=== PATIENT | female | born 1930 | race Caucasian/White ===

== ENCOUNTER 2018-04-16 09:46 | Outpatient (RCR) | payer MEDICARE ==
[~2018-04-16 09:46] MED LIST: ALEN70TA47 PO; COLE3.75 PO; HYDR50TA3 PO; LATA2.5D5 OU; OMEP40CA36 PO; PRAM0.257 PO; WELCHOL PO
== END 2018-05-20 | disposition home or self-care (01) ==
PROVIDERS: ATTEND Physician Assistant
DX: M47.812 Spondylosis without myelopathy or radiculopathy, cervical region (principal); M54.16 Radiculopathy, lumbar region

== ENCOUNTER → 2019-03-11 | Outpatient (CLI) | payer MEDICARE | LOC: CARD 09:57 | PROVIDERS: ATTEND Internal Medicine Cardiovascular Disease | DX: I08.1 Rheumatic disorders of both mitral and tricuspid valves (principal); M79.89 Other specified soft tissue disorders | CPT/HCPCS: 36415; 83880; 84443; 93225; 93226; 93306 ==

== ENCOUNTER → 2019-04-06 | Outpatient (CLI) | payer MEDICARE ==
[~2019-04-06] VITALS: Ht 154.9 cm; Wt 63.5 kg
[~2019-04-06] MED LIST changes: +CATHETER FLUSH 10 ML SYR IV PRN; +REGADENOSON 0.4 MG/5 ML SYR (LEXISCAN) IV ONE
[2019-04-06 09:32] VITALS: BP 204/83
[2019-04-06 09:37] VITALS: BP 158/80
--- NOTE | 2019-04-07 13:19 | STRESS TEST ---
DATE OF SERVICE: 04/06/2019 RESTING AND POST REGADENOSON TECHNETIUM-99M TETROFOSMIN SPECT CT IMAGING ORDERING PHYSICIAN: Dr. Leon. PRIMARY PHYSICIAN: Dr. Mathew. CLINICAL DIAGNOSIS: Shortness of breath. Baseline images were carried out after injection of 10.4 mCi of technetium-99m Tetrofosmin. This was followed by 0.4 mg regadenoson and 30.4 mCi of technetium-99m Tetrofosmin for stress imaging. The electrocardiogram showed sinus rhythm at baseline. There was right bundle branch block. The electrocardiogram did not change significantly with regadenoson infusion. Premature atrial contractions were seen during the study. The patient reported some shortness of breath and cramping of the legs following regadenoson infusion, which resolved in a few minutes. Review of images at rest and following stress does not indicate any significant perfusion defects consistent with any significant myocardial ischemia or infarction. Gated images show normal global left ventricular systolic function with normal regional wall motion and left ventricular ejection fraction is calculated to be 73%. Left ventricular end diastolic volume is 72 mL. TID is absent (0.97). CONCLUSIONS: 1. No evidence of any significant myocardial ischemia or infarction on this study. 2. Normal regional wall motion. 3. Normal global left ventricular systolic function with a calculated ejection fraction of 73%. Job ID: [id number] DocumentID: [id number] Dictated Date: 04/07/2019 09:56:11 Engine Setter Date: 04/07/2019 13:18:52 Dictated By: STEVE LEON MD, MA, FACP, FACC, MTDD
== END ==
LOC: CARD 08:11
PROVIDERS: ATTEND Internal Medicine Cardiovascular Disease
DX: I49.5 Sick sinus syndrome (principal); I48.0 Paroxysmal atrial fibrillation; M79.89 Other specified soft tissue disorders
CPT/HCPCS: 78452; 93017

== ENCOUNTER → 2020-06-01 | Outpatient (CLI) | payer MEDICARE ==
[~2020-06-01] MED LIST changes: -CATHETER FLUSH 10 ML SYR IV PRN; -REGADENOSON 0.4 MG/5 ML SYR (LEXISCAN) IV ONE
== END ==
LOC: CARD 09:47
PROVIDERS: ATTEND Internal Medicine Cardiovascular Disease
DX: I08.3 Combined rheumatic disorders of mitral, aortic and tricuspid valves (principal); I48.0 Paroxysmal atrial fibrillation; I27.29 Other secondary pulmonary hypertension; I49.5 Sick sinus syndrome
CPT/HCPCS: 93306

== ENCOUNTER 2020-10-20 18:58 | Emergency (ER) | payer MEDICARE ==
[~2020-10-20] VITALS: Ht 157.4 cm; Wt 63.5 kg
[2020-10-20] MEDS ORDERED: TRANEXAMIC ACID 100 MG/ML 10 ML INJECTION ONE ×2 (19:03→19:30)
[2020-10-20] MEDS ORDERED: OXYMETAZOLINE (AFRIN) 0.05% NA 30 ML BTL ONE (19:03)
[2020-10-20 19:27] LABS: BASOPHILS # (AUTO) 0.1 10^3/uL (0.0-0.1); BASOPHILS % (AUTO) 1 % (0-10); EOSINOPHILS # (AUTO) 0.2 10^3/uL (0.0-0.3); EOSINOPHILS % (AUTO) 2 % (0-10); HEMATOCRIT 36 % (35-52); HEMOGLOBIN 10.9 g/dL (11.5-16.0); LYMPHOCYTES # (AUTO) 1.7 10^3/uL (1.0-4.0); LYMPHOCYTES % (AUTO) 26 % (12-44); MEAN CORPUSCULAR HEMOGLOBIN 26 pg (25-34); MEAN CORPUSCULAR HGB CONC 30 g/dL (32-36); MEAN CORPUSCULAR VOLUME 86 fL (80-99); MEAN PLATELET VOLUME 9.1 fL (9.0-12.2); MONOCYTES # (AUTO) 0.5 10^3/uL (0.0-1.0); MONOCYTES % (AUTO) 7 % (0-12); NEUTROPHILS # (AUTO) 4.3 10^3/uL (1.8-7.8); NEUTROPHILS % (AUTO) 64 % (42-75); PLATELET COUNT 368 10^3/uL (130-400); WHITE BLOOD COUNT 6.7 10^3/uL (4.3-11.0)
--- NOTE | 2020-10-20 19:29 | ED EENT ---
History of Present Illness General Chief Complaint: Nasal Problems Stated Complaint: NOSEBLEED Source: patient Exam Limitations: no limitations History of Present Illness Date Seen by Provider: Oct 20, 2020 Time Seen by Provider: 17:03 Initial Comments ER with right-sided nosebleed for about 1 hour. She is on warfarin for atrial fibrillation. Timing/Duration: abrupt Severity: moderate Location: nose Associated Symptoms: denies symptoms Allergies and Home Medications Allergies Coded Allergies: diphenhydramine (Verified Allergy, Unknown, 06/17/14) Home Medications Alendronate Sodium 70 Mg Tablet, 70 MG PO TUES @ 0700, (Reported) Hydrochlorothiazide 50 Mg Tablet, 50 MG PO DAILY, (Reported) Latanoprost 2.5 Ml Drops, 1 DROP OU HS, (Reported) Omeprazole 40 Mg Capsule.dr, 40 MG PO DAILY, (Reported) Pramipexole Di-Hcl 0.25 Mg Tablet, 0.25 MG PO HS PRN for RESTLESS LEGS, (Reported) [Welchol] , 625 MG PO BID, (Reported) Patient Home Medication List Home Medication List Reviewed: Yes Review of Systems Review of Systems Constitutional: see HPI Eyes: No Symptoms Reported Ears: No Symptoms Reported Nose: see HPI, epistaxis Mouth: no symptoms reported Throat: no symptoms reported Respiratory: no symptoms reported Cardiovascular: no symptoms reported Gastrointestinal: no symptoms reported Musculoskeletal: no symptoms reported Skin: no symptoms reported Neurological: No Symptoms Reported Past Iswkzjt-Azppxk-Xckvad Hx Immunizations Up To Date Date of Pneumonia Vaccine: Apr 20, 2012 Seasonal Allergies Seasonal Allergies: Yes Past Medical History Hysterectomy, Orthopedic Hypertension Diverticulosis, Irritable Bowel Arthritis Cataract Sleep Difficulties Physical Exam Vital Signs Vital Signs - First Documented 10/20/20 19:00 Temp 36.1 Pulse 123 Resp 20 B/P (MAP) 152/106 (121) Pulse Ox 94 Height, Weight, BMI Height: 5'2.00" Weight: 154lbs. 0.0oz. 69.893192cn; 26.46 BMI Method:Estimated General Appearance: WD/WN, no apparent distress Eyes: bilateral eye normal inspection, bilateral eye PERRL, bilateral eye EOMI Ears: bilateral ear auricle normal, bilateral ear canal normal, bilateral ear TM normal Nose: active bleeding Neck: non-tender, full range of motion Cardiovascular: tachycardia, irregularly irregular Respiratory: no respiratory distress, no accessory muscle use Gastrointestinal: normal bowel sounds, non tender Neurologic/Psychiatric: alert, normal mood/affect, oriented x 3 Skin: warm/dry Progress/Results/Core Measures Results/Orders Lab Results Laboratory Tests Test 10/20/20 19:13 Range/Units White Blood Count 6.7 4.3-11.0 10^3/uL Red Blood Count 4.21 3.80-5.11 10^6/uL Hemoglobin 10.9 L 11.5-16.0 g/dL Hematocrit 36 35-52 % Mean Corpuscular Volume 86 80-99 fL Mean Corpuscular Hemoglobin 26 25-34 pg Mean Corpuscular Hemoglobin Concent 30 L 32-36 g/dL Red Cell Distribution Width 15.2 H 10.0-14.5 % Platelet Count 368 130-400 10^3/uL Mean Platelet Volume 9.1 9.0-12.2 fL Immature Granulocyte % (Auto) 0 % Neutrophils (%) (Auto) 64 42-75 % Lymphocytes (%) (Auto) 26 12-44 % Monocytes (%) (Auto) 7 0-12 % Eosinophils (%) (Auto) 2 0-10 % Basophils (%) (Auto) 1 0-10 % Neutrophils # (Auto) 4.3 1.8-7.8 10^3/uL Lymphocytes # (Auto) 1.7 1.0-4.0 10^3/uL Monocytes # (Auto) 0.5 0.0-1.0 10^3/uL Eosinophils # (Auto) 0.2 0.0-0.3 10^3/uL Basophils # (Auto) 0.1 0.0-0.1 10^3/uL Immature Granulocyte # (Auto) 0.0 0.0-0.1 10^3/uL Prothrombin Time 34.0 H 12.2-14.7 SEC INR Comment 3.3 H 0.8-1.4 Activated Partial Thromboplast Time 46 H 24-35 SEC Sodium Level 138 135-145 MMOL/L Potassium Level 4.5 3.6-5.0 MMOL/L Chloride Level 105 98-107 MMOL/L Carbon Dioxide Level 21 21-32 MMOL/L Anion Gap 12 5-14 MMOL/L Blood Urea Nitrogen 23 H 7-18 MG/DL Creatinine 0.97 0.60-1.30 MG/DL Estimat Glomerular Filtration Rate 54 BUN/Creatinine Ratio 24 Glucose Level 153 H 70-105 MG/DL Calcium Level 8.5 8.5-10.1 MG/DL Corrected Calcium 9.1 8.5-10.1 MG/DL Magnesium Level 2.7 H 1.6-2.4 MG/DL Total Bilirubin 0.3 0.1-1.0 MG/DL Aspartate Amino Transf (AST/SGOT) 13 5-34 U/L Alanine Aminotransferase (ALT/SGPT) 14 0-55 U/L Alkaline Phosphatase 124 40-136 U/L Myoglobin 42.3 10.0-92.0 NG/ML Troponin I < 0.028 <0.028 NG/ML B-Type Natriuretic Peptide 597.2 H <100.0 PG/ML Total Protein 7.9 6.4-8.2 GM/DL Albumin 3.3 3.2-4.5 GM/DL My Orders Orders - MAGNOLIA CLEMENT APRN Oxymetazoline 0.05% Nasal [place] (Afrin 0. (10/20/20 19:03) Tranexamic Acid Injection (Cyklokapron I (10/20/20 19:03) Cbc With Automated Diff (10/20/20 19:19) Magnesium (10/20/20 19:19) Chest 1 View, Ap/Pa Only (10/20/20 19:19) Ekg Tracing (10/20/20 19:19) Comprehensive Metabolic Panel (10/20/20 19:19) Myoglobin Serum (10/20/20 19:19) Protime With Inr (10/20/20 19:19) Partial Thromboplastin Time (10/20/20 19:19) O2 (10/20/20 19:19) Monitor-Rhythm Ecg Trace Only (10/20/20 19:19) Lipid Panel (10/21/20 06:00) Ed Iv/Invasive Line Start (10/20/20 19:19) BNP (10/20/20 19:19) Troponin I (10/20/20 19:19) Tranexamic Acid Injection (Cyklokapron I (10/20/20 19:30) Tranexamic Acid Injection (Cyklokapron I (10/20/20 19:30) Diltiazem Drip Pre-Mix (Cardizem Drip Pr (10/20/20 19:30) Diltiazem Injection (Cardizem Injection) (10/20/20 19:30) Metoprolol Tartrate Injection (Lopressor (10/20/20 20:15) Metoprolol Tartrate Injection (Lopressor (10/20/20 20:15) Medications Given in ED Current Medications Medications Dose Ordered Sig/Renetta Route Start Time Stop Time Status Last Admin Dose Admin Metoprolol Tartrate 5 mg ONCE ONCE IV 10/20/20 20:15 10/20/20 20:16 DC 10/20/20 20:08 5 MG Metoprolol Tartrate 5 mg ONCE ONCE IV 10/20/20 20:15 10/20/20 20:16 DC 10/20/20 20:40 5 MG Oxymetazoline HCl 30 ml STK-MED ONCE .ROUTE 10/20/20 19:03 10/20/20 19:10 DC 10/20/20 20:22 30 ML Tranexamic Acid apply topically ... ONCE ONCE NA 10/20/20 19:30 10/20/20 19:31 DC 10/20/20 19:10 2 MG Vital Signs/I&O 10/20/20 19:00 Temp 36.1 Pulse 123 Resp 20 B/P (MAP) 152/106 (121) Pulse Ox 94 Departure Communication (Admissions) 1918 patient is alert and oriented very pleasant there is blood coming from the right nostril. Certainly not hemorrhaging. She did cough up a few clots from the back of her throat. However after doing so there is no active bleeding running down the back of her throat. Minimal blood coming out the front. It does appear that the anterior portion of the septum on the right is the source of bleeding. We placed a Merocel sponge again saturated that with Afrin and TXA. Then applied a nose clamp. She is also noted to be in atrial fibrillation with a rapid ventricular response rate of 1 15-1 40. As such we established IV access check labs for an INR as well as electrolytes. We will also give a 5mg lopressor dose IV. 2019-packing was subsequently removed, there was a small area of oozing blood on the right side of the septum. This was cauterized with a few silver nitrate sticks resulting in hemostasis. 2048-still no blood coming from the nose. Additionally there is no blood in oropharynx. Heart rate after 2 doses of IV Lopressor is down into the 80s and 90s still atrial fibrillation blood pressure 106 systolic. I will plan to give her a 25 mg Toprol-XL and instruct her to return for heart rate over 120 and otherwise follow-up with primary care and cardiology.. I discussed with the kem carias and the daughter that area medication list. They confirm that she is not on any beta-moe or calcium channel moe, as of now nothing has been required for rate control. Impression Primary Impression: Atrial fibrillation with RVR Additional Impression: Epistaxis Disposition: HOME, SELF-CARE Condition: Improved Departure-Patient Inst. Decision time for Depature: 20:19 Referrals: KULDEEP HOGAN MD (PCP/Family) Primary Care Physician Patient Instructions: Nosebleeds (DC), Atrial Fibrillation Add. Discharge Instructions: You should return to the emergency room for a heart rate over 120. Follow-up with your java web engineer next week, call Friday for an appointment. Also, if you have a recurrent nosebleed, spray 2 sprays of Afrin after each side of the nose and then apply the nose clamp and lean forward. If this fails to resolve the nosebleed after about 20 minutes then return to the emergency room All discharge instructions reviewed with patient and/or family. Voiced understanding. MAGNOLIA CLEMENT JOCKEY ROOM CUSTODIAN Oct 20, 2020 19:29
[2020-10-20] MEDS ORDERED: dilTIAZem DRIP PRE-MIX 125 ML IV SCH (19:30)
[2020-10-20] MEDS ORDERED: TRANEXAMIC ACID INJECTION 1,000 MG in NS (IVPB) 50 ML IV ONE (19:30)
[2020-10-20 19:41] LABS: INR 3.3 (0.8-1.4)
[2020-10-20 19:45] LABS: ALBUMIN 3.3 GM/DL (3.2-4.5); BILIRUBIN,TOTAL 0.3 MG/DL (0.1-1.0); CALCIUM 8.5 MG/DL (8.5-10.1); CREATININE SERUM 0.97 MG/DL (0.60-1.30); MAGNESIUM 2.7 MG/DL (1.6-2.4); POTASSIUM 4.5 MMOL/L (3.6-5.0); TOTAL PROTEIN 7.9 GM/DL (6.4-8.2)
--- NOTE | 2020-10-20 19:59 | Diagnostic Imaging Report ---
INDICATION: Chest pain. No comparisons are available. FINDINGS: There is enlargement of the cardiac silhouette. The pulmonary vascularity appears appropriate without evidence to suggest failure or edema. There is prominence demonstrated of the pulmonary interstitial markings within both lungs. There are no priors available but these are believed to likely be chronic senescent changes. Correlate for any smoking history. There is no dense alveolar consolidation or evidence of an effusion. There is no pneumothorax. IMPRESSION: 1. Enlarged cardiac silhouette without evidence of failure. 2. Bilateral pulmonary interstitial prominence is likely chronic and may relate to interstitial lung disease or senescent changes. There is no dense alveolar consolidation to suggest pneumonia by plain radiography. There are no findings of an effusion or pneumothorax. Dictated by: Dictated on workstation # [id number]
[2020-10-20] MEDS ORDERED: meTOprolol 5 MG/5 ML (LOPRESSOR) VIAL IV ONE ×2 (20:15)
[2020-10-20 21:31] VITALS: BP 128/86
== END 2020-10-20 21:31 | disposition home or self-care (01) ==
LOC: EDUNIT# 18:58 → ER 18:59
DX: R04.0 Epistaxis (principal); I48.91 Unspecified atrial fibrillation; R00.0 Tachycardia, unspecified; I10 Essential (primary) hypertension; Z88.8 Allergy status to other drugs, medicaments and biological substances; Z79.01 Long term (current) use of anticoagulants
CPT/HCPCS: 36415; 71045; 80053; 83735; 83874; 83880; 84484; 85025; 85610; 85730; 93005; 93041

== ENCOUNTER → 2021-02-05 | Outpatient (CLI) | payer MEDICARE | LOC: WOUNDCARE 09:45 | PROVIDERS: ATTEND Surgery | DX: I87.332 Chronic venous hypertension (idiopathic) with ulcer and inflammation of left lower extremity (principal); I89.0 Lymphedema, not elsewhere classified; L97.221 Non-pressure chronic ulcer of left calf limited to breakdown of skin | CPT/HCPCS: 99213 ==

== ENCOUNTER → 2021-02-12 | Outpatient (CLI) | payer MEDICARE | LOC: WOUNDCARE 15:15 | PROVIDERS: ATTEND Surgery | DX: I87.332 Chronic venous hypertension (idiopathic) with ulcer and inflammation of left lower extremity (principal); I96 Gangrene, not elsewhere classified; I89.0 Lymphedema, not elsewhere classified; L97.221 Non-pressure chronic ulcer of left calf limited to breakdown of skin | CPT/HCPCS: 99212 ==

== ENCOUNTER 2021-03-28 19:00 | Inpatient (IN) | payer MEDICARE ==
[~2021-03-28] VITALS: Ht 154.9 cm; Wt 62.8 kg
--- NOTE | 2021-03-28 19:43 | ED Cough/URI ---
General Stated Complaint: COUGH AND FEVER Source: patient Exam Limitations: no limitations History of Present Illness Date Seen by Provider: Mar 28, 2021 Time Seen by Provider: 19:15 Initial Comments Patient to the ER by private conveyance with her daughter Terrance and chief complaint that she has not felt well with a sore throat since Friday, 2 days ago. She developed cough nonproductive yesterday and a T-max of 99 today. Her daughter had similar symptoms about 5 to 6 days ago and is at her house daily. She states she was wearing a mask after she started having a sore throat and a cough. Patient states she is not having any dysuria or nausea but she is having constipation and poor appetite. Patient uses warfarin for blood thinning. Allergies and Home Medications Allergies Coded Allergies: diphenhydramine (Verified Allergy, Unknown, 10/20/20) Patient Home Medication List Home Medication List Reviewed: Yes Alendronate Sodium (Alendronate Sodium) 70 Mg Tablet, 70 MG PO TUES @ 0700, (Reported) Entered as Reported by: LUDMILA CALDWELL on 06/17/14 1032 Hydrochlorothiazide (Hydrochlorothiazide) 50 Mg Tablet, 50 MG PO DAILY, (Reported) Entered as Reported by: LUDMILA CALDWELL on 06/17/14 1032 Latanoprost (Latanoprost) 2.5 Ml Drops, 1 DROP OU HS, (Reported) Entered as Reported by: CHE LEE on 06/17/14 1459 Omeprazole (Omeprazole) 40 Mg Capsule.dr, 40 MG PO DAILY, (Reported) Entered as Reported by: LUDMILA CALDWELL on 06/17/14 1032 Pramipexole Di-Hcl (Pramipexole Dihydrochloride) 0.25 Mg Tablet, 0.25 MG PO HS PRN for RESTLESS LEGS, (Reported) Entered as Reported by: CHE LEE on 06/17/14 1456 [Welchol] , 625 MG PO BID, (Reported) Entered as Reported by: CHE LEE on 06/17/14 1456 Review of Systems Review of Systems Constitutional: chills; No diaphoresis, No fever; malaise, weakness EENTM: No ear discharge, No ear pain Respiratory: cough; No phlegm; short of breath Cardiovascular: No edema, No palpitations, No syncope Gastrointestinal: No abdominal pain; constipation; No diarrhea, No nausea, No vomiting Genitourinary: No dysuria, No hematuria Musculoskeletal: No back pain, No gout, No joint pain Skin: No pruritus, No rash Psychiatric/Neurological: Denies Anxiety, Denies Depressed All Other Systems Reviewed Negative Unless Noted: Yes Past Fkegslc-Pvibki-Fpciwm Hx Patient Social History Tobacco Use?: No Use of E-Cig and/or Vaping dev: No Substance use?: No Alcohol Use?: No Immunizations Up To Date Tetanus Booster (TDap): Unknown Seasonal Allergies Seasonal Allergies: Yes Past Medical History Surgeries: Yes (COLON RESECTION) Hysterectomy, Orthopedic Respiratory: No Cardiac: Yes Atrial Fibrillation, Hypertension Neurological: No Genitourinary: No Gastrointestinal: Yes Diverticulosis, Irritable Bowel Musculoskeletal: Yes Arthritis Endocrine: No HEENT: Yes Cataract Cancer: No Psychosocial: Yes Sleep Difficulties Integumentary: No Physical Exam Vital Signs - First Documented 03/28/21 19:36 O2 Flow Rate 2.00 Capillary Refill : Height: 5'2.00" Weight: 154lbs. 0.0oz. 69.425222ax; 25.00 BMI Method:Estimated General Appearance: WD/WN, moderate distress Eyes: Bilateral Eye Normal Inspection, Bilateral Eye PERRL, Bilateral Eye EOMI HEENT: PERRL/EOMI, pharynx normal Neck: full range of motion, normal inspection Respiratory: lungs clear, normal breath sounds, respiratory distress (30 to 35 breaths/min oxygen saturation 92% on room air) Cardiovascular: normal peripheral pulses, regular rate, rhythm Gastrointestinal: normal bowel sounds, non tender Extremities: normal range of motion, non-tender, no calf tenderness, normal capillary refill Neurologic/Psychiatric: alert, oriented x 3, other (Somnolent, GCS 14) Skin: normal color, warm/dry Focused Exam Sepsis Stage: Sepsis Possible Source: Pulmonary Lactate Level 03/28/21 19:34: Lactic Acid Level 1.27 Time of Focused Exam: 20:30 Respiratory: Lungs Clear, Normal Breath Sounds, No Respiratory Distress (Mild to moderate with oxygen saturations 92 to 96% on 2 L by nasal cannula, respiratory rate 20 to 24 breaths/min) Cardiovascular: Regular Rate, Rhythm, No JVD, Normal Peripheral Pulses Capillary Refill: Less Than 3 Seconds Peripheral Pulses: 1+ Dorsalis Pedis (R), 1+ Left Dors-Pedis (L); 2+ Radial Pulses (R), 2+ Radial Pulses (L) Skin: normal color, warm/dry Lactic Acid Level Laboratory Tests Test 03/28/21 19:34 Lactic Acid Level 1.27 MMOL/L (0.50-2.00) Within 3hrs of presentation: Admin fluids (20 mL/kg), Admin ABX, Blood cultures prior to ABX's, Focus exam, Lactate level Progress/Results/Core Measures Suspected Sepsis SIRS Temperature: Pulse: Respiratory Rate: Laboratory Tests 03/28/21 19:34: White Blood Count 9.0 Blood Pressure / Mean: 03/28/21 19:34: Lactic Acid Level 1.27 Laboratory Tests 03/28/21 19:34: Creatinine 0.84, INR Comment 1.7H, Platelet Count 292, Total Bilirubin 0.5 Results/Orders Lab Results Laboratory Tests Test 03/28/21 19:34 03/28/21 19:37 03/28/21 19:40 03/28/21 19:41 Range/Units White Blood Count 9.0 4.3-11.0 10^3/uL Red Blood Count 4.61 3.80-5.11 10^6/uL Hemoglobin 12.4 11.5-16.0 g/dL Hematocrit 41 35-52 % Mean Corpuscular Volume 88 80-99 fL Mean Corpuscular Hemoglobin 27 25-34 pg Mean Corpuscular Hemoglobin Concent 31 L 32-36 g/dL Red Cell Distribution Width 17.0 H 10.0-14.5 % Platelet Count 292 130-400 10^3/uL Mean Platelet Volume 9.2 9.0-12.2 fL Immature Granulocyte % (Auto) 0 % Neutrophils (%) (Auto) 78 H 42-75 % Lymphocytes (%) (Auto) 13 12-44 % Monocytes (%) (Auto) 8 0-12 % Eosinophils (%) (Auto) 2 0-10 % Basophils (%) (Auto) 0 0-10 % Neutrophils # (Auto) 7.0 1.8-7.8 10^3/uL Lymphocytes # (Auto) 1.1 1.0-4.0 10^3/uL Monocytes # (Auto) 0.7 0.0-1.0 10^3/uL Eosinophils # (Auto) 0.1 0.0-0.3 10^3/uL Basophils # (Auto) 0.0 0.0-0.1 10^3/uL Immature Granulocyte # (Auto) 0.0 0.0-0.1 10^3/uL Prothrombin Time 20.7 H 12.2-14.7 SEC INR Comment 1.7 H 0.8-1.4 Activated Partial Thromboplast Time 32 24-35 SEC Sodium Level 138 135-145 MMOL/L Potassium Level 4.2 3.6-5.0 MMOL/L Chloride Level 103 98-107 MMOL/L Carbon Dioxide Level 24 21-32 MMOL/L Anion Gap 11 5-14 MMOL/L Blood Urea Nitrogen 20 H 7-18 MG/DL Creatinine 0.84 0.60-1.30 MG/DL Estimat Glomerular Filtration Rate 64 BUN/Creatinine Ratio 24 Glucose Level 114 H 70-105 MG/DL Lactic Acid Level 1.27 0.50-2.00 MMOL/L Calcium Level 9.6 8.5-10.1 MG/DL Corrected Calcium 9.8 8.5-10.1 MG/DL Total Bilirubin 0.5 0.1-1.0 MG/DL Aspartate Amino Transf (AST/SGOT) 34 5-34 U/L Alanine Aminotransferase (ALT/SGPT) 30 0-55 U/L Alkaline Phosphatase 109 40-136 U/L B-Type Natriuretic Peptide 621.9 H <100.0 PG/ML Total Protein 8.3 H 6.4-8.2 GM/DL Albumin 3.7 3.2-4.5 GM/DL Influenza Type A (RT-PCR) Not Detected Not Detecte Influenza Type B (RT-PCR) Not Detected Not Detecte SARS-CoV-2 RNA (RT-PCR) Not Detected Not Detecte Blood Gas Puncture Site L RADIAL Blood Gas Patient Temperature 37.2 Arterial Blood pH 7.45 H 7.37-7.43 Arterial Blood Partial Pressure CO2 37 35-45 MMHG Arterial Blood Partial Pressure O2 78 L 79-93 MMHG Arterial Blood HCO3 25 23-27 MMOL/L Arterial Blood Total CO2 26.3 21.0-31.0 MMOL/L Arterial Blood Oxygen Saturation 96 94-100 % Arterial Blood Base Excess 1.5 -2.5-2.5 MMOL/L [place] Test YES-POS Blood Gas Ventilator Setting NO Blood Gas Inspired Oxygen 2L NC Urine Color YELLOW Urine Clarity CLEAR Urine pH 7.5 5-9 Urine Specific [place] 1.020 1.016-1.022 Urine Protein 1+ H NEGATIVE Urine Glucose (UA) NEGATIVE NEGATIVE Urine Ketones NEGATIVE NEGATIVE Urine Nitrite NEGATIVE NEGATIVE Urine Bilirubin NEGATIVE NEGATIVE Urine Urobilinogen 0.2 < = 1.0 MG/DL Urine Leukocyte Esterase NEGATIVE NEGATIVE Urine RBC (Auto) TRACE-I NEGATIVE Urine RBC 5-10 H /HPF Urine WBC NONE /HPF Urine Crystals PRESENT H /LPF Urine Amorphous Sediment RARE DEEP PHOSPHATE H /LPF Urine Bacteria NEGATIVE /HPF Urine Casts NONE /LPF Urine Mucus NEGATIVE /LPF Urine Culture Indicated CULTURE PENDING My Orders Orders - SHALA RUIZ Arterial Blood Gas (03/28/21 19:40) Cbc With Automated Diff (03/28/21 19:43) Comprehensive Metabolic Panel (03/28/21 19:43) Blood Culture (03/28/21 19:43) Urinalysis (03/28/21 19:43) Urine Culture (03/28/21 19:43) Protime With Inr (03/28/21 19:43) Partial Thromboplastin Time (03/28/21 19:43) Chest 1 View, Ap/Pa Only (03/28/21 19:43) Acetaminophen Tablet (Tylenol Tablet) (03/28/21 19:45) Ed Iv/Invasive Line Start (03/28/21 19:43) Ed Iv/Invasive Line Start (03/28/21 19:43) Vital Signs Adult Sepsis Patie Q15M (03/28/21 19:43) O2 (03/28/21 19:43) Remove Rings In Anticipation O (03/28/21 19:43) Lactic Acid Analyzer (03/28/21 19:43) Ns Iv 1000 Ml (Sodium Chloride 0.9%) (03/28/21 19:45) Ceftriaxone (Rocephin) (03/28/21 19:45) Azithromycin Injection (Zithromax Inject (03/28/21 19:45) Ed Iv/Invasive Line Start (03/28/21 19:45) Ns Iv 500 Ml (Sodium Chloride 0.9%) (03/28/21 19:45) Diltiazem Injection (Cardizem Injection) (03/28/21 20:00) BNP (03/28/21 20:03) Covid 19 Inhouse Test (03/28/21 20:04) Influenza A And B By Pcr (03/28/21 20:04) Isolation Central Supply Req (03/28/21 20:04) Straight Cath For Spec.-Adult (03/28/21 20:35) Medications Given in ED Current Medications Medications Dose Ordered Sig/Renetta Route Start Time Stop Time Status Last Admin Dose Admin Acetaminophen 1,000 mg ONCE PRN PO 03/28/21 19:45 03/28/21 19:57 DC 03/28/21 19:57 1,000 MG Azithromycin 500 mg/Sodium Chloride 255 ml @ 250 mls/hr ONCE ONCE IV 03/28/21 19:45 03/28/21 20:46 DC 03/28/21 19:57 250 MLS/HR Ceftriaxone Sodium 1000 mg/ Sterile Water 10 ml @ 200 mls/hr ONCE ONCE IV 03/28/21 19:45 03/28/21 19:47 DC 03/28/21 19:56 200 MLS/HR Diltiazem HCl 10 mg ONCE ONCE IVP 03/28/21 20:00 03/28/21 20:01 DC 03/28/21 19:55 10 MG Sodium Chloride 500 ml @ 0 mls/hr Q0M ONCE IV 03/28/21 19:45 03/28/21 19:46 DC 03/28/21 19:55 999 MLS/HR Vital Signs/I&O 03/28/21 03/28/21 03/28/21 19:26 19:26 19:36 Temp 37.1 Pulse 141 Resp 22 B/P (MAP) 166/137 (147) Pulse Ox 93 O2 Delivery Room Air Room Air Nasal Cannula O2 Flow Rate 2.00 03/29/21 00:00 Intake Total 1765 ml Balance 1765 ml Capillary Refill : Progress Note #1: Time: 19:47 Progress Note Based on her respiratory rate, septic presentation and oxygen saturation in the low 90s I suspect a pneumonia. Covid is certainly a possibility. We'll get a flu swab as well. Chest x-ray and will start with 1500 cc of fluid which would be greater than 20 mL/kg. The patient does appear to be quite dry and states she has been very constipated and had poor oral intake for the past several days. ABG will be obtained. If she does indeed have Covid and will give her some steroids. She has a significant elevated blood pressure of 189/100 and heart rate in the one 20-1 40 range A. fib. We'll give her some fluids and a dose of Cardizem IV. Progress Note #2: Time: 20:35 Progress Note The chest x-ray waffles between either a multifocal infection atypical such as Covid versus pulmonary edema. Given the patient's BNP of 600 and her past running between 200-500 this is not impressive. Covid test is still pending Diagnostic Imaging Diagonstic Imaging: Xray Plain Films/CT/US/NM/MRI: chest Comments [facility]. [place], [place] NAME: [facility] REC#: [id number] PT STATUS: REG ER : 1932 PHYSICIAN: SHALA RUIZ MD ADMIT DATE: 03/28/21/ER Draft Date of Exam:03/28/21 CHEST 1 VIEW, AP/PA ONLY Chest 1 view, AP/PA only. Indication: Sepsis. Comparison: 10/20/2020. Findings: Enlargement of the cardiac silhouette is unchanged. Ill-defined peripheral opacities are present in the bilateral lungs. No pneumothorax or pleural effusion. Impression: Cardiomegaly with bilateral pulmonary opacities that could be due to edema or multifocal infection. Dictated on workstation # [id number] Dict: 03/28/212025 Trans: 03/28/212029 [facility] [id number] Interpreted by: RICH MCKEON MD Electronically signed by: Reviewed: Reviewed by Me Departure Communication (Admissions) Time/Spoke to Admitting Phy: 20:50 Discussed the case with Dr. Jhaveri and he agrees to admit the patient on Rocephin, azithromycin, gentle IV rehydration and continue warfarin. Impression Primary Impression: Pneumonia Qualified Codes: J18.9 - Pneumonia, unspecified organism Additional Impressions: Acute respiratory failure with hypoxemia Atrial fibrillation and flutter Sepsis Qualified Codes: A41.9 - Sepsis, unspecified organism; R65.20 - Severe sepsis without septic shock; J96.01 - Acute respiratory failure with hypoxia Disposition: ADMITTED INPATIENT Condition: Stable Admissions Decision to Admit Reason: Admit from ER (General) Decision to Admit/Date: Mar 28, 2021 Time/Decision to Admit Time: 20:45 Departure-Patient Inst. Referrals: KULDEEP HOGAN MD (PCP/Family) Primary Care Physician SHALA RUIZ Mar 28, 2021 19:42
[2021-03-28] MEDS ORDERED: NS IV 1000 ML 1,000 ML IV SCH (19:45)
[2021-03-28] MEDS ORDERED: cefTRIAXone 1,000 MG in WATER (STERILE) FOR INJECTION 10 ML IV ONE (19:45)
[2021-03-28] MEDS ORDERED: AZITHROMYCIN INJECTION 500 MG in NS (IVPB) 250 ML IV ONE (19:45)
[2021-03-28] MEDS ORDERED: ACETAMINOPHEN 500 MG TAB (TYLENOL) PO PRN ×2 (19:45→22:00)
[2021-03-28] MEDS ORDERED: NS IV 500 ML 500 ML IV ONE (19:45)
[2021-03-28 19:47] LABS: ABG BASE EXCESS 1.5 MMOL/L (-2.5-2.5); ABG OXYGEN SATURATION 96 % (94-100); ABG PCO2 37 MMHG (35-45); ABG PH 7.45 (7.37-7.43); ABG PO2 78 MMHG (79-93); ABG TCO2 26.3 MMOL/L (21.0-31.0); ALLENS TEST YES-POS
[2021-03-28 19:48] LABS: INSPIRED O2 2L NC; PATIENT TEMP 37.2; VENTILATOR NO
[2021-03-28 19:51] LABS: BASOPHILS % (AUTO) 0 % (0-10); EOSINOPHILS # (AUTO) 0.1 10^3/uL (0.0-0.3); EOSINOPHILS % (AUTO) 2 % (0-10); HEMATOCRIT 41 % (35-52); HEMOGLOBIN 12.4 g/dL (11.5-16.0); LYMPHOCYTES # (AUTO) 1.1 10^3/uL (1.0-4.0); LYMPHOCYTES % (AUTO) 13 % (12-44); MEAN CORPUSCULAR HEMOGLOBIN 27 pg (25-34); MEAN CORPUSCULAR HGB CONC 31 g/dL (32-36); MEAN CORPUSCULAR VOLUME 88 fL (80-99); MEAN PLATELET VOLUME 9.2 fL (9.0-12.2); MONOCYTES # (AUTO) 0.7 10^3/uL (0.0-1.0); MONOCYTES % (AUTO) 8 % (0-12); NEUTROPHILS % (AUTO) 78 % (42-75); PLATELET COUNT 292 10^3/uL (130-400)
[2021-03-28 19:55] LABS: BILIRUBIN,URINE NEGATIVE (NEGATIVE); CLARITY,URINE CLEAR; COLOR,URINE YELLOW; GLUCOSE, URINE (UA) NEGATIVE (NEGATIVE); KETONES,URINE NEGATIVE (NEGATIVE); LEUKOCYTE ESTERASE ,URINE NEGATIVE (NEGATIVE); NITRITE,URINE NEGATIVE (NEGATIVE); PH,URINE 7.5 (5-9); PROTEIN,URINE 1+ (NEGATIVE)
[2021-03-28 19:59] LABS: INR 1.7 (0.8-1.4); PROTHROMBIN TIME PATIENT 20.7 SEC (12.2-14.7)
[2021-03-28 20:07] LABS: AMORPHOUS SEDIMENT,UR RARE AMOR PHOSPHATE /LPF; BACTERIA,URINE NEGATIVE /HPF
[2021-03-28 20:08] LABS: ALBUMIN 3.7 GM/DL (3.2-4.5); BILIRUBIN,TOTAL 0.5 MG/DL (0.1-1.0); CALCIUM 9.6 MG/DL (8.5-10.1); CREATININE SERUM 0.84 MG/DL (0.60-1.30); POTASSIUM 4.2 MMOL/L (3.6-5.0); TOTAL PROTEIN 8.3 GM/DL (6.4-8.2)
--- NOTE | 2021-03-28 20:30 | Diagnostic Imaging Report ---
Chest 1 view, AP/PA only. Indication: Sepsis. Comparison: 10/20/2020. Findings: Enlargement of the cardiac silhouette is unchanged. Ill-defined peripheral opacities are present in the bilateral lungs. No pneumothorax or pleural effusion. Impression: Cardiomegaly with bilateral pulmonary opacities that could be due to edema or multifocal infection. Dictated by: Dictated on workstation # [id number]
[2021-03-28 21:38] VITALS: BP 151/86
[2021-03-28] MEDS ORDERED: PRAMIPEXOLE 0.125 MG (MIRAPEX) TABLET PO PRN (22:00)
[2021-03-28] MEDS ORDERED: HYDROcodone/APAP 5 MG/325 MG (LORTAB) TAB PO PRN (22:00)
[2021-03-28] MEDS ORDERED: traZODone 50 MG (DESYREL) TAB PO PRN (22:00)
[2021-03-28 22:18] VITALS: BP 166/137
[2021-03-28] MEDS: LACTATED RINGERS 1,000 ML IV SCH (22:21)
[2021-03-28] MEDS: GABAPENTIN 100 MG (NEURONTIN) CAP PO SCH (22:21)
[2021-03-28] MEDS ORDERED: RT-ALBUTEROL/IPRATROPIUM 3 ML (DUONEB) VIAL INH PRN (22:30)
[2021-03-28 23:53] VITALS: BP 133/78
[2021-03-29 04:00] VITALS: BP 159/87
[2021-03-29 06:16] LABS: BASOPHILS % (AUTO) 1 % (0-10); EOSINOPHILS # (AUTO) 0.2 10^3/uL (0.0-0.3); EOSINOPHILS % (AUTO) 3 % (0-10); HEMATOCRIT 36 % (35-52); HEMOGLOBIN 10.7 g/dL (11.5-16.0); LYMPHOCYTES # (AUTO) 1.1 10^3/uL (1.0-4.0); LYMPHOCYTES % (AUTO) 19 % (12-44); MEAN CORPUSCULAR HEMOGLOBIN 27 pg (25-34); MEAN CORPUSCULAR HGB CONC 30 g/dL (32-36); MEAN CORPUSCULAR VOLUME 90 fL (80-99); MEAN PLATELET VOLUME 9.2 fL (9.0-12.2); MONOCYTES # (AUTO) 0.5 10^3/uL (0.0-1.0); MONOCYTES % (AUTO) 9 % (0-12); NEUTROPHILS # (AUTO) 4.2 10^3/uL (1.8-7.8); NEUTROPHILS % (AUTO) 69 % (42-75); PLATELET COUNT 195 10^3/uL (130-400)
[2021-03-29 06:19] LABS: CALCIUM 8.6 MG/DL (8.5-10.1)
[2021-03-29 06:23] LABS: CREATININE SERUM 0.74 MG/DL (0.60-1.30)
[2021-03-29] MEDS: RT-ALBUTEROL/IPRATROPIUM 3 ML (DUONEB) VIAL INH SCH ×5 (07:25→22:10)
[2021-03-29] MEDS: dilTIAZem120 MG (CARDIZEM CD) CAP PO SCH ×2 (08:05→21:27)
[2021-03-29] MEDS: LACTATED RINGERS 1,000 ML IV SCH (08:06)
[2021-03-29 08:08] VITALS: BP 151/82
[2021-03-29] MEDS ORDERED: DOCU100T7 PO (08:43)
[2021-03-29] MEDS ORDERED: POTA10TA6 PO (08:43)
[2021-03-29] MEDS ORDERED: TIMO5DRO5 OU (08:43)
[2021-03-29] MEDS ORDERED: FAMO20TA5 PO (08:43)
[2021-03-29] MEDS ORDERED: FURO40TA4 PO (08:43)
[2021-03-29] MEDS ORDERED: TRAM50TA3 PO (08:43)
[2021-03-29] MEDS ORDERED: DILT-27 PO (08:43)
[2021-03-29] MEDS ORDERED: WARF-48 PO ×2 (08:43)
[2021-03-29] MEDS ORDERED: HYOS-6 PO (08:43)
[2021-03-29] MEDS ORDERED: LORA10TA7 PO (08:43)
[2021-03-29] MEDS ORDERED: GABA-486 PO (08:43)
[2021-03-29] MEDS ORDERED: PRAM0.257 PO (08:43)
[2021-03-29] MEDS ORDERED: OMEP20CA18 PO (08:43)
[2021-03-29] MEDS ORDERED: LATA2.5D19 OU (08:43)
--- NOTE | 2021-03-29 09:34 | History & Physical-Hospitalist ---
JOSEKANIKA A MED STUDENT 03/29/21 0934: History of Present Illness HPI/Chief Complaint Pt was admitted from ED to floor for pneumonia, sepsis and acute respiratory failure with hypoxemia. Pt is up in bed eating breakfast with daughter at bedside this morning. Pt reports she started to have cough and sore throat on Friday, but this worsened last noc, which prompted her to come to the ED. Pt states she feels about the same today as yesterday. She did not sleep well d/t issues with her pure wick. Pt reports she does not use oxygen at home. She is wheelchair bound and lives at home with her who is also in the hospital currently. She has home health two days per week, a nurse two days per week and a cleaning lady weekly. Source: patient, family (Daughter at bedside) Exam Limitations: no limitations Date Seen 03/29/21 Time Seen by a Provider: 08:38 Attending Physician Butch Jhaveri MD PCP Leticia Mathew MD Referring Physician Date of Admission Mar 28, 2021 at 21:00 Home Medications & Allergies Home Medications Reviewed patient Home Medication Reconciliation performed by pharmacy medication reconciliations measurement and sensing technician and/or nursing. Patients Allergies have been reviewed. Allergies Allergies Coded Allergies diphenhydramine (Verified Allergy, Unknown, 10/20/20) Past Mdnxpcl-Kkeukt-Vxexwb Hx Patient Social History Tobacco Use?: Yes Smoking Status: Never a Smoker Smokeless Tobacco Frequency: Never a User Use of E-Cig and/or Vaping dev: No Substance use?: No Alcohol Use?: No Pt feels they are or have been: No Immunizations Up To Date First/Initial COVID19 Vaccinat: AUGUST 2020 Second COVID19 Vaccination Pasquale: SEPTEMBER 2020 Tetanus Booster (TDap): Unknown Date of Pneumonia Vaccine: Apr 20, 2012 Seasonal Allergies Seasonal Allergies: Yes Current Status status: No status: No Advance Directives: No Communicates: Verbally Primary Language: Polish Preferred Spoken Language: Polish Is interpretation needed?: No Sensory deficits: Vision impairment, Hearing impairment Implanted or Applied Medical D: None Past Medical History Surgeries: Hysterectomy, Orthopedic Atrial Fibrillation, Hypertension Diverticulosis, Irritable Bowel Arthritis Cataract Sleep Difficulties Review of Systems Constitutional: no symptoms reported EENTM: throat pain Respiratory: cough, short of breath Cardiovascular: No chest pain, No palpitations Gastrointestinal: No abdominal pain; constipation (hx of IBS), diarrhea (hx of IBS); No loss of appetite, No nausea, No vomiting Genitourinary: no symptoms reported Skin: no symptoms reported Psychiatric/Neurological: No Symptoms Reported Physical Exam Physical Exam Vital Signs Vital Signs - First Documented 03/28/21 03/28/21 19:36 22:18 O2 Flow Rate 2.00 FiO2 21 Capillary Refill : Less Than 3 Seconds Height, Weight, BMI Height: 5'2.00" Weight: 154lbs. 0.0oz. 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 Assessment/Plan Admission Diagnosis Community Acquired Pneumonia Sepsis Acute respiratory failure with hypoxemia Reason for Inpatient Admission: Community Acquired Pneumonia Sepsis Acute respiratory failure with hypoxemia Assessment and Plan Community Acquired Pneumonia Sepsis Acute respiratory failure with hypoxemia Afib HTN Diverticulosis with hx of bowel resection Community Acquired Pneumonia CXR Impression: Cardiomegaly with bilateral pulmonary opacities that could be due to edema or multifocal infection. -Currently on Azithromycin and Ceftriaxone Sepsis -Blood cultures pending. -Azithromycin and Ceftriaxone -Lactated ringers for fluid resuscitation. Will decrease after lunch if pt able to eat well. Acute respiratory failure with hypoxemia -3L O2 on NC -Duoneb treatments -ABG shows mild respiratory alkalosis with pO2 of 78. Afib -Currently on Diltiazem and Warfarin HTN -Will continue to monitor Diverticulosis with hx of bowel resection DVT ppx with SCDs RAHEEM YE MD 03/29/21 2685: Review of Systems All Other Systems Reviewed Negative Unless Noted: Yes (Negative excepted noted.) Assessment/Plan Admission Diagnosis Admission Status: Inpatient Order (span 2 midnights) Reason for Inpatient Admission: see below Assessment and Plan Patient admitted due to sepsis from CAP. Breathing better today and doing well. Daughter at bedside. Plan to keep in hospital again tonight for IV abx and oxygen weaning. also happens to be admitted and she inquires about him. Diagnosis/Problems Diagnosis/Problems (1) Acute respiratory failure with hypoxemia Status: Acute (2) Pneumonia Status: Acute Qualifiers: Pneumonia type: due to unspecified organism Laterality: bilateral Lung location: unspecified part of lung Qualified Codes: J18.9 - Pneumonia, un specified organism (3) Sepsis Status: Acute Qualifiers: Sepsis type: sepsis due to unspecified organism Sepsis acute organ dysfunc tion status: with acute organ dysfunction Severe sepsis acute organ dysfuncti on type: acute respiratory failure Acute respiratory failure type: with hypoxia Severe sepsis shock status: without septic shock Qualified Codes: A41.9 - Sepsis, unspecified organism; R65.20 - Severe sepsis without septic shock; J96.01 - Acute respiratory failure with hypoxia Supervisory-Addendum Brief Verification & Attestation Participated in pt care: history, MDM, physical Personally performed: exam, history, MDM, supervision of care Care discussed with: Medical Student Procedures: n/a Results interpretation: Verified all documentation Verification and Attestation of Medical Student E/M Service A medical student performed and documented this service in my presence. I reviewed and verified all information documented by the medical student and made modifications to such information, when appropriate. I personally performed the physical exam and medical decision making. Raheem Ye, Mar 29, 2021,16:21 KANIKA GARCIA MED STUDENT Mar 29, 2021 09:34 RAHEEM YE MD Mar 29, 2021 15:45
[2021-03-29 12:04] VITALS: BP 137/76
--- NOTE | 2021-03-29 14:29 | Physical Therapy Evaluation ---
PT Evaluation-General Medical Diagnosis Admission Date Mar 28, 2021 at 21:00 Medical Diagnosis: pneumonia, sepsis and acute respiratory failure with hypoxemia. Onset Date: Mar 28, 2021 Therapy Diagnosis Therapy Diagnosis: Gait Deficit, strength deficit, decline in function Height/Weight Height (Feet): 5 Height (Inches): 2.00 Weight (Pounds): 154 Weight (Ounces): 0.0 Precautions Precautions/Isolations: Fall Prevention, Standard Precautions Referral Physician: Butch Jhaveri MD Reason for Referral: Evaluation/Treatment Medical History Additional Medical History Hysterectomy, Orthopedic, Atrial Fibrillation, Hypertension, Diverticulosis, Irritable Bowel Arthritis, Cataract, Sleep Difficulties Social History Home: Single Level Current Living Status: Significant Other Entry Into Home: Ramp Prior Prior Level of Function SCALE: Activities may be completed with or without assistive devices. 0-Wkgvuhmqzv-amndsrw completes the activity by him/herself with no assistance from a helper. 5-Set-up or Clean-up Assistance-helper sets up or cleans up; patient completes a ctivity. [place] assists only prior to or following the activity. 4-Supervision or Touching Assistance-helper provides verbal cues and/or touching/steadying and/or contact guard assistance as patient completes activity. Assistance may be provided throughout the activity or intermittently. 3-Partial/Moderate Assistance-helper does LESS THAN HALF the effort. [place] lifts, holds or supports trunk or limbs, but provides less than half the effort. 2-Substantial/Maximal Assistance-helper does MORE THAN HALF the effort. [place] lifts or holds trunk or limbs and provides more than half the effort. 8-Qeqckfgsm-qyifqq does ALL the effort. Patient does none of the effort to complete the activity. Or, the assistance of 2 or more helpers is required for the patient to complete the activity. If activity was not attempted, code reason: 7-Patient Refused. 9-Not Applicable-not attempted and the patient did not perform the activity before the current illness, exacerbation or injury. 10-Not Attempted due to Environmental Limitations-(lack of equipment, weather restraints, etc.). 88-Not Attempted due to Medical Conditions or Safety Concerns. Bed Mobility: 4 Transfers (B,C,W/C): 4 Gait: 88 Indoor Mobility (Ambulation): Dependent Stairs: Dependent Prior Devices Use: Manual wheelchair PT Evaluation-Current Subjective Patient lying supine in bed upon PT arrival, agreeable to treatment. Patient sleeping but wakes upon easily. Reports she uses a w/c at home for all mobility. She currently does not ambulate. Typically at home will adjust the w/c to either her bed or toilet, and uses the arms to elevate herself enough to stand pivot transfer from one place to the other. Daughter comes into the room after eval had started and affirms patients verbal information. Objective Patient Orientation: Person, Place, Time, Situation Attachments: Oxygen, Arshad Catheter ROM/Strength ROM Lower Extremities Bilateral knees contractured and limited to ~ 20 degrees from full extension. Strength Lower Extremities Bilaterally grossly 3/5 in all LE planes. Sensory Vision: Wears Glasses Hearing: Hearing Aid/Aides Sensation Right Lower Extremit: Impaired Sensation Left Lower Extremity: Impaired Sensation Lower Extremities Patient unable to identify light touch in bilateral feet. Transfers Roll Left to Right (QC): 3 Sit to Lying (QC): 3 Lying to Sitting/Side of Bed(Q: 3 Sit to Stand (QC): 3 Chair/Gwo-uw-Ykwjz Xfer(QC): 3 Gait Does the Patient Walk?: No and Walking Goal NOT indicated Mode of Locomotion: Wheelchair Anticipated Mode of Locomotion: Wheelchair Wheelchair Training Does the Pt Use a Wheelchair?: Yes Type of Wheelchair: Manual Not Assessed this visit, however w/c at home is patients primary mode of mobility Balance Sitting Static: Good Sitting Dynamic: Fair Standing Static: Poor Standing Dynamic: Poor Assessment/Needs Patient demonstrates all bed mobility and transfer with mod A. Patient demonstrates moderate contractures in bilateral knees with right worse than left. Patient requires mod A for sit to stand and stand pivot to the chair. Patient is able to scoot herself up in the chair however. Patient in chair post treatment with all needs met, nursing notified, call light in reach and daughter in the room. Rehab Potential: Fair PT Short Term Goals Short Term Goals Time Frame: Apr 12, 2021 Roll Left & Right: 4 Sit to lyin Lying to sitting on side of be: 4 Sit to stand: 4 Chair/trj-do-lojob transfer: 4 Toilet transfer: 4 Does pt use a wc or scooter: Yes Wheel 50ft w/2 turns: 5 Wheel 150 feet: 5 Type: Manual PT Snf Goals Snf Goals PT Snf Goals Time Frame: May 03, 2021 Roll Left & Right (QC): 5 Sit to Lying (QC): 5 Lying-Sitting on Side/Bed(QC): 5 Sit to Stand (QC): 5 Chair/Lpe-ax-Tuhts Xfer(QC): 5 Does the Patient Walk: No and Walking Goal NOT indicated Does the Pt use WC or Scooter?: Yes Wheel 50 feet with 2 turns (QC: 6 Type: Manual Wheel 150 feet: 6 Type: Manual PT Plan Problem List Problem List: Activity Tolerance, Functional Strength, Safety, Balance, Gait, Transfer, Bed Mobility, ROM Treatment/Plan Treatment Plan: Continue Plan of Care Treatment Plan: Bed Mobility, Education, Functional Activity Andrea, Functional Strength, Group Therapy, Safety, Therapeutic Exercise, Transfers Treatment Duration: Jun 14, 2021 Frequency: 6 times per week Estimated Hrs Per Day: .25 hour per day Safety Risks/Education Patient Education: Transfer Techniques Teaching Recipient: Patient, Family Teaching Methods: Demonstration, Discussion Response to Teaching: Verbalize Understanding, Reinforcement Needed Time/GCodes Time In: 1405 Time Out: 1425 Total Billed Treatment Time: 20 Total Billed Treatment Visit, JADIEL Delvalle PT Mar 29, 2021 14:29
[2021-03-29 15:39] VITALS: BP 125/80
[2021-03-29] MEDS ORDERED: NON-FORMULARY MEDICATION 1 EA EA (Docusate Sodium (Stool Softener) 100 MG) PO PRN (15:45)
[2021-03-29] MEDS ORDERED: FUROSEMIDE 40 MG (LASIX) TAB PO PRN (15:45)
[2021-03-29] MEDS ORDERED: NON-FORMULARY MEDICATION 1 EA EA (Hyoscyamine Sulfate 0.125 MG) PO PRN (15:45)
[2021-03-29] MEDS ORDERED: FAMOTIDINE 20 MG (PEPCID) TABLET PO PRN (15:45)
[2021-03-29] MEDS ORDERED: LORATADINE (CLARITIN) 10 MG TAB PO PRN (15:45)
[2021-03-29] MEDS ORDERED: HYOSCYAMINE 0.125 MG (LEVSIN) TAB PO PRN (16:00)
[2021-03-29] MEDS ORDERED: DOCUSATE SODIUM 100 MG (COLACE) CAP PO PRN (16:00)
[2021-03-29] MEDS ORDERED: warFARin 5 MG (COUMADIN) TAB PO SCH (18:00)
[2021-03-29] MEDS: LACTOBACILLUS ACIDOPHILUS (PROBIOTIC) CAPSULE PO SCH (18:28)
[2021-03-29 19:47] VITALS: BP 164/82
[2021-03-29] MEDS ORDERED: cefTRIAXone 1,000 MG/SWFI 10 ML IV PUSH IV SCH ×2 (21:00)
[2021-03-29] MEDS ORDERED: LATANOPROST 0.005% (XALATAN) OPHTH SOLN 2.5 ML OU SCH (21:00)
[2021-03-29] MEDS ORDERED: AZITHROMYCIN 500 MG/NS 250 ML IVPB IV SCH ×2 (21:00)
[2021-03-29] MEDS: GABAPENTIN 100 MG (NEURONTIN) CAP PO SCH (21:27)
[2021-03-29] MEDS: TIMOLOL MALEATE 0.5% 5 ML (TIMOPTIC) BTL OU SCH (21:28)
[2021-03-30 00:45] VITALS: BP 162/96
[2021-03-30] MEDS: RT-ALBUTEROL/IPRATROPIUM 3 ML (DUONEB) VIAL INH SCH ×3 (02:50→10:49)
[2021-03-30 04:00] VITALS: BP 158/81
[2021-03-30 07:13] VITALS: BP 152/88
[2021-03-30] MEDS: LACTOBACILLUS ACIDOPHILUS (PROBIOTIC) CAPSULE PO SCH ×2 (08:02→13:46)
[2021-03-30] MEDS: TIMOLOL MALEATE 0.5% 5 ML (TIMOPTIC) BTL OU SCH (08:02)
[2021-03-30] MEDS: dilTIAZem120 MG (CARDIZEM CD) CAP PO SCH (08:02)
[2021-03-30] MEDS ORDERED: OMEPRAZOLE 20 MG (PriLOSEC) CAP NON-FORMULARY PO SCH (09:00)
[2021-03-30] MEDS ORDERED: PANTOPRAZOLE 20 MG TABLET (PROTONIX) PO SCH (09:00)
--- NOTE | 2021-03-30 09:00 | Progress Note - Hospitalist ---
Subjective HPI/CC On Admission Date Seen by Provider: Mar 30, 2021 Time Seen by Provider: 08:30 Pt was admitted from ED to floor for pneumonia, sepsis and acute respiratory failure with hypoxemia. Pt is up in bed eating breakfast with daughter at bedside this morning. Pt reports she started to have cough and sore throat on Friday, but this worsened last noc, which prompted her to come to the ED. Pt states she feels about the same today as yesterday. She did not sleep well d/t issues with her pure wick. Pt reports she does not use oxygen at home. She is wheelchair bound and lives at home with her who is also in the hospital currently. She has home health two days per week, a nurse two days per week and a cleaning lady weekly. Subjective/Events-last exam Pt up in chair this morning feeling better than yesterday. Pt reports SOA when talking for long periods of time, but none at rest. Pt states her cough is persistent and productive, which she would like something for. Pt still feels fatigued, but is overall improving since admission. Pt reports good appetite. Last BM was the night of admission and was solid. Pt admits to cyclic constipation and diarrhea at home, but has not experienced that since admission. Review of Systems General: No Chills; Fatigue HEENT: No Head Aches, No Sore Throat Pulmonary: Dyspnea (when talking), Cough (productive) Cardiovascular: No: Chest Pain, Palpitations Gastrointestinal: No: Nausea, Vomiting, Abdominal Pain, Diarrhea, Constipation Genitourinary: No Dysuria; Frequency Focused Exam Lactate Level 03/28/21 19:34: Lactic Acid Level 1.27 Time of Focused Exam: 20:30 Objective Exam Vital Signs Vital Signs Date Time Temp Pulse Resp B/P (MAP) Pulse Ox O2 Delivery O2 Flow Rate FiO2 03/30/21 12:36 83 03/30/21 11:01 37.0 18 128/79 (95) 96 Room Air 03/29/21 20:00 2.00 03/28/21 22:18 21 Capillary Refill : Less Than 3 Seconds General Appearance: No Apparent Distress, WD/WN HEENT: PERRL/EOMI Neck: Full Range of Motion, Normal Inspection Respiratory: Chest Non Tender, Normal Breath Sounds, No Accessory Muscle Use, No Respiratory Distress, Crackles (bilateral bases) Cardiovascular: Regular Rate, Rhythm, No Murmur, Normal Peripheral Pulses Gastrointestinal: Normal Bowel Sounds, No Organomegaly, No Pulsatile Mass, Non Tender, Soft Extremity: Normal Capillary Refill, Normal Inspection, Pedal Edema (RLE 1+ pitting edema, LLE 2+pitting edema) Neurologic/Psychiatric: Alert, Oriented x3, No Motor/Sensory Deficits, Normal 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 Assessment/Plan Assessment and Plan Assess & Plan/Chief Complaint Community Acquired Pneumonia Sepsis Acute respiratory failure with hypoxemia Afib HTN Diverticulosis with hx of bowel resection Community Acquired Pneumonia CXR Impression: Cardiomegaly with bilateral pulmonary opacities that could be due to edema or multifocal infection. -Currently on Azithromycin and Ceftriaxone Sepsis -Blood cultures revealed no growth -Azithromycin and Ceftriaxone -Lactated ringers for fluid resuscitation. Acute respiratory failure with hypoxemia -Improving, on Room Air at 92% -Duoneb treatments Afib -Currently on Diltiazem and Warfarin HTN -Will continue to monitor Diverticulosis with hx of bowel resection DVT ppx with SCDs KANIKA GARCIA MED STUDENT Mar 30, 2021 09:00
--- NOTE | 2021-03-30 09:28 | Physical Therapy Daily Note ---
PT Daily Note-Current Subjective Patient sitting in chair upon PT arrival, agreeable to treatment. Patient rates pain at 0/10. Reports she has been sitting in the chair for 2 hours and would like to return to bed. Mental Status Patient Orientation: Person, Place, Time, Situation Transfers SCALE: Activities may be completed with or without assistive devices. 0-Huthrtokif-mplqjcb completes the activity by him/herself with no assistance from a helper. 5-Set-up or Clean-up Assistance-helper sets up or cleans up; patient completes activity. [place] assists only prior to or following the activity. 4-Supervision or Touching Assistance-helper provides verbal cues and/or touching/steadying and/or contact guard assistance as patient completes activity. Assistance may be provided throughout the activity or intermittently. 3-Partial/Moderate Assistance-helper does LESS THAN HALF the effort. [place] lifts, holds or supports trunk or limbs, but provides less than half the effort. 2-Substantial/Maximal Assistance-helper does MORE THAN HALF the effort. [place] lifts or holds trunk or limbs and provides more than half the effort. 7-Qgsmrlzqh-vwcjrw does ALL the effort. Patient does none of the effort to complete the activity. Or, the assistance of 2 or more helpers is required for the patient to complete the activity. If activity was not attempted, code reason: 7-Patient Refused. 9-Not Applicable-not attempted and the patient did not perform the activity before the current illness, exacerbation or injury. 10-Not Attempted due to Environmental Limitations-(lack of equipment, weather restraints, etc.). 88-Not Attempted due to Medical Conditions or Safety Concerns. Sit to Stand (QC): 3 Chair/Voo-lo-Nbxqd Xfer(QC): 3 Toilet Transfer (QC): 3 Gait Training Does the Patient Walk?: No and Walking Goal NOT indicated Wheelchair Training Does the Pt Use a Wheelchair?: Yes Wheel 50 ft with 2 turns (QC): 5 Type of Wheelchair: Manual Exercises Seated Therapy Exercises: Ankle pumps, Long arc quads, Hip flexion, Hamstring Curls, Hip abd/add Seated Reps: 20 Assessment Current Status: Fair Progress Patient sitting in chair upon PT arrival, performs LE therapeutic exercises as listed. Patient requires min/mod A for transfer to wheelchair and is able to propel the w/c 100 feet with SBA and verbal cues for progression and obstacles. Patient requires min/mod A for transfer to the BSC. Patient on BSC post treatment with call light in reach and nurse notified. PT Short Term Goals Short Term Goals Time Frame: Apr 12, 2021 Roll Left & Right: 4 Sit to lyin Lying to sitting on side of be: 4 Sit to stand: 4 Chair/xwv-nw-flecn transfer: 4 Toilet transfer: 4 Does pt use a wc or scooter: Yes Wheel 50ft w/2 turns: 5 Wheel 150 feet: 5 Type: Manual PT Mcc Goals Mcc Goals PT Mcc Goals Time Frame: May 03, 2021 Roll Left & Right (QC): 5 Sit to Lying (QC): 5 Lying-Sitting on Side/Bed(QC): 5 Sit to Stand (QC): 5 Chair/Kow-gl-Pwmja Xfer(QC): 5 Does the Patient Walk: No and Walking Goal NOT indicated Does the Pt use WC or Scooter?: Yes Wheel 50 feet with 2 turns (QC: 6 Type: Manual Wheel 150 feet: 6 Type: Manual PT Plan Treatment/Plan Treatment Plan: Continue Plan of Care Treatment Plan: Bed Mobility, Education, Functional Activity Andrea, Functional Strength, Group Therapy, Safety, Therapeutic Exercise, Transfers Treatment Duration: Jun 14, 2021 Frequency: 6 times per week Estimated Hrs Per Day: .25 hour per day Safety Risks/Education Patient Education: Transfer Techniques, W/C Management Teaching Recipient: Patient Teaching Methods: Demonstration, Discussion Response to Teaching: Verbalize Understanding, Return Demonstration Time/GCodes Time In: 906 Time Out: 920 Total Billed Treatment Time: 14 Total Billed Treatment Visit, ex JADIEL JAUREGUI PT Mar 30, 2021 09:28
[2021-03-30] MEDS ORDERED: guaiFENesin (MUCINEX) 600 MG TAB PO PRN (10:00)
--- NOTE | 2021-03-30 10:57 | Discharge Summary ---
Diagnosis/Chief Complaint Date of Admission Mar 28, 2021 at 21:00 Date of Discharge Discharge Date: Mar 30, 2021 Admission Diagnosis Community acquired pneumonia with acute respiratory failure Primary Care Leticia Mathew MD Discharge Diagnosis (1) Acute respiratory failure with hypoxemia Status: Acute Assessment & Plan: Pt on RA with O2 at 92% (2) Pneumonia Status: Acute Assessment & Plan: D/c on PO antibiotics (3) Sepsis Status: Resolved Discharge Summary Discharge Physical Exam Allergies: Coded Allergies: diphenhydramine (Verified Allergy, Unknown, 10/20/20) Vitals & I&Os Vital Signs Date Time Temp Pulse Resp B/P (MAP) Pulse Ox O2 Delivery O2 Flow Rate FiO2 03/30/21 12:36 83 03/30/21 11:01 37.0 18 128/79 (95) 96 Room Air 03/29/21 20:00 2.00 03/28/21 22:18 21 General Appearance: No Apparent Distress, WD/WN HEENT: PERRL/EOMI Respiratory: Chest Non Tender, Normal Breath Sounds, No Accessory Muscle Use, No Respiratory Distress, Crackles Cardiovascular: Regular Rate, Rhythm, No Murmur, Normal Peripheral Pulses Gastrointestinal: Normal Bowel Sounds, No Organomegaly, No Pulsatile Mass, Non Tender, Soft Extremity: Normal Capillary Refill, Normal Inspection, Non Tender, Pedal Edema (RLE 1) Skin: Normal Color, Warm/Dry Neurologic/Psychiatric: Alert, Oriented x3, No Motor/Sensory Deficits, Normal 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 She was titrated off oxygen as SOA improved. Plan to discharge pt on oral antibiotics. Labs (last 24 hrs) Microbiology 03/28/21 Urine Culture - Final, Complete Lactobacillus species 03/28/21 Blood Culture - Preliminary, Resulted No growth Patient resulted labs reviewed. Discharge Home Medications: Active Scripts Active Proventil Hfa (Albuterol Sulfate) 6.7 Gm Hfa.aer.ad 2 Puff INH Q4H Acidophilus-Pectin Capsule (Lactobacillus Acidophilus/Pect) 1 Each Capsule 2 Each PO TIDWM Azithromycin 250 Mg Tablet 250 Mg PO DAILY Cephalexin 500 Mg Tablet 500 Mg PO BID Reported Stool Softener (Docusate Sodium) 100 Mg Tablet 100 Mg PO BID PRN Loratadine 10 Mg Tablet 10 Mg PO HS PRN Klor-Con 10 (Potassium Chloride) 10 Meq Tablet.er 10 Meq PO DAILY PRN TAKES WITH FUROSEMIDE Furosemide 40 Mg Tablet 40 Mg PO DAILY PRN Pramipexole Dihydrochloride (Pramipexole Di-HCl) 0.25 Mg Tablet 0.5 Mg PO 1800 TAKES 2 (0.25MG) TABS Timolol Maleate 0.5% (Timolol Maleate) 5 Ml Drops 1 Drop OU BID Gabapentin 100 Mg Capsule 200 Mg PO HS TAKES 2 (100MG) CAPS Xalatan (Latanoprost) 2.5 Ml Drops 1 Drop OU HS Omeprazole 20 Mg Capsule.dr 20 Mg PO DAILY Warfarin Sodium 5 Mg Tablet 2.5 Mg PO TUE TAKES AT 1200 TAKES OF A 5MG TAB Warfarin Sodium 5 Mg Tablet 5 Mg PO DURAN,MO,WE,TH,FR,SAT TAKES AT 1200 Tramadol HCl 50 Mg Tablet 50 Mg PO HS Famotidine 20 Mg Tablet 20 Mg PO BID PRN Hyoscyamine Sulfate 0.125 Mg Tab.rapdis 0.125 Mg PO Q8- 12H PRN Diltiazem 24Hr ER (Diltiazem HCl) 120 Mg Cap.er.24h 120 Mg PO DAILY Instructions to patient/family Please see electronic discharge instructions given to patient. Problem Qualifiers (1) Pneumonia: Pneumonia type: due to unspecified organism Laterality: bilateral Lung location: unspecified part of lung Qualified Codes: J18.9 - Pneumonia, unspecified organism (2) Sepsis: Sepsis type: sepsis due to unspecified organism Sepsis acute organ dysfunction status: with acute organ dysfunction Severe sepsis acute organ dysfunction type: acute respiratory failure Acute respiratory failure type: with hypoxia Severe sepsis shock status: without septic shock Qualified Codes: A41.9 - Sepsis, unspecified organism; R65.20 - Severe sepsis without septic shock; J96.01 - Acute respiratory failure with hypoxia KANIKA GARCIA MED STUDENT Mar 30, 2021 10:57
[2021-03-30] MEDS ORDERED: CEPH500T PO (10:59)
[2021-03-30] MEDS ORDERED: AZIT250T12 PO (10:59)
[2021-03-30] MEDS ORDERED: LACT1CAP7 PO (10:59)
[2021-03-30] MEDS ORDERED: RT-ALBUINH INH (10:59)
--- NOTE | 2021-03-30 11:00 | Discharge Inst-Simple/Standard ---
Discharge Inst-Standard Discharge Medications New, Converted or Re-Newed RX: Transmitted to Pharmacy Patient Instructions/Follow Up Plan of Care/Instructions/FU: Please continue to take your medications as written. Please follow up with your primary care doctor to follow up this hospital stay. Activity as Tolerated: Yes Discharge Diet: Coumadin Patient Diet Return to The Hospital For: Chest pain, shortness of breath, cough, weakness, fever, confusion, if you feel you are getting worse. RAHEEM KATZ MD Mar 30, 2021 11:00
[2021-03-30 11:01] VITALS: BP 128/79
[2021-03-30 14:58] VITALS: BP 128/79
== END 2021-03-30 14:59 | disposition home or self-care (01) | DRG 871 ==
LOC: EDUNIT# 19:00 → ER 19:03 → 4TH 21:00
PROVIDERS: ADMIT Internal Medicine; ATTEND Internal Medicine
DX: A41.9 Sepsis, unspecified organism (principal); J18.9 Pneumonia, unspecified organism; J96.01 Acute respiratory failure with hypoxia; I48.91 Unspecified atrial fibrillation; Z20.822 Contact with and (suspected) exposure to COVID-19; R65.20 Severe sepsis without septic shock; I10 Essential (primary) hypertension; K58.9 Irritable bowel syndrome, unspecified; M19.90 Unspecified osteoarthritis, unspecified site
CPT/HCPCS: 36415; 51701; 71045; 80048; 80053; 81000; 82805; 83605; 83880; 85025; 85610; 85730; 87040; 87088; 87636; 93005; 94640; 94760

== ENCOUNTER 2021-09-11 19:13 | Inpatient (IN) | payer MEDICARE ==
[~2021-09-11] VITALS: Ht 157.5 cm; Wt 69.9 kg
[~2021-09-11 19:13] MED LIST changes: +AZIT250T12 PO; +CEPH500T PO; +DILT-27 PO; +DOCU100T7 PO; +FAMO20TA5 PO; +FURO40TA4 PO; +GABA-486 PO; +HYOS-6 PO; +LACT1CAP7 PO; +LATA2.5D19 OU; +LORA10TA7 PO; +OMEP20CA18 PO; +POTA-160 PO; +RT-ALBUINH INH; +TIMO5DRO5 OU; +TRAM50TA3 PO; +WARF-48 PO
[2021-09-11] MEDS ORDERED: fentaNYL INJ 100 MCG/2 ML AMP IVP STA ×2 (19:37→20:58)
[2021-09-11] MEDS ORDERED: ONDANSETRON 4 MG/2 ML (SDV) Z0FRAN IVP ONE (19:45)
[2021-09-11] MEDS ORDERED: PANTOPRAZOLE 40 MG (PROTONIX) VIAL IV ONE (19:45)
[2021-09-11 19:46] LABS: BASOPHILS % (AUTO) 0 % (0-10); EOSINOPHILS % (AUTO) 0 % (0-10); HEMATOCRIT 44 % (35-52); HEMOGLOBIN 13.8 g/dL (11.5-16.0); LYMPHOCYTES # (AUTO) 1.1 10^3/uL (1.0-4.0); LYMPHOCYTES % (AUTO) 9 % (12-44); MEAN CORPUSCULAR HEMOGLOBIN 26 pg (25-34); MEAN CORPUSCULAR HGB CONC 31 g/dL (32-36); MEAN CORPUSCULAR VOLUME 83 fL (80-99); MEAN PLATELET VOLUME 9.1 fL (9.0-12.2); MONOCYTES # (AUTO) 0.5 10^3/uL (0.0-1.0); MONOCYTES % (AUTO) 3 % (0-12); NEUTROPHILS # (AUTO) 11.5 10^3/uL (1.8-7.8); NEUTROPHILS % (AUTO) 87 % (42-75); PLATELET COUNT 383 10^3/uL (130-400); WHITE BLOOD COUNT 13.2 10^3/uL (4.3-11.0)
[2021-09-11 19:58] LABS: INR 3.1 (0.8-1.4); PROTHROMBIN TIME PATIENT 32.1 SEC (12.2-14.7)
[2021-09-11 20:05] LABS: ALANINE AMINOTRANSFERASE 24 U/L (0-55); ALKALINE PHOSPHATASE 130 U/L (40-136); AMYLASE 82 U/L (25-125); BILIRUBIN,TOTAL 0.6 MG/DL (0.1-1.0); BUN/CREATININE RATIO 23; CALCIUM 9.9 MG/DL (8.5-10.1); CARBON DIOXIDE 22 MMOL/L (21-32); CHLORIDE 100 MMOL/L (98-107); CREATINE KINASE 38 U/L (29-168); CREATININE SERUM 1.03 MG/DL (0.60-1.30); GFR ESTIMATED 52; GLUCOSE 188 MG/DL (70-105); LIPASE 32 U/L (8-78); MAGNESIUM 2.2 MG/DL (1.6-2.4); POTASSIUM 4.1 MMOL/L (3.6-5.0); SODIUM 138 MMOL/L (135-145); TOTAL PROTEIN 9.4 GM/DL (6.4-8.2)
[2021-09-11 20:13] LABS: BILIRUBIN,URINE NEGATIVE (NEGATIVE); CLARITY,URINE CLEAR; COLOR,URINE YELLOW; GLUCOSE, URINE (UA) NEGATIVE (NEGATIVE); KETONES,URINE TRACE (NEGATIVE); LEUKOCYTE ESTERASE ,URINE NEGATIVE (NEGATIVE); NITRITE,URINE NEGATIVE (NEGATIVE); PH,URINE 5.5 (5-9); PROTEIN,URINE 2+ (NEGATIVE)
[2021-09-11 20:25] LABS: CREATINE KINASE MB 2.8 NG/ML (<6.6); TSH (THYROID ANALYZER) 2.42 UIU/ML (0.35-4.94)
[2021-09-11 20:27] LABS: BASOPHILS % (MANUAL) 1 %; LYMPHOCYTES % (MANUAL) 6 %; MONOCYTES % (MANUAL) 5 %; NEUTROPHILS % (MANUAL) 88 %; RBC MORPH NORMAL
--- NOTE | 2021-09-11 20:50 | Diagnostic Imaging Report ---
PROCEDURE: CT abdomen and pelvis without contrast. TECHNIQUE: Multiple contiguous axial images were obtained through the abdomen and pelvis without the use of intravenous contrast. Auto Exposure Controls were utilized during the CT exam to meet ALARA standards for radiation dose reduction. INDICATION: Abdominal pain and constipation. Vomiting. FINDINGS: The lung bases demonstrate peripheral interstitial changes and fibrosis. There is no evidence of pneumonia or effusion. Cardiomegaly is present. There are mitral and aortic calcifications as well as calcifications within the coronary arteries. There is no pericardial collection. The noncontrast appearance of the liver demonstrate no focal abnormality. The patient is status post cholecystectomy. There is no abnormal biliary dilatation. The pancreas is atrophic. The spleen is normal in size. There is no adrenal mass. The kidneys are nonobstructed. There are left renal cysts. There is no radiodense stone. There is fluid demonstrated within the stomach. There also are fluid-filled loops of small bowel. The colon is decompressed. There is a large degree of stool within the right colon. The most distal small bowel loops including the terminal ileum are normal in caliber. The features therefore suggest at least a partial small bowel obstruction. There is trace free fluid within the pelvis. There is no free air. There is no pneumatosis. There is no abscess. There is no adenopathy. The bladder is decompressed by a Arshad catheter. There are atherosclerotic calcifications within the aorta. There is no acute osseous abnormality evident. There are multilevel degenerative endplate changes and facet arthropathy. IMPRESSION: 1. Diffuse dilation of fluid-filled loops of small bowel with normal caliber of the distal small bowel and terminal ileum. This suggests at least a partial small bowel obstruction with the transition occurring within the low right pelvis. 2. Large degree of stool within the colon suggesting constipation. 3. Trace free fluid within the pelvis without evidence of abscess. 4. No findings of pneumatosis or free air. Dictated by: Dictated on workstation # [id number]
[2021-09-11] MEDS ORDERED: dilTIAZem DRIP PRE-MIX 125 ML IV SCH (21:15)
[2021-09-11 21:17] LABS: BACTERIA,URINE TRACE /HPF; RBC,URINE 0-2 /HPF; WBC,URINE 0-2 /HPF
[2021-09-11 21:18] LABS: AMORPHOUS SEDIMENT,UR RARE AMOR URATES /LPF
--- NOTE | 2021-09-11 21:38 | ED Abdominal Pain ---
General Chief Complaint: Abdominal/GI Problems Stated Complaint: ABD PAIN Nursing Triage Note: TO ED VIA POV AND TO ROOM 5 IN PERSONAL W/C. PT STATES ABD PAIN SINCE THIS AM. STATES LAST BM YESTERDAY. VOMITING TODAY. PT REPEATEDLY ASKS FOR PAIN MEDICINE WHILE TRYING TO ASK TRIAGE QUESTIONS AND ASSESS PT. 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 PT HAS HISTORY OF PARTIAL COLECTOMY FOR DIVERTICULAR DISEASE PT HAS HAD SEVERAL SMALL BOWEL OBSTRUCTIONS/PARTIAL OBSTRUCTIONS--ALL HAVE RESOLVED WITHOUT SURGERY--PT FEELS THIS IS THE SAME PT HAS BEEN DIAGNOSED WITH "IBS"--PT CONSTANTLY SELF MEDICATES WITH LAXATIVES WHEN SHE GETS CONSTIPATED, THEN WILL START TAKING ANTI-DIARRHEAL MEDICATIONS AFTER THE LAXATIVES START WORKING, THEN BACK TO [employer]XAT[employer]ES, FOLLOWED BY ANTI- DIARRHEAL MEDICATIONS.. PT HAS NOT TAKEN ANY OF HER MEDICATIONS TODAY DUE TO PAIN AND NAUSEA PT WITH HISTORY OF ATRIAL FIBRILLATION AND IS MAINTAINED ON COUMADIN. PT DENIES ANY CARDIAC SYMPTOMS AT THIS TIME PCP: DR. HOGAN SPECIAL EDUCATION COORDINATOR: DR. ADAM Allergies and Home Medications Allergies Coded Allergies: diphenhydramine (Verified Allergy, Unknown, 10/20/20) Patient Home Medication List Albuterol Sulfate (Proventil Hfa) 6.7 Gm Hfa.aer.ad, 2 PUFF INH Q4H Prescribed by: RAHEEM KATZ on 03/30/21 1059 Azithromycin (Azithromycin) 250 Mg Tablet, 250 MG PO DAILY Prescribed by: RAHEEM KATZ on 03/30/21 1059 Cephalexin (Cephalexin) 500 Mg Tablet, 500 MG PO BID Prescribed by: RAHEEM KATZ on 03/30/21 1059 Diltiazem HCl (Diltiazem 24Hr ER) 120 Mg Cap.er.24h, 120 MG PO DAILY, (Reported) Entered as Reported by: DOV QUIGLEY on 03/29/21 0843 Docusate Sodium (Stool Softener) 100 Mg Tablet, 100 MG PO BID PRN for CONSTIPATION-1ST LINE, (Reported) Entered as Reported by: DOV QUIGLEY on 03/29/21 08 Famotidine (Famotidine) 20 Mg Tablet, 20 MG PO BID PRN for HEARTBURN, (Reported) Entered as Reported by: DOV QUIGLEY on 03/29/21842 Furosemide (Furosemide) 40 Mg Tablet, 40 MG PO DAILY PRN for FLUID RETENTION, (Reported) Entered as Reported by: DOV QUIGLEY on 03/29/21842 Gabapentin (Gabapentin) 100 Mg Capsule, 200 MG PO HS, (Reported) Entered as Reported by: DOV QUIGLEY on 03/29/21842 Hyoscyamine Sulfate (Hyoscyamine Sulfate) 0.125 Mg Tab.rapdis, 0.125 MG PO Q8- 12H PRN for ABDOMINAL SPASMS, (Reported) Entered as Reported by: DOV QUIGLEY on 03/29/21842 Lactobacillus Acidophilus/Pect (Acidophilus-Pectin Capsule) 1 Each Capsule, 2 EACH PO TIDWM Prescribed by: RAHEEM KATZ on 03/30/21 1059 Latanoprost (Xalatan) 2.5 Ml Drops, 1 DROP OU HS, (Reported) Entered as Reported by: DOV QUIGLEY on 03/29/21842 Loratadine (Loratadine) 10 Mg Tablet, 10 MG PO HS PRN for ALLERGY SYMPTOMS, (Reported) Entered as Reported by: DOV QUIGLEY on 03/29/21842 Omeprazole (Omeprazole) 20 Mg Capsule.dr, 20 MG PO DAILY, (Reported) Entered as Reported by: DOV QUIGLEY on 03/29/21842 Potassium Chloride (Klor-Con 10) 10 Meq Tablet.er, 10 MEQ PO DAILY PRN for FLUID RETENTION, (Reported) Entered as Reported by: DOV QUIGLEY on 03/29/21 08 Pramipexole Di-HCl (Pramipexole Dihydrochloride) 0.25 Mg Tablet, 0.5 MG PO 1800, (Reported) Entered as Reported by: DOV QUIGLEY on 03/29/21 08 Timolol Maleate (Timolol Maleate 0.5%) 5 Ml Drops, 1 DROP OU BID, (Reported) Entered as Reported by: DOV QUIGLEY on 03/29/21 08 Tramadol HCl (Tramadol HCl) 50 Mg Tablet, 50 MG PO HS, (Reported) Entered as Reported by: DOV QUIGLEY on 03/29/21842 Warfarin Sodium (Warfarin Sodium) 5 Mg Tablet, 5 MG PO DURAN,MO,WE,TH,FR,SAT, (Reported) Entered as Reported by: DOV QUIGLEY on 03/29/21 08 Warfarin Sodium (Warfarin Sodium) 5 Mg Tablet, 2.5 MG PO TUE, (Reported) Entered as Reported by: DOV QUIGLEY on 03/29/21842 Review of Systems Review of Systems Constitutional: no symptoms reported Respiratory: No Symptoms Reported; Denies Shortness of Air Cardiovascular: No Symptoms Reported Gastrointestinal: See HPI, Abdominal Pain, Nausea, Vomiting Genitourinary: See HPI Musculoskeletal: no symptoms reported Skin: no symptoms reported Psychiatric/Neurological: Anxiety Endocrine: No Symptoms Reported Hematologic/Lymphatic: No Symptoms Reported Past Hrwjimp-Ljxkqe-Ficrtt Hx Patient Social History Tobacco Use?: No Substance use?: No Alcohol Use?: No Immunizations Up To Date Tetanus Booster (TDap): Unknown First/Initial COVID19 Vaccinat: AUGUST 2020 Second COVID19 Vaccination Pasquale: SEPTEMBER 2020 COVID19 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: [employer]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 PFIZER BOOSTER Seasonal Allergies Seasonal Allergies: Yes Past Medical History Surgery/Hospitalization HX: AFIB PARTIAL COLON REMOVED Surgeries: Yes (COLON RESECTION) Abdominal, Bowel Surgery, Gallbladder, Hysterectomy, Orthopedic Respiratory: No Cardiac: Yes Atrial Fibrillation, High Cholesterol, Hypertension, Valvular Heart Disease Neurological: No Genitourinary: No Gastrointestinal: Yes Obstructive Bowel, Chronic Constipation, Diverticulosis, Chronic Diarrhea, Irrit able Bowel Musculoskeletal: Yes Arthritis Endocrine: No HEENT: Yes Cataract Cancer: No Psychosocial: Yes Sleep Difficulties, Anxiety Integumentary: No Blood Disorders: No Family Medical History PAST SURGICAL HISTORY: -PARTIAL COLECTOMY FOR DIVERTICULAR DISEASE -CHOLECYSTECTOMY -HYSTERECTOMY Physical Exam Vital Signs Vital Signs - First Documented 09/11/21 09/11/21 19:30 19:53 Temp 36.3 Pulse 138 Resp 20 B/P (MAP) 155/124 (134) Pulse Ox 95 O2 Delivery Room Air O2 Flow Rate 2.00 Capillary Refill : Less Than 3 Seconds Height/Weight/BMI Height: 5'2.00" Weight: 154lbs. 0.0oz. 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, no motor/sensory deficits, alert, oriented x 3 Skin: normal color, warm/dry Progress/Results/Core Measures Results/Orders Lab Results Laboratory Tests Test 09/11/21 19:37 09/11/21 19:55 Range/Units White Blood Count 13.2 H 4.3-11.0 10^3/uL Red Blood Count 5.34 H 3.80-5.11 10^6/uL Hemoglobin 13.8 11.5-16.0 g/dL Hematocrit 44 35-52 % Mean Corpuscular Volume 83 80-99 fL Mean Corpuscular Hemoglobin 26 25-34 pg Mean Corpuscular Hemoglobin Concent 31 L 32-36 g/dL Red Cell Distribution Width 16.8 H 10.0-14.5 % Platelet Count 383 130-400 10^3/uL Mean Platelet Volume 9.1 9.0-12.2 fL Immature Granulocyte % (Auto) 1 % Neutrophils (%) (Auto) 87 H 42-75 % Lymphocytes (%) (Auto) 9 L 12-44 % Monocytes (%) (Auto) 3 0-12 % Eosinophils (%) (Auto) 0 0-10 % Basophils (%) (Auto) 0 0-10 % Neutrophils # (Auto) 11.5 H 1.8-7.8 10^3/uL Lymphocytes # (Auto) 1.1 1.0-4.0 10^3/uL Monocytes # (Auto) 0.5 0.0-1.0 10^3/uL Eosinophils # (Auto) 0.0 0.0-0.3 10^3/uL Basophils # (Auto) 0.0 0.0-0.1 10^3/uL Immature Granulocyte # (Auto) 0.1 0.0-0.1 10^3/uL Neutrophils % (Manual) 88 % Lymphocytes % (Manual) 6 % Monocytes % (Manual) 5 % Basophils % (Manual) 1 % Blood Morphology Comment NORMAL Prothrombin Time 32.1 H 12.2-14.7 SEC INR Comment 3.1 H 0.8-1.4 Activated Partial Thromboplast Time 42 H 24-35 SEC Sodium Level 138 135-145 MMOL/L Potassium Level 4.1 3.6-5.0 MMOL/L Chloride Level 100 98-107 MMOL/L Carbon Dioxide Level 22 21-32 MMOL/L Anion Gap 16 H 5-14 MMOL/L Blood Urea Nitrogen 24 H 7-18 MG/DL Creatinine 1.03 0.60-1.30 MG/DL Estimat Glomerular Filtration Rate 52 BUN/Creatinine Ratio 23 Glucose Level 188 H 70-105 MG/DL Calcium Level 9.9 8.5-10.1 MG/DL Corrected Calcium 9.9 8.5-10.1 MG/DL Magnesium Level 2.2 1.6-2.4 MG/DL Total Bilirubin 0.6 0.1-1.0 MG/DL Aspartate Amino Transf (AST/SGOT) 40 H 5-34 U/L Alanine Aminotransferase (ALT/SGPT) 24 0-55 U/L Alkaline Phosphatase 130 40-136 U/L Total Creatine Kinase 38 29-168 U/L Creatine Kinase MB 2.8 <6.6 NG/ML Troponin I < 0.028 <0.028 NG/ML B-Type Natriuretic Peptide 434.8 H <100.0 PG/ML Total Protein 9.4 H 6.4-8.2 GM/DL Albumin 4.0 3.2-4.5 GM/DL Amylase Level 82 25-125 U/L Lipase 32 8-78 U/L TSH Bee Testing 2.42 0.35-4.94 UIU/ML Urine Color YELLOW Urine Clarity CLEAR Urine pH 5.5 5-9 Urine Specific Muse >=1.030 1.016-1.022 Urine Protein 2+ H NEGATIVE Urine Glucose (UA) NEGATIVE NEGATIVE Urine Ketones TRACE H NEGATIVE Urine Nitrite NEGATIVE NEGATIVE Urine Bilirubin NEGATIVE NEGATIVE Urine Urobilinogen 0.2 < = 1.0 MG/DL Urine Leukocyte Esterase NEGATIVE NEGATIVE Urine RBC (Auto) 2+ H NEGATIVE Urine RBC 0-2 /HPF Urine WBC 0-2 /HPF Urine Crystals PRESENT H /LPF Urine Amorphous Sediment RARE DEEP URATES H /LPF Urine Bacteria TRACE /HPF Urine Casts NONE /LPF Urine Mucus SMALL H /LPF Urine Culture Indicated NO My Orders Orders - KULDEEP TEJADA DO Ed Iv/Invasive Line Start (09/11/21 19:31) Monitor-Rhythm Ecg Trace Only (09/11/21 19:31) Amylase (09/11/21 19:31) Cbc With Automated Diff (09/11/21 19:31) Comprehensive Metabolic Panel (09/11/21 19:31) Lipase (09/11/21 19:31) Magnesium (09/11/21 19:31) Ua Culture If Indicated (09/11/21 19:31) Ct Abdomen/Pelvis Wo (09/11/21 19:37) Bnp Sanju (09/11/21 19:37) Creatine Kinase (09/11/21 19:37) Creatine Kinase Mb (09/11/21 19:37) Protime With Inr (09/11/21 19:37) Partial Thromboplastin Time (09/11/21 19:37) Thyroid Analyzer (09/11/21 19:37) Troponin I Sanju (09/11/21 19:37) Ed Iv/Invasive Line Start (09/11/21 19:37) Ondansetron Injection (Zofran Injectio (09/11/21 19:45) Fentanyl Inj (Sublimaze Injection) (09/11/21 19:37) Pantoprazole Injection (Protonix Injecti (09/11/21 19:45) Ekg Tracing (09/11/21 19:40) O2 (09/11/21 19:40) Diltiazem Injection (Cardizem Injection) (09/11/21 19:45) Catheter(Urinary) Insert & Ass 03,15 (09/11/21 19:46) Manual Differential (09/11/21 19:37) Ng Tube Insert & Assessment (09/11/21 20:58) Fentanyl Inj (Sublimaze Injection) (09/11/21 20:58) Medications Given in ED Current Medications Medications Dose Ordered Sig/Renetta Route Start Time Stop Time Status Last Admin Dose Admin Diltiazem HCl 20 mg ONCE ONCE IVP 09/11/21 19:45 09/11/21 19:46 DC 09/11/21 19:51 20 MG Ondansetron HCl 4 mg ONCE ONCE IVP 09/11/21 19:45 09/11/21 19:46 DC 09/11/21 19:51 4 MG Pantoprazole 40 mg ONCE ONCE IV 09/11/21 19:45 09/11/21 19:46 DC 09/11/21 19:51 40 MG Vital Signs/I&O 09/11/21 09/11/21 19:30 19:53 Temp 36.3 Pulse 138 Resp 20 B/P (MAP) 155/124 (134) Pulse Ox 95 O2 Delivery Room Air Nasal Cannula O2 Flow Rate 2.00 Blood Pressure Mean: 134 Progress Progress Note : Progress Note ON ARRIVAL, PT IS WANTING PAIN MEDICATIONS AND STATING SHE IS NOT HAVING AN NG TUBE GIVEN FENTANYL, PROTONIX AND ZOFRAN NAUSEA IMPROVED, NO VOMITING DURING ER STAY PAIN IMPROVED SOMEWHAT WITH FENTANYL, DID HAVE DROP IN O2 SAT WITH FIRST DOSE OF FENTANYL, SO HESITANT TO TRY OTHER PAIN MEDICATIONS SUCH MORPHINE OR DILAUDID FOR PAIN DUE TO THIS. CONTINUED WITH SMALLER DOSES OF FENTANYL, AND NO FURTHER DROPS IN O2 SATS. PT CONTINUES TO WANT PAIN MEDICATION AND CONTINUES TO ADAMANTLY REFUSE NG TUBE, AFTER MULTIPLE ATTEMPTS TO EXPLAIN AND ENCOURAGE PT BY MYSELF AND NURSING STAFF. GIVEN CARDIZEM BOLUS AND PLACED ON CARDIZEM DRIP INITIAL HEART RATE 160-170 --AFIB/RVR HEART RATE DOWN TO 100'S AT TIME OF ADMIT. PT HAD NO CARDIAC OR RESPIRATORY COMPLAINTS DURING ER STAY Diagnostic Imaging Comments CT ABDOMEN/PELVIS--PER RADIOLOGIST REPORT AT 2054 FINDINGS: The lung bases demonstrate peripheral interstitial changes and fibrosis. There is no evidence of pneumonia or effusion. Cardiomegaly is present. There are mitral and aortic calcifications as well as calcifications within the coronary arteries. There is no pericardial collection. The noncontrast appearance of the liver demonstrate no focal abnormality. The patient is status post cholecystectomy. There is no abnormal biliary dilatation. The pancreas is atrophic. The spleen is normal in size. There is no adrenal mass. The kidneys are nonobstructed. There are left renal cysts. There is no radiodense stone. There is fluid demonstrated within the stomach. There also are fluid-filled loops of small bowel. The colon is decompressed. There is a large degree of stool within the right colon. The most distal small bowel loops including the terminal ileum are normal in caliber. The features therefore suggest at least a partial small bowel obstruction. There is trace free fluid within the pelvis. There is no free air. There is no pneumatosis. There is no abscess. There is no adenopathy. The bladder is decompressed by a Arshad catheter. There are atherosclerotic calcifications within the aorta. There is no acute osseous abnormality evident. There are multilevel degenerative endplate changes and facet arthropathy. IMPRESSION: 1. Diffuse dilation of fluid-filled loops of small bowel with normal caliber of the distal small bowel and terminal ileum. This suggests at least a partial small bowel obstruction with the transition occurring within the low right pelvis. 2. Large degree of stool within the colon suggesting constipation. 3. Trace free fluid within the pelvis without evidence of abscess. 4. No findings of pneumatosis or free air. Reviewed: Reviewed by Me Departure Communication (Admissions) 2004--SPOKE WITH DR. DINH, GENERAL SURGEON, WILL CALL HIM BACK WITH CT RESULTS 2099--SPOKE WITH DR. DINH, WILL SEE PT IN CONSULT. ORDERS NOTED 2101--SPOKE WITH DR. CANCHOLA, HOSPITALIST, ACCEPTS PT FOR ADMIT 2103--SPOKE WITH DR. GUADARRAMA, SPECIAL EDUCATION COORDINATOR, ORDERS NOTED. WILL HAVE DR. ADAM CONSULT IN AM. Impression Primary Impression: Small bowel obstruction Additional Impressions: CHRONIC ATRIAL FIBRILLATION WITH RVR HTN (hypertension) Disposition: ADMITTED INPATIENT Condition: Stable Admissions Decision to Admit Reason: Admit from ER (General) Decision to Admit/Date: Sep 11, 2021 Time/Decision to Admit Time: 21:00 Departure-Patient Inst. Referrals: KULDEEP HOGAN MD (PCP/Family) Primary Care Physician KULDEEP TEJADA DO Sep 11, 2021 21:38
[2021-09-11] MEDS ORDERED: ONDANSETRON 4 MG/2 ML (SDV) Z0FRAN IV PRN (23:30)
[2021-09-11] MEDS: dilTIAZem DRIP PRE-MIX 125 ML IV SCH (23:50)
[2021-09-11] MEDS: D5 1/2 NS W/KCL 20 MEQ/L 1,000 ML IV SCH (23:50)
[2021-09-12 05:06] LABS: BASOPHILS % (AUTO) 0 % (0-10); EOSINOPHILS % (AUTO) 0 % (0-10); HEMATOCRIT 37 % (35-52); HEMOGLOBIN 11.2 g/dL (11.5-16.0); LYMPHOCYTES # (AUTO) 0.9 10^3/uL (1.0-4.0); LYMPHOCYTES % (AUTO) 9 % (12-44); MEAN CORPUSCULAR HEMOGLOBIN 26 pg (25-34); MEAN CORPUSCULAR HGB CONC 31 g/dL (32-36); MEAN CORPUSCULAR VOLUME 85 fL (80-99); MEAN PLATELET VOLUME 9.5 fL (9.0-12.2); MONOCYTES # (AUTO) 0.9 10^3/uL (0.0-1.0); MONOCYTES % (AUTO) 8 % (0-12); NEUTROPHILS # (AUTO) 8.6 10^3/uL (1.8-7.8); NEUTROPHILS % (AUTO) 82 % (42-75); PLATELET COUNT 262 10^3/uL (130-400); WHITE BLOOD COUNT 10.4 10^3/uL (4.3-11.0)
[2021-09-12 05:14] LABS: POTASSIUM 4.4 MMOL/L (3.6-5.0)
[2021-09-12 05:15] LABS: CALCIUM 8.4 MG/DL (8.5-10.1)
[2021-09-12 05:16] LABS: TOTAL PROTEIN 7.1 GM/DL (6.4-8.2)
[2021-09-12 05:18] LABS: BILIRUBIN,TOTAL 0.4 MG/DL (0.1-1.0)
[2021-09-12 05:20] LABS: CREATININE SERUM 0.76 MG/DL (0.60-1.30); PHOSPHORUS 3.3 MG/DL (2.3-4.7)
[2021-09-12 05:23] LABS: MAGNESIUM 2.1 MG/DL (1.6-2.4)
[2021-09-12] MEDS: D5 1/2 NS W/KCL 20 MEQ/L 1,000 ML IV SCH ×3 (06:30→16:31)
--- NOTE | 2021-09-12 08:02 | Consultation-Cardiology ---
HPI-Cardiology Cardiology Consultation: Date of Consultation 09/12/21 Time Seen by a Provider: 08:15 Date of Admission 09-11-21 Attending Physician Butch Jhaveri MD Admitting Physician Leticia Mathew MD Consulting Physician Lashell Leon MD HPI: Chief Complaint: A-fib with RVR Ms. Schmitt is an 89 yr old female admitted to ICU 10 abd pain from the ED. She was found to be in a-fib with RVR. She has chronic a-fib. She states she did not take her medications yesterday d/t abd pain, but prior to yesterday she has been compliant. She denies any CP, SOB, palpitations, syncope or near syncope. She has chronic bilat LE swelling which is unchanged in the recent past. She reports her abd pain has improved as of the time of this exam. She is currently on a Cardizem gtt with rate control. Review of Systems-Cardiology Review of Systems Constitutional: No chills, No fever; malaise Eyes: No vision change Ears/Nose/Throat: No epistaxis, No recent hearing loss Respiratory: As described under HPI Cardiovascular: As described under HPI Gastrointestinal: As described under HPI Genitourinary: No dysuria, No hematuria Musculoskeletal: joint pain Skin: No rash on exposed areas, No ulcerations on exposed areas Psychiatric/Neurological: No anxiety, No depression, No seizure, No focal weakness, No syncope Hematologic: No bleeding abnormalities KMW-Eyzqjh-Ftwmhy Hx Patient Social History Alcohol Use?: No Immunizations Up To Date Tetanus Booster (TDap): Unknown Date of Pneumonia Vaccine: Apr 20, 2012 Past Medical History PMH As described under Assessment. Family Medical History Family Medical History: No reported family h/o CAD Allergies and Home Medications Allergies Coded Allergies: diphenhydramine (Verified Allergy, Unknown, 10/20/20) Patient Home Medication List Cetirizine HCl (Cetirizine HCl) 10 Mg Tablet, 10 MG PO DAILY PRN for ALLERGY SYMPTOMS, (Reported) Entered as Reported by: DOV QUIGLEY on 09/12/21 100 Last Action: New Order Diltiazem HCl (Diltiazem ER) 180 Mg Capsule.er, 180 MG PO DAILY, (Reported) Entered as Reported by: DOV QUIGLEY on 09/12/21 100 Last Action: New Order Docusate Sodium (Stool Softener) 100 Mg Tablet, 100 MG PO BID PRN for CONSTIPATION-1ST LINE, (Reported) Entered as Reported by: DOV QUIGLEY on 03/29/21842 Last Action: Last Taken Edited Famotidine (Famotidine) 20 Mg Tablet, 20 MG PO BID PRN for HEARTBURN, (Reported) Entered as Reported by: DOV QUIGLEY on 03/29/21842 Last Action: Last Taken Edited Furosemide (Furosemide) 40 Mg Tablet, 40 MG PO DAILY PRN for FLUID RETENTION, (Reported) Entered as Reported by: DOV QUIGLEY on 03/29/21842 Last Action: Last Taken Edited Gabapentin (Gabapentin) 100 Mg Capsule, 200 MG PO HS, (Reported) Entered as Reported by: DOV QUIGLEY on 03/29/21842 Last Action: Last Taken Edited Hyoscyamine Sulfate (Hyoscyamine Sulfate) 0.125 Mg Tab.rapdis, 0.125 MG PO Q8- 12H PRN for ABDOMINAL SPASMS, (Reported) Entered as Reported by: DOV QUIGLEY on 03/29/21842 Last Action: Last Taken Edited Latanoprost (Xalatan) 2.5 Ml Drops, 1 DROP OU HS, (Reported) Entered as Reported by: DOV QUIGLEY on 03/29/21842 Last Action: Last Taken Edited Omeprazole (Omeprazole) 20 Mg Capsule.dr, 20 MG PO DAILY, (Reported) Entered as Reported by: DOV QUIGLEY on 03/29/21842 Last Action: Last Taken Edited Potassium Chloride (Klor-Con 10) 10 Meq Tablet.er, 10 MEQ PO DAILY PRN for FLUID RETENTION, (Reported) Entered as Reported by: DOV QUIGLEY on 03/29/21842 Last Action: Edited Pramipexole Di-HCl (Pramipexole Dihydrochloride) 0.25 Mg Tablet, 0.5 MG PO 1800, (Reported) Entered as Reported by: ODV QUIGLEY on 03/29/21842 Last Action: Last Taken Edited Timolol Maleate (Timolol Maleate 0.5%) 5 Ml Drops, 1 DROP OU BID, (Reported) Entered as Reported by: DOV QUIGLEY on 03/29/21842 Last Action: Last Taken Edited Tramadol HCl (Tramadol HCl) 50 Mg Tablet, 50 MG PO HS, (Reported) Entered as Reported by: DOV QUIGLEY on 03/29/21842 Last Action: Last Taken Edited Warfarin Sodium (Warfarin Sodium) 5 Mg Tablet, 2.5 MG PO DURAN,MO,TU,TH,FR, (Reported) Entered as Reported by: DOV QUIGLEY on 03/29/21842 Last Action: Last Taken Edited Warfarin Sodium (Warfarin Sodium) 5 Mg Tablet, 5 MG PO WE,SAT, (Reported) Entered as Reported by: DOV QUIGLEY on 03/29/21842 Last Action: Last Taken Edited Discontinued Medications Albuterol Sulfate (Proventil Hfa) 6.7 Gm Hfa.aer.ad, 2 PUFF INH Q4H Discontinued Reason: No Longer Taking Prescribed by: RAHEEM KATZ on 03/30/211058 Last Action: Discontinued Azithromycin (Azithromycin) 250 Mg Tablet, 250 MG PO DAILY Discontinued Reason: No Longer Taking Prescribed by: RAHEEM KATZ on 03/30/211058 Last Action: Discontinued Cephalexin (Cephalexin) 500 Mg Tablet, 500 MG PO BID Discontinued Reason: No Longer Taking Prescribed by: RAHEEM KATZ on 03/30/211058 Last Action: Discontinued Diltiazem HCl (Diltiazem 24Hr ER) 120 Mg Cap.er.24h, 120 MG PO DAILY, (Reported) Discontinued Reason: No Longer Taking Entered as Reported by: DOV QUIGLEY on 03/29/21842 Last Action: Discontinued Lactobacillus Acidophilus/Pect (Acidophilus-Pectin Capsule) 1 Each Capsule, 2 EACH PO TIDWM Discontinued Reason: No Longer Taking Prescribed by: RAHEEM KATZ on 03/30/211058 Last Action: Discontinued Loratadine (Loratadine) 10 Mg Tablet, 10 MG PO HS PRN for ALLERGY SYMPTOMS, (Reported) Discontinued Reason: Prescription changed Entered as Reported by: DOV QUIGLEY on 03/29/21842 Physical Exam-Cardiology Physical Exam Vital Signs/I&O 09/12/21 09/12/21 09/12/21 09/13/21 22:00 23:00 23:59 00:00 Pulse 94 98 97 Resp 16 19 19 B/P (MAP) 111/67 114/67 119/72 Pulse Ox 99 97 98 99 O2 Delivery Nasal Cannula Nasal Cannula Nasal Cannula Nasal Cannula O2 Flow Rate 2.00 2.00 2.00 2.00 09/13/21 09/13/21 09/13/21 09/13/21 00:00 01:00 01:00 02:00 Temp 36.6 Pulse 101 82 84 Resp 17 14 B/P (MAP) 126/80 116/78 Pulse Ox 98 97 O2 Delivery Nasal Cannula Nasal Cannula O2 Flow Rate 2.00 2.00 09/13/21 09/13/21 09/13/21 09/13/21 03:00 04:00 04:00 05:00 Pulse 78 87 86 Resp 23 16 14 B/P (MAP) 137/86 143/72 128/76 Pulse Ox 98 94 99 99 O2 Delivery Nasal Cannula Nasal Cannula Nasal Cannula Nasal Cannula O2 Flow Rate 2.00 2.00 2.00 2.00 09/13/21 09/13/21 09/13/21 09/13/21 06:00 07:00 07:00 07:00 Temp 36.5 Pulse 90 105 92 Resp 19 19 B/P (MAP) 126/94 132/98 Pulse Ox 99 99 O2 Delivery Nasal Cannula Nasal Cannula O2 Flow Rate 2.00 2.00 09/13/21 09/13/21 09/13/21 08:00 08:19 09:00 Pulse 99 93 Resp 15 11 B/P (MAP) 129/96 138/85 Pulse Ox 96 91 O2 Delivery Nasal Cannula Room Air Room Air O2 Flow Rate 2.00 09/13/21 00:00 Intake Total 160 ml Output Total 650 ml Balance -490 ml Capillary Refill : Less Than 3 Seconds Constitutional: AAO x 3, well-developed, well-nourished HEENT: PERRL, hearing is well preserved Neck: carotid pulses are 2 + bilaterally Respiratory: No accessory muscle use, No respiratory distress; chest expansion is symmetric, chest is bilaterally symmetric, lungs clear to auscultation Cardiovascular: irregularly irregular; No JVD; S1 and S2 Gastrointestinal: soft; No guarding Extremities: other (mod bilat LE swelling) Neurologic/Psychiatric: grossly intact (moves all extremities) Skin: No rash on exposed areas, No ulcerations on exposed areas Data Review Labs Laboratory Tests 09/13/21 04:33: White Blood Count 8.1, Red Blood Count 4.00, Hemoglobin 10.3L, Hematocrit 34L, Mean Corpuscular Volume 86, Mean Corpuscular Hemoglobin 26, Mean Corpuscular Hemoglobin Concent 30L, Red Cell Distribution Width 16.6H, Platelet Count 217, Mean Platelet Volume 9.1, Immature Granulocyte % (Auto) 0, Neutrophils (%) (Auto) 72, Lymphocytes (%) (Auto) 19, Monocytes (%) (Auto) 8, Eosinophils (%) (Auto) 2, Basophils (%) (Auto) 0, Neutrophils # (Auto) 5.8, Lymphocytes # (Auto) 1.5, Monocytes # (Auto) 0.6, Eosinophils # (Auto) 0.1, Basophils # (Auto) 0.0, Immature Granulocyte # (Auto) 0.0, Sodium Level 137, Potassium Level 4.3, Chloride Level 107, Carbon Dioxide Level 23, Anion Gap 7, Blood Urea Nitrogen 10, Creatinine 0.71, Estimat Glomerular Filtration Rate 82, BUN/Creatinine Ratio 14, Glucose Level 111H, Calcium Level 8.1L, Corrected Calcium 9.1, Phosphorus Level 2.3, Magnesium Level 1.8, Total Bilirubin 0.4, Aspartate Amino Transf (AST/SGOT) 19, Alanine Aminotransferase (ALT/SGPT) 20, Alkaline Phosphatase 84, Total Protein 6.3L, Albumin 2.7L Microbiology 09/12/21 MRSA Screen - Final, Complete MRSA not isolated Radiology NAME: DENG SCHMITT [facility] REC#: [id number] PT STATUS: REG ER : 1932 PHYSICIAN: LETICIA TEJADA DO ADMIT DATE: 09/11/21/ER Signed Date of Exam:09/11/21 CT ABDOMEN/PELVIS WO PROCEDURE: CT abdomen and pelvis without contrast. TECHNIQUE: Multiple contiguous axial images were obtained through the abdomen and pelvis without the use of intravenous contrast. Auto Exposure Controls were utilized during the CT exam to meet ALARA standards for radiation dose reduction. INDICATION: Abdominal pain and constipation. Vomiting. FINDINGS: The lung bases demonstrate peripheral interstitial changes and fibrosis. There is no evidence of pneumonia or effusion. Cardiomegaly is present. There are mitral and aortic calcifications as well as calcifications within the coronary arteries. There is no pericardial collection. The noncontrast appearance of the liver demonstrate no focal abnormality. The patient is status post cholecystectomy. There is no abnormal biliary dilatation. The pancreas is atrophic. The spleen is normal in size. There is no adrenal mass. The kidneys are nonobstructed. There are left renal cysts. There is no radiodense stone. There is fluid demonstrated within the stomach. There also are fluid-filled loops of small bowel. The colon is decompressed. There is a large degree of stool within the right colon. The most distal small bowel loops including the terminal ileum are normal in caliber. The features therefore suggest at least a partial small bowel obstruction. There is trace free fluid within the pelvis. There is no free air. There is no pneumatosis. There is no abscess. There is no adenopathy. The bladder is decompressed by a Arshad catheter. There are atherosclerotic calcifications within the aorta. There is no acute osseous abnormality evident. There are multilevel degenerative endplate changes and facet arthropathy. IMPRESSION: 1. Diffuse dilation of fluid-filled loops of small bowel with normal caliber of the distal small bowel and terminal ileum. This suggests at least a partial small bowel obstruction with the transition occurring within the low right pelvis. 2. Large degree of stool within the colon suggesting constipation. 3. Trace free fluid within the pelvis without evidence of abscess. 4. No findings of pneumatosis or free air. Dictated by: Dictated on workstation # [id number] Dict: 09/11/212035 Trans: 09/11/212126 [facility] [id number] Interpreted by: MANNY OWUSU MD Electronically signed by: MANNY OWUSU MD 09/11/212126 ECG Impression ECG Initial ECG Impression: Atrial Fibrillation w/RVR A/P-Cardiology Assessment/Admission Diagnosis SBO - management per surgical/medical services SSS and PAF. - currently a-fib with RVR - rate controlled on Cardizem gtt - Holter of 03/12/19: NSR with rates 45-107 and av 66 bpm, multiple brief runs of SVT/AFib - ECGs of 10/20/20 and 11/08/20: A Fib with RVR - OAC with warfarin - managed by our office - MPI of Mar 2019 showed no evidence of any significant myocardial ischemia or infarction. LVEF 73% Mitral Regurg - Echo of 06/01/20: LVEF 50-55%, mod dil of RA and LA, mod to sev MR, AoV sclerosis, mod to sev tricuspid regurg, RVSP 65-70 mmHg Pulm hypertension - (see echo results above) MANJEET - mild on a sleep study in early at [facility] (according to pt and family) Chronic leg swelling - considerably more on the L, likely due to venous insuff. - Chronically on diuretics - L leg venous Doppler on 10/10/20 ([facility]) showed no DVT some superficial thrombphlebitis could not be excluded Lumbago - lumbar spinal stenosis treated with L4-L5, L5-S1 laminectomy, medial facetectomy and foraminotomy by Dr Tapia on 06/09/19 in [place] PVD - TOVA on 10/10/20: mild peripheral vascular disease (TOVA 0.85 on the L and 0.93 on the R) Carotid dz - H/o carotid arterial disease. States last test was with [facility] many years ago Discussion and Recomendations SBO - management per surgical/medical services Chronic a-fib with controlled rate on IV Cardizem Continue IV Cardizem d/t NPO status and resume oral medications when allowed INR 3.1 on admission - warfarin on hold for now - monitor INR closely - resume OAC for stroke prophylaxis when all owed by surgical/medical services Further recs will be based on her hospital course We would like to thank medical services for this consult ABHIJEET DOYLE Sep 12, 2021 08:02
[2021-09-12] MEDS ORDERED: PANTOPRAZOLE 40 MG (PROTONIX) VIAL IV SCH (09:00)
--- NOTE | 2021-09-12 09:24 | Diagnostic Imaging Report ---
INDICATION: DVT. COMPARISON: None TECHNIQUE: Duplex, davies-scale and color-flow imaging of the bilateral lower extremity venous system was performed. FINDINGS: The common femoral vein, superficial femoral vein, profunda femoris, and popliteal veins are normal. These vessels show normal compressibility, color flow, and doppler augmentation. The deep calf veins, although not very well seen, demonstrate no distinct intraluminal thrombus. IMPRESSION: Negative venous Doppler of the bilateral lower extremities. Dictated by: Dictated on workstation # [id number]
--- NOTE | 2021-09-12 09:46 | Consultation - Surgery ---
JOSE MARTIN PONCE MED STUDENT 09/12/21 0946: History of Present Illness History of Present Illness Patient Consulted On(sander/time) 09/12/21 09:41 Date Seen by Provider: Sep 12, 2021 Time Seen by Provider: 08:10 History of Present Illness General surgery consulted for possible small bowel obstruction. Patient is an 89 year old female with pmh significant for afib on coumadin, HLP, HTN, valvular heart disease, diverticulosis, and a history of partial colon resection who presented to the ED yesterday from home via EMS due to a one day history of nausea, vomiting, and abdominal pain. Reports the symptoms began yesterday am. Reports having multiple episodes of nonbloody nonbilious emesis at home. States the pain was crampy and intermittent in nature coming in waves and lasting for several minutes then subsiding rapidly. States she took some mag citrate at home without improvment in symptoms. Nothing makes the abdominal pain better. Currently reports non abdominal pain. Was able to have 2 formed BM's overnight per nursing staff. Patient CT abd/pelvis w/o showed diffuse dilation of fluid filled loops of small bowel, partial bowel obstruction, transition point in the right lower pelvis, and a large stool burden in the colon. No free air and trace free fluid in the pelvis. Plan for small bowel follow through today to further evaluate. Allergies and Home Medications Allergies Coded Allergies: diphenhydramine (Verified Allergy, Unknown, 10/20/20) Patient Home Medication List Home Medication List Reviewed: Yes Cetirizine HCl (Cetirizine HCl) 10 Mg Tablet, 10 MG PO DAILY PRN for ALLERGY SYMPTOMS, (Reported) Entered as Reported by: DOV QUIGLEY on 09/12/21 1009 Last Action: New Order Diltiazem HCl (Diltiazem ER) 180 Mg Capsule.er, 180 MG PO DAILY, (Reported) Entered as Reported by: DOV QUIGLEY on 09/12/21 1009 Last Action: New Order Docusate Sodium (Stool Softener) 100 Mg Tablet, 100 MG PO BID PRN for CONSTIPATION-1ST LINE, (Reported) Entered as Reported by: DOV QUIGLEY on 03/29/21 0843 Last Action: Last Taken Edited Famotidine (Famotidine) 20 Mg Tablet, 20 MG PO BID PRN for HEARTBURN, (Reported) Entered as Reported by: DOV QUIGLEY on 03/29/21842 Last Action: Last Taken Edited Furosemide (Furosemide) 40 Mg Tablet, 40 MG PO DAILY PRN for FLUID RETENTION, (Reported) Entered as Reported by: DOV QUIGLEY on 03/29/21842 Last Action: Last Taken Edited Gabapentin (Gabapentin) 100 Mg Capsule, 200 MG PO HS, (Reported) Entered as Reported by: DOV QUIGLEY on 03/29/21842 Last Action: Last Taken Edited Hyoscyamine Sulfate (Hyoscyamine Sulfate) 0.125 Mg Tab.rapdis, 0.125 MG PO Q8- 12H PRN for ABDOMINAL SPASMS, (Reported) Entered as Reported by: DOV QUIGLEY on 03/29/21842 Last Action: Last Taken Edited Latanoprost (Xalatan) 2.5 Ml Drops, 1 DROP OU HS, (Reported) Entered as Reported by: DOV QUIGLEY on 03/29/21842 Last Action: Last Taken Edited Omeprazole (Omeprazole) 20 Mg Capsule.dr, 20 MG PO DAILY, (Reported) Entered as Reported by: DOV QUIGLEY on 03/29/21842 Last Action: Last Taken Edited Potassium Chloride (Klor-Con 10) 10 Meq Tablet.er, 10 MEQ PO DAILY PRN for FLUID RETENTION, (Reported) Entered as Reported by: DOV QUIGLEY on 03/29/21842 Last Action: Edited Pramipexole Di-HCl (Pramipexole Dihydrochloride) 0.25 Mg Tablet, 0.5 MG PO 1800, (Reported) Entered as Reported by: DOV QUIGLEY on 03/29/21842 Last Action: Last Taken Edited Timolol Maleate (Timolol Maleate 0.5%) 5 Ml Drops, 1 DROP OU BID, (Reported) Entered as Reported by: DOV QUIGLEY on 03/29/21842 Last Action: Last Taken Edited Tramadol HCl (Tramadol HCl) 50 Mg Tablet, 50 MG PO HS, (Reported) Entered as Reported by: DOV QUIGLEY on 03/29/21842 Last Action: Last Taken Edited Warfarin Sodium (Warfarin Sodium) 5 Mg Tablet, 2.5 MG PO DURAN,MO,TU,TH,FR, (Reported) Entered as Reported by: DOV QUIGLEY on 03/29/21842 Last Action: Last Taken Edited Warfarin Sodium (Warfarin Sodium) 5 Mg Tablet, 5 MG PO WE,SAT, (Reported) Entered as Reported by: DOV QUIGLEY on 03/29/21842 Last Action: Last Taken Edited Discontinued Medications Albuterol Sulfate (Proventil Hfa) 6.7 Gm Hfa.aer.ad, 2 PUFF INH Q4H Discontinued Reason: No Longer Taking Prescribed by: RAHEEM KATZ on 03/30/211058 Last Action: Discontinued Azithromycin (Azithromycin) 250 Mg Tablet, 250 MG PO DAILY Discontinued Reason: No Longer Taking Prescribed by: RAHEEM KATZ on 03/30/211058 Last Action: Discontinued Cephalexin (Cephalexin) 500 Mg Tablet, 500 MG PO BID Discontinued Reason: No Longer Taking Prescribed by: RAHEEM KATZ on 03/30/211058 Last Action: Discontinued Diltiazem HCl (Diltiazem 24Hr ER) 120 Mg Cap.er.24h, 120 MG PO DAILY, (Reported) Discontinued Reason: No Longer Taking Entered as Reported by: DOV QUIGLEY on 03/29/21842 Last Action: Discontinued Lactobacillus Acidophilus/Pect (Acidophilus-Pectin Capsule) 1 Each Capsule, 2 EACH PO TIDWM Discontinued Reason: No Longer Taking Prescribed by: RAHEEM KATZ on 03/30/211058 Last Action: Discontinued Loratadine (Loratadine) 10 Mg Tablet, 10 MG PO HS PRN for ALLERGY SYMPTOMS, (Reported) Discontinued Reason: Prescription changed Entered as Reported by: DOV QUIGLEY on 03/29/21842 Past Yyhnigv-Valode-Xvyuiz Hx Patient Social History Alcohol Use?: No Immunizations Up To Date Tetanus Booster (TDap): Unknown Date of Pneumonia Vaccine: Apr 20, 2012 Seasonal Allergies Seasonal Allergies: Yes Surgeries History of Surgeries: Yes (COLON RESECTION) Surgeries: Abdominal, Bowel Surgery, Gallbladder, Hysterectomy, Orthopedic Respiratory History of Respiratory Disorde: No Cardiovascular History of Cardiac Disorders: Yes Cardiac Disorders: Atrial Fibrillation, High Cholesterol, Hypertension, Valvular Heart Disease Neurological History of Neurological Disord: No Genitourinary History of Genitourinary Disor: No Gastrointestinal History of Gastrointestinal Di: Yes Gastrointestinal Disorders: Obstructive Bowel, Chronic Constipation, Diverticulosis, Chronic Diarrhea, Irritable Bowel Musculoskeletal History of Musculoskeletal Dis: Yes Musculoskeletal Disorders: Arthritis Endocrine History of Endocrine Disorders: No HEENT History of HEENT Disorders: Yes HEENT Disorders: Cataract Cancer History of Cancer: No Psychosocial History of Psychiatric Problem: Yes Behavioral Health Disorders: Sleep Difficulties, Anxiety Integumentary History of Skin or Integumenta: No Blood Transfusions History of Blood Disorders: No Review of Systems-General Constitutional: No chills, No diaphoresis, No dizziness, No fever; malaise, weakness EENTM: No blurred vision, No double vision Respiratory: No cough, No dyspnea on exertion, No short of breath Cardiovascular: No chest pain, No edema, No palpitations Gastrointestinal: abdominal pain (diffuse to palpation); No constipation, No diarrhea, No dysphagia; nausea, vomiting Genitourinary: No decreased output, No discharge, No dysuria, No frequency; other (poole ) Musculoskeletal: No back pain, No joint pain Skin: No change in color, No change in hair/nails Psychiatric/Neurological: Denies Anxiety, Denies Depressed All Other Systems Reviewed Negative Unless Noted: Yes Physical Exam-General Problems Physical Exam Vital Signs Vital Signs - First Documented 09/11/21 09/11/21 19:30 19:53 Temp 36.3 Pulse 138 Resp 20 B/P (MAP) 155/124 (134) Pulse Ox 95 O2 Delivery Room Air O2 Flow Rate 2.00 Capillary Refill : Less Than 3 Seconds General Appearance: WD/WN, no apparent distress Eyes: Bilateral Eye Normal Inspection, Bilateral Eye PERRL, Bilateral Eye EOMI HEENT: PERRL/EOMI, pharynx normal Neck: non-tender, full range of motion, normal inspection Respiratory: chest non-tender, lungs clear, no respiratory distress, no accessory muscle use, decreased breath sounds; No crackles, No rhonchi Cardiovascular: normal peripheral pulses, irregularly irregular (afib per bedside monitor) Peripheral Pulses: 2+ Dorsalis Pedis (R), 2+ Left Dors-Pedis (L), 2+ Radial Pulses (R), 2+ Radial Pulses (L) Gastrointestinal: soft, distended (minimal distention); No guarding, No rebound; tenderness Rectal: deferred Back: normal inspection, no vertebral tenderness Extremities: normal range of motion, no pedal edema, no calf tenderness, normal capillary refill, swelling (left lower extremity edematous, reddened in appearance and warm to the touch) Neurologic/Psychiatric: no motor/sensory deficits, alert, normal mood/affect Skin: warm/dry, other (left lower extremity warm and reddend in appearance) Lymphatic: no adenopathy Data Review Labs Laboratory Tests 09/11/21 19:37: White Blood Count 13.2H, Red Blood Count 5.34H, Hemoglobin 13.8, Hematocrit 44, Mean Corpuscular Volume 83, Mean Corpuscular Hemoglobin 26, Mean Corpuscular Hemoglobin Concent 31L, Red Cell Distribution Width 16.8H, Platelet Count 383, Mean Platelet Volume 9.1, Immature Granulocyte % (Auto) 1, Neutrophils (%) (Auto) 87H, Lymphocytes (%) (Auto) 9L, Monocytes (%) (Auto) 3, Eosinophils (%) (Auto) 0, Basophils (%) (Auto) 0, Neutrophils # (Auto) 11.5H, Lymphocytes # (Auto) 1.1, Monocytes # (Auto) 0.5, Eosinophils # (Auto) 0.0, Basophils # (Auto) 0.0, Immature Granulocyte # (Auto) 0.1, Neutrophils % (Manual) 88, Lymphocytes % (Manual) 6, Monocytes % (Manual) 5, Basophils % (Manual) 1, Blood Morphology Comment NORMAL, Prothrombin Time 32.1H, INR Comment 3.1H, Activated Partial Thromboplast Time 42H, Sodium Level 138, Potassium Level 4.1, Chloride Level 100, Carbon Dioxide Level 22, Anion Gap 16H, Blood Urea Nitrogen 24H, Creatinine 1.03, Estimat Glomerular Filtration Rate 52, BUN/Creatinine Ratio 23, Glucose Level 188H, Calcium Level 9.9, Corrected Calcium 9.9, Magnesium Level 2.2, Total Bilirubin 0.6, Aspartate Amino Transf (AST/SGOT) 40H, Alanine Aminotransferase (ALT/SGPT) 24, Alkaline Phosphatase 130, Total Creatine Kinase 38, Creatine Kinase MB 2.8, Troponin I < 0.028, B-Type Natriuretic Peptide 434.8H, Total Protein 9.4H, Albumin 4.0, Amylase Level 82, Lipase 32, TSH [place] Testing 2.42 09/11/21 19:55: Urine Color YELLOW, Urine Clarity CLEAR, Urine pH 5.5, Urine Specific [place] >=1.030, Urine Protein 2+H, Urine Glucose (UA) NEGATIVE, Urine Ketones TRACEH, Urine Nitrite NEGATIVE, Urine Bilirubin NEGATIVE, Urine Urobilinogen 0.2, Urine Leukocyte Esterase NEGATIVE, Urine RBC (Auto) 2+H, Urine RBC 0-2, Urine WBC 0-2, Urine Crystals PRESENTH, Urine Amorphous Sediment RARE DEEP URATESH, Urine Bacteria TRACE, Urine Casts NONE, Urine Mucus SMALLH, Urine Culture Indicated NO 09/12/21 04:32: White Blood Count 10.4, Red Blood Count 4.32, Hemoglobin 11.2L, Hematocrit 37, Mean Corpuscular Volume 85, Mean Corpuscular Hemoglobin 26, Mean Corpuscular Hemoglobin Concent 31L, Red Cell Distribution Width 16.5H, Platelet Count 262, Mean Platelet Volume 9.5, Immature Granulocyte % (Auto) 0, Neutrophils (%) (Auto) 82H, Lymphocytes (%) (Auto) 9L, Monocytes (%) (Auto) 8, Eosinophils (%) (Auto) 0, Basophils (%) (Auto) 0, Neutrophils # (Auto) 8.6H, Lymphocytes # (Auto) 0.9L, Monocytes # (Auto) 0.9, Eosinophils # (Auto) 0.0, Basophils # (Auto) 0.0, Immature Granulocyte # (Auto) 0.0, Sodium Level 139, Potassium Level 4.4, Chloride Level 104, Carbon Dioxide Level 24, Anion Gap 11, Blood Urea Nitrogen 21H, Creatinine 0.76, Estimat Glomerular Filtration Rate 75, BUN/Creatinine Ratio 28, Glucose Level 122H, Calcium Level 8.4L, Corrected Calcium 9.2, Magnesium Level 2.1, Total Bilirubin 0.4, Aspartate Amino Transf (AST/SGOT) 35H, Alanine Aminotransferase (ALT/SGPT) 29, Alkaline Phosphatase 95, Total Protein 7.1, Albumin 3.0L, Phosphorus Level 3.3 Assessment/Plan Assessment/Plan Admission Diagonsis SBO Afib c RVR HTN Assessment/Plan Likely small bowel obstruction Nausea, vomiting, and abdominal pain Afib RVR HTN History of partial colon resection Diverticulosis Anticoagulated CT abdomen/pelvis w/o -diffuse dilation of fluid filled loops small bowel -partial bowel obstruction -transition point right lower pelvis -large stool burden colon -trace free fluid in pelvis and no free air small bowel follow through study today keep npo IVF's continue conservative medical management cards seeing negative venous doppler bilat lower extrem DINH,MIKHAIL D DO 09/12/21 1242: History of Present Illness History of Present Illness History of Present Illness Patient is an 89 year old female began having nausea and vomiting that started yesterday. Patient with abdominal pain that is crampy in nature. No radiation of pain. Abdominal pain improved. Has had some bowel movements overnight. Tried mag citrate without improvement made worse at time making. Bowel movements h elped with pain. Nothing making worse at this time. Currently NPO. Ct scan shows fluid filled loops of small bowel, partial bowel obstruction, transition point in the right lower pelvis, and a large stool burden in the colon. No free air and trace free fluid in the pelvis. Allergies and Home Medications Allergies Coded Allergies: diphenhydramine (Verified Allergy, Unknown, 10/20/20) Patient Home Medication List Home Medication List Reviewed: Yes Cetirizine HCl (Cetirizine HCl) 10 Mg Tablet, 10 MG PO DAILY PRN for ALLERGY SYM PTOMS, (Reported) Entered as Reported by: DOV QUIGLEY on 09/12/21 100 Last Action: New Order Diltiazem HCl (Diltiazem ER) 180 Mg Capsule.er, 180 MG PO DAILY, (Reported) Entered as Reported by: DOV QUIGLEY on 09/12/21 100 Last Action: New Order Docusate Sodium (Stool Softener) 100 Mg Tablet, 100 MG PO BID PRN for CONSTIPATION-1ST LINE, (Reported) Entered as Reported by: DOV QUIGLEY on 03/29/21842 Last Action: Last Taken Edited Famotidine (Famotidine) 20 Mg Tablet, 20 MG PO BID PRN for HEARTBURN, (Reported) Entered as Reported by: DOV QUIGLEY on 03/29/21842 Last Action: Last Taken Edited Furosemide (Furosemide) 40 Mg Tablet, 40 MG PO DAILY PRN for FLUID RETENTION, (Reported) Entered as Reported by: DOV QUIGLEY on 03/29/21842 Last Action: Last Taken Edited Gabapentin (Gabapentin) 100 Mg Capsule, 200 MG PO HS, (Reported) Entered as Reported by: DOV QUIGLEY on 03/29/21842 Last Action: Last Taken Edited Hyoscyamine Sulfate (Hyoscyamine Sulfate) 0.125 Mg Tab.rapdis, 0.125 MG PO Q8- 12H PRN for ABDOMINAL SPASMS, (Reported) Entered as Reported by: DOV QUIGLEY on 03/29/21842 Last Action: Last Taken Edited Latanoprost (Xalatan) 2.5 Ml Drops, 1 DROP OU HS, (Reported) Entered as Reported by: DOV QUIGLEY on 03/29/21842 Last Action: Last Taken Edited Omeprazole (Omeprazole) 20 Mg Capsule.dr, 20 MG PO DAILY, (Reported) Entered as Reported by: DOV QUIGLEY on 03/29/21842 Last Action: Last Taken Edited Potassium Chloride (Klor-Con 10) 10 Meq Tablet.er, 10 MEQ PO DAILY PRN for FLUID RETENTION, (Reported) Entered as Reported by: DOV QUIGLEY on 03/29/21842 Last Action: Edited Pramipexole Di-HCl (Pramipexole Dihydrochloride) 0.25 Mg Tablet, 0.5 MG PO 1800, (Reported) Entered as Reported by: DOV QUIGLEY on 03/29/21842 Last Action: Last Taken Edited Timolol Maleate (Timolol Maleate 0.5%) 5 Ml Drops, 1 DROP OU BID, (Reported) Entered as Reported by: DOV QUIGLEY on 03/29/21842 Last Action: Last Taken Edited Tramadol HCl (Tramadol HCl) 50 Mg Tablet, 50 MG PO HS, (Reported) Entered as Reported by: DOV QUIGLEY on 03/29/21842 Last Action: Last Taken Edited Warfarin Sodium (Warfarin Sodium) 5 Mg Tablet, 2.5 MG PO DURAN,MO,TU,TH,FR, (Reported) Entered as Reported by: DOV QUIGLEY on 03/29/21842 Last Action: Last Taken Edited Warfarin Sodium (Warfarin Sodium) 5 Mg Tablet, 5 MG PO WE,SAT, (Reported) Entered as Reported by: DOV QUIGLEY on 03/29/21842 Last Action: Last Taken Edited Discontinued Medications Albuterol Sulfate (Proventil Hfa) 6.7 Gm Hfa.aer.ad, 2 PUFF INH Q4H Discontinued Reason: No Longer Taking Prescribed by: RAHEEM KATZ on 03/30/21 1050 Last Action: Discontinued Azithromycin (Azithromycin) 250 Mg Tablet, 250 MG PO DAILY Discontinued Reason: No Longer Taking Prescribed by: RAHEEM KATZ on 03/30/211058 Last Action: Discontinued Cephalexin (Cephalexin) 500 Mg Tablet, 500 MG PO BID Discontinued Reason: No Longer Taking Prescribed by: RAHEEM KATZ on 03/30/211058 Last Action: Discontinued Diltiazem HCl (Diltiazem 24Hr ER) 120 Mg Cap.er.24h, 120 MG PO DAILY, (Reported) Discontinued Reason: No Longer Taking Entered as Reported by: DOV QUIGLEY on 03/29/21842 Last Action: Discontinued Lactobacillus Acidophilus/Pect (Acidophilus-Pectin Capsule) 1 Each Capsule, 2 EACH PO TIDWM Discontinued Reason: No Longer Taking Prescribed by: RAHEEM KATZ on 03/30/211058 Last Action: Discontinued Loratadine (Loratadine) 10 Mg Tablet, 10 MG PO HS PRN for ALLERGY SYMPTOMS, (Reported) Discontinued Reason: Prescription changed Entered as Reported by: DOV QUIGLEY on 03/29/21842 Past Oflyfxw-Tcdhnd-Yutuqb Hx Reviewed Nursing Assessment Reviewed/Agree w Nursing PMH: Yes Family Medical History Significant Family History: No Pertinent Family Hx Review of Systems-General Constitutional: No chills, No diaphoresis, No dizziness, No fever; weakness EENTM: No blurred vision, No double vision Respiratory: No cough, No dyspnea on exertion, No short of breath Cardiovascular: No edema, No palpitations Gastrointestinal: abdominal pain (diffuse to palpation); No constipation, No diarrhea, No dysphagia; nausea, vomiting Genitourinary: No dysuria, No frequency Musculoskeletal: No back pain, No joint pain Skin: No change in color, No change in hair/nails Psychiatric/Neurological: Denies Anxiety, Denies Depressed All Other Systems Reviewed Negative Unless Noted: Yes (Negative excepted noted.) Physical Exam-General Problems Physical Exam General Appearance: WD/WN, no apparent distress HEENT: PERRL/EOMI, normal ENT inspection Neck: non-tender, full range of motion Respiratory: decreased breath sounds; No crackles, No rhonchi Cardiovascular: no JVD, irregularly irregular Gastrointestinal: soft, distended (minimal distention), tenderness (minimal ) Rectal: deferred Back: normal inspection, no vertebral tenderness Extremities: normal range of motion, no pedal edema, no calf tenderness Neurologic/Psychiatric: no motor/sensory deficits, alert, normal mood/affect Skin: warm/dry; No jaundice Lymphatic: no adenopathy Assessment/Plan Assessment/Plan Assessment/Plan small bowel obstruction Nausea, vomiting, and abdominal pain Afib RVR HTN History of partial colon resection Diverticulosis Anticoagulated CT abdomen/pelvis w/o -diffuse dilation of fluid filled loops small bowel -partial bowel obstruction -transition point right lower pelvis -large stool burden colon -trace free fluid in pelvis and no free air small bowel follow through study today keep npo IVF's continue conservative medical management cards seeing negative venous doppler bilat lower extremity Supervisory-Addendum Brief Verification & Attestation Participated in pt care: history, MDM, physical Personally performed: exam, history, MDM, supervision of care Care discussed with: Medical Student Procedures: n/a Results interpretation: Verified all documentation Verification and Attestation of Medical Student E/M Service A medical student performed and documented this service in my presence. I reviewed and verified all information documented by the medical student and made modifications to such information, when appropriate. I personally performed the physical exam and medical decision making. Mikhail Dinh, Sep 12, 2021,13:09 JOSE MARTIN PONCE MED STUDENT Sep 12, 2021 09:46 MIKHAIL DINH DO Sep 12, 2021 12:42
[2021-09-12] MEDS ORDERED: DIATRIZOATE MEGLUM/SODIUM 37% 120 ML (GASTROGRAFIN) PO ONE (10:00)
[2021-09-12] MEDS ORDERED: CETI10TA17 PO (10:09)
[2021-09-12] MEDS ORDERED: DILT180C82 PO (10:09)
--- NOTE | 2021-09-12 11:06 | Tele-ICU Consult ---
History of Present Illness History of Present Illness Date Seen by Provider: Sep 12, 2021 Time Seen by Provider: 09:32 Date of Admission Allergies and Home Medications Allergies Coded Allergies: diphenhydramine (Verified Allergy, Unknown, 10/20/20) Home Medications Cetirizine HCl 10 Mg Tablet, 10 MG PO DAILY PRN for ALLERGY SYMPTOMS, (Reported) Diltiazem HCl 180 Mg Capsule.er, 180 MG PO DAILY, (Reported) Docusate Sodium 100 Mg Tablet, 100 MG PO BID PRN for CONSTIPATION-1ST LINE, (Reported) Famotidine 20 Mg Tablet, 20 MG PO BID PRN for HEARTBURN, (Reported) Furosemide 40 Mg Tablet, 40 MG PO DAILY PRN for FLUID RETENTION, (Reported) Gabapentin 100 Mg Capsule, 200 MG PO HS, (Reported) TAKES 2 (100MG) CAPS Hyoscyamine Sulfate 0.125 Mg Tab.rapdis, 0.125 MG PO Q8- 12H PRN for ABDOMINAL SPASMS, (Reported) Latanoprost 2.5 Ml Drops, 1 DROP OU HS, (Reported) Omeprazole 20 Mg Capsule.dr, 20 MG PO DAILY, (Reported) Potassium Chloride 10 Meq Tablet.er, 10 MEQ PO DAILY PRN for FLUID RETENTION, (Reported) ONLY TAKE IF FUROSEMIDE IS BEING TAKEN Pramipexole Di-HCl 0.25 Mg Tablet, 0.5 MG PO 1800, (Reported) TAKES 2 (0.25MG) TABS Timolol Maleate 5 Ml Drops, 1 DROP OU BID, (Reported) Tramadol HCl 50 Mg Tablet, 50 MG PO HS, (Reported) Warfarin Sodium 5 Mg Tablet, 2.5 MG PO DURAN,MO,,,FR, (Reported) TAKES OF A 5MG Warfarin Sodium 5 Mg Tablet, 5 MG PO WE,SAT, (Reported) Past Medical/Social/Family Hx Patient Social History Tobacco Use?: No Substance use?: No Alcohol Use?: No Immunizations Up To Date Influenza Vaccine Up-to-Date: No; Not Current First/Initial COVID19 Vaccinat: AUGUST 2020 Second COVID19 Vaccination Pasquale: SEPTEMBER 2020 Tetanus Booster (TDap): Unknown Date of Pneumonia Vaccine: Apr 20, 2012 Current Status Communicates: Verbally Primary Language: Albanian Preferred Spoken Language: Albanian Is interpretation needed?: No Family Medical History Family Hx: PAST SURGICAL HISTORY: -PARTIAL COLECTOMY FOR DIVERTICULAR DISEASE -CHOLECYSTECTOMY -HYSTERECTOMY Review of Systems Constitutional: see HPI Focused Exam Height, Weight, BMI Height: 5'2.00" Weight: 154lbs. 0.0oz. 69.762632it; 29.71 BMI Method:Estimated Exam Exam Patient acknowledged, consented, and participated in this virtual visit which was conducted using real time audio/video Vital Signs Date Time Temp Pulse Resp B/P (MAP) Pulse Ox O2 Delivery O2 Flow Rate FiO2 09/12/21 10:00 96 17 115/83 98 Nasal Cannula 2.00 09/12/21 09:00 86 14 109/63 98 Nasal Cannula 2.00 09/12/21 08:31 98 Nasal Cannula 2.00 09/12/21 08:00 88 14 122/70 100 Nasal Cannula 2.00 09/12/21 07:54 99 Nasal Cannula 2.00 09/12/21 07:38 37.1 09/12/21 07:00 90 23 104/61 99 Nasal Cannula 2.00 09/12/21 07:00 85 09/12/21 06:00 96 12 113/68 97 Nasal Cannula 2.00 09/12/21 05:15 97 33 121/77 99 Nasal Cannula 2.00 09/12/21 05:00 108 11 96/59 94 Nasal Cannula 2.00 09/12/21 04:00 88 17 124/78 98 Nasal Cannula 2.00 09/12/21 04:00 Nasal Cannula 2.00 09/12/21 03:00 81 21 97/65 98 Nasal Cannula 2.00 09/12/21 02:00 92 22 113/76 98 Nasal Cannula 2.00 09/12/21 01:00 101 09/12/21 01:00 93 23 116/75 97 Nasal Cannula 2.00 09/12/21 00:00 93 18 120/75 94 Nasal Cannula 2.00 09/11/21 23:45 92 20 115/86 93 Nasal Cannula 2.00 09/11/21 23:30 96 20 143/98 97 Nasal Cannula 2.00 09/11/21 23:15 Nasal Cannula 2.00 09/11/21 23:15 85 18 115/84 96 Nasal Cannula 2.00 09/11/21 23:04 36.7 106 18 143/98 98 Nasal Cannula 2.00 09/11/21 23:00 97 09/11/21 22:57 106 25 148/121 91 Nasal Cannula 2.00 09/11/21 22:42 36.3 95 16 141/90 98 Nasal Cannula 2.00 09/11/21 19:53 Nasal Cannula 2.00 09/11/21 19:30 36.3 138 20 155/124 (134) 95 Room Air I & O 09/12/21 07:00 Intake Total 0 ml Output Total 500 ml Balance -500 ml Height & Weight Height: 5'2.00" Weight: 154lbs. 0.0oz. 69.565376bd; 29.71 BMI Method:Estimated General Appearance: No Apparent Distress Capillary Refill: Less Than 3 Seconds Peripheral Pulses: 2+ Dorsalis Pedis (R), 2+ Left Dors-Pedis (L), 2+ Radial Pulses (R), 2+ Radial Pulses (L) Gastrointestinal: soft, distended (minimal distention); No guarding, No rebound ; tenderness Results Lab Laboratory Tests 09/11/21 19:37 09/12/21 04:32 Assessment/Plan Assessment/Plan (Tele-ICU Physician , consultation) Available chart/ vitals / labs / Images reviewed H&P is from ER notes Patient's information available about PMH, Shx, Fhx allergy reviewed in EMR. ROS as per chart and RN report Now in ICU, hemodynamically stable Video assessment done using teleICU camera, rest of exam as per RN Discussed with RN. Consultants: ERNESTINE KESSLER Hospital course: (09/11/21) 89yr old female admitted with partial SBO and afib rvr A/P SBO - management per Sx - refused NG SSS and PAF - currently a-fib with RVR - - NOT on tare controlled gtt -AC : INR 3.1 on admission - warfarin on hold for now - monitor INR closely - Echo of 06/01/20: LVEF 50-55%, mod to sev MR, mod - severe TR Pulm HTN -RVSP 65-70 mmHg MANJEET - ? on cpap Chronic leg swelling due to venous insuff. -bilat LE US 09/12 - no dvt leg venous Doppler on 10/10/20 ([facility]) showed no DVT some superficial thrombphlebitis could not be excluded Lumbago - lumbar spinal stenosis treated with L4-L5, L5-S1 laminectomy, medial facetectomy and foraminotomy by Dr Tapia on 06/09/19 in [place] PVD - TOVA on 10/10/20: mild peripheral vascular disease (TOVA 0.85 on the L and 0.93 on the R) Carotid dz - H/o carotid arterial disease. States last test was with [facility] many years ago Lines : ([facility] Line Necessity Reviewed) Arshad: OG: Nutrition: Analgesia: Anxiety/ delirium VTE Prophylaxis: follow inr Stress Ulcer Prophylaxis: ppi Glycemic Control: Plans in collaboration with bedside consultants and IM MDs. Discussed with RN to reach out if any questions or concerns A total of 31 minutes of critical care time was devoted to this patient today, required to treat and/or prevent further deterioration of critical care condition ( as above ) . JOHNNIE MONET MD Sep 12, 2021 11:06
--- NOTE | 2021-09-12 12:03 | Diagnostic Imaging Report ---
INDICATION: Small bowel obstruction. COMPARISON: Correlation is made with CT study performed one day earlier. TECHNIQUE: Patient was given 120 mL of Gastrografin contrast mixed with 120 mL of water and serial radiographs of the abdomen were obtained. FINDINGS: Back Shoe Worker radiograph does show an improved bowel gas pattern when compared with CT senior media buyer radiograph from from one day earlier. There appears to be less small bowel distention. A 0-minute film shows contrast in stomach with contrast throughout multiple small bowel loops. There is fairly rapid transit of contrast through the small bowel loops with contrast seen within the right colon at 15 minutes. IMPRESSION: No evidence of complete small bowel obstruction. Overall bowel gas pattern has improved when compared with study one day earlier. Dictated by: Dictated on workstation # [id number]
--- NOTE | 2021-09-12 12:35 | Consultation-Cardiology ---
HPI-Cardiology Cardiology Consultation: Date of Consultation 09/12/21 Time Seen by a Provider: 09:00 Date of Admission Attending Physician Butch Jhaveri MD Admitting Physician Leticia Mathew MD Consulting Physician STEVE ADAM MD, MA, FACP, FACC, FSCAI, CCDS HPI: Chief Complaint: Reason for Cardiology consult: A-fib with RVR HPI Ms. Schmitt is an 89 yr old female admitted to ICU 10 abd pain from the ED. She was found to be in a-fib with RVR. She has chronic a-fib. She states she did not take her medications yesterday d/t abd pain, but prior to yesterday she has been compliant. She denies any CP, SOB, palpitations, syncope or near syncope. She has chronic bilat LE swelling which is unchanged in the recent past. She reports her abd pain has improved as of the time of this exam. She is currently on a Cardizem gtt with rate control. Review of Systems-Cardiology Review of Systems Constitutional: No chills, No fever; malaise Eyes: No vision change Ears/Nose/Throat: No epistaxis, No recent hearing loss Respiratory: As described under HPI Cardiovascular: As described under HPI Gastrointestinal: As described under HPI Genitourinary: No dysuria, No hematuria Musculoskeletal: joint pain Skin: No rash on exposed areas, No ulcerations on exposed areas Psychiatric/Neurological: No anxiety, No depression, No seizure, No focal weakness, No syncope Hematologic: No bleeding abnormalities All Other Systems Reviewed Negative Unless Noted: Yes [id number] Hx Patient Social History Alcohol Use?: No Immunizations Up To Date Tetanus Booster (TDap): Unknown Date of Pneumonia Vaccine: Apr 20, 2012 Past Medical History PMH As described under Assessment. Family Medical History Family Medical History: No reported family h/o CAD Allergies and Home Medications Allergies Coded Allergies: diphenhydramine (Verified Allergy, Unknown, 10/20/20) Patient Home Medication List Home Medication List Reviewed: Yes Cetirizine HCl (Cetirizine HCl) 10 Mg Tablet, 10 MG PO DAILY PRN for ALLERGY SYMPTOMS, (Reported) Entered as Reported by: DOV QUIGLEY on 09/12/21 1009 Last Action: New Order Diltiazem HCl (Diltiazem ER) 180 Mg Capsule.er, 180 MG PO DAILY, (Reported) Entered as Reported by: DOV QUIGLEY on 09/12/21 1009 Last Action: New Order Docusate Sodium (Stool Softener) 100 Mg Tablet, 100 MG PO BID PRN for CONSTIPATION-1ST LINE, (Reported) Entered as Reported by: DOV QUIGLEY on 03/29/21842 Last Action: Last Taken Edited Famotidine (Famotidine) 20 Mg Tablet, 20 MG PO BID PRN for HEARTBURN, (Reported) Entered as Reported by: DOV QUIGLEY on 03/29/21842 Last Action: Last Taken Edited Furosemide (Furosemide) 40 Mg Tablet, 40 MG PO DAILY PRN for FLUID RETENTION, (Reported) Entered as Reported by: DOV QUIGLEY on 03/29/21842 Last Action: Last Taken Edited Gabapentin (Gabapentin) 100 Mg Capsule, 200 MG PO HS, (Reported) Entered as Reported by: DOV QUIGLEY on 03/29/21842 Last Action: Last Taken Edited Hyoscyamine Sulfate (Hyoscyamine Sulfate) 0.125 Mg Tab.rapdis, 0.125 MG PO Q8- 12H PRN for ABDOMINAL SPASMS, (Reported) Entered as Reported by: DOV QUIGLEY on 03/29/21842 Last Action: Last Taken Edited Latanoprost (Xalatan) 2.5 Ml Drops, 1 DROP OU HS, (Reported) Entered as Reported by: DOV QUIGLEY on 03/29/21842 Last Action: Last Taken Edited Omeprazole (Omeprazole) 20 Mg Capsule.dr, 20 MG PO DAILY, (Reported) Entered as Reported by: DOV QUIGLEY on 03/29/21842 Last Action: Last Taken Edited Potassium Chloride (Klor-Con 10) 10 Meq Tablet.er, 10 MEQ PO DAILY PRN for FLUID RETENTION, (Reported) Entered as Reported by: DOV QUIGLEY on 03/29/21842 Last Action: Edited Pramipexole Di-HCl (Pramipexole Dihydrochloride) 0.25 Mg Tablet, 0.5 MG PO 1800, (Reported) Entered as Reported by: DOV QUIGLEY on 03/29/21842 Last Action: Last Taken Edited Timolol Maleate (Timolol Maleate 0.5%) 5 Ml Drops, 1 DROP OU BID, (Reported) Entered as Reported by: DOV QUIGLEY on 03/29/21842 Last Action: Last Taken Edited Tramadol HCl (Tramadol HCl) 50 Mg Tablet, 50 MG PO HS, (Reported) Entered as Reported by: DOV QUIGLEY on 03/29/21842 Last Action: Last Taken Edited Warfarin Sodium (Warfarin Sodium) 5 Mg Tablet, 2.5 MG PO DURAN,MO,TU,TH,FR, (Reported) Entered as Reported by: DOV QUIGLEY on 03/29/21842 Last Action: Last Taken Edited Warfarin Sodium (Warfarin Sodium) 5 Mg Tablet, 5 MG PO WE,SAT, (Reported) Entered as Reported by: DOV QUIGLEY on 03/29/21842 Last Action: Last Taken Edited Discontinued Medications Albuterol Sulfate (Proventil Hfa) 6.7 Gm Hfa.aer.ad, 2 PUFF INH Q4H Discontinued Reason: No Longer Taking Prescribed by: RAHEEM KATZ on 03/30/211058 Last Action: Discontinued Azithromycin (Azithromycin) 250 Mg Tablet, 250 MG PO DAILY Discontinued Reason: No Longer Taking Prescribed by: RAHEEM KATZ on 03/30/211058 Last Action: Discontinued Cephalexin (Cephalexin) 500 Mg Tablet, 500 MG PO BID Discontinued Reason: No Longer Taking Prescribed by: RAHEEM KATZ on 03/30/211058 Last Action: Discontinued Diltiazem HCl (Diltiazem 24Hr ER) 120 Mg Cap.er.24h, 120 MG PO DAILY, (Reported) Discontinued Reason: No Longer Taking Entered as Reported by: DOV QUIGLEY on 03/29/21842 Last Action: Discontinued Lactobacillus Acidophilus/Pect (Acidophilus-Pectin Capsule) 1 Each Capsule, 2 EACH PO TIDWM Discontinued Reason: No Longer Taking Prescribed by: RAHEEM KATZ on 03/30/211058 Last Action: Discontinued Loratadine (Loratadine) 10 Mg Tablet, 10 MG PO HS PRN for ALLERGY SYMPTOMS, (Reported) Discontinued Reason: Prescription changed Entered as Reported by: DOV QUIGLEY on 03/29/21842 Physical Exam-Cardiology Physical Exam Vital Signs/I&O 09/12/21 09/12/21 09/12/21 09/12/21 01:00 01:00 02:00 03:00 Pulse 93 101 92 81 Resp 21 B/P (MAP) 116/75 113/76 97/65 Pulse Ox 97 98 98 O2 Delivery Nasal Cannula Nasal Cannula Nasal Cannula O2 Flow Rate 2.00 2.00 2.00 09/12/21 09/12/21 09/12/21 09/12/21 04:00 04:00 05:00 05:15 Pulse 88 108 97 Resp 17 11 33 B/P (MAP) 124/78 96/59 121/77 Pulse Ox 98 94 99 O2 Delivery Nasal Cannula Nasal Cannula Nasal Cannula Nasal Cannula O2 Flow Rate 2.00 2.00 2.00 2.00 09/12/21 09/12/21 09/12/21 09/12/21 06:00 07:00 07:00 07:38 Temp 37.1 Pulse 96 85 90 Resp 12 23 B/P (MAP) 113/68 104/61 Pulse Ox 97 99 O2 Delivery Nasal Cannula Nasal Cannula O2 Flow Rate 2.00 2.00 09/12/21 09/12/21 09/12/21 09/12/21 07:54 08:00 08:31 09:00 Pulse 88 86 Resp 14 14 B/P (MAP) 122/70 109/63 Pulse Ox 99 100 98 98 O2 Delivery Nasal Cannula Nasal Cannula Nasal Cannula Nasal Cannula O2 Flow Rate 2.00 2.00 2.00 2.00 09/12/21 09/12/21 10:00 11:00 Pulse 96 93 Resp 17 10 B/P (MAP) 115/83 116/65 Pulse Ox 98 97 O2 Delivery Nasal Cannula Nasal Cannula O2 Flow Rate 2.00 2.00 Capillary Refill : Less Than 3 Seconds Constitutional: AAO x 3, well-developed, well-nourished HEENT: PERRL, hearing is well preserved Neck: carotid pulses are 2 + bilaterally Respiratory: No accessory muscle use, No respiratory distress; chest expansion is symmetric, chest is bilaterally symmetric, lungs clear to auscultation Cardiovascular: irregularly irregular; No JVD; S1 and S2 Gastrointestinal: soft; No guarding Rectal: deferred Extremities: other (mod bilat LE swelling) Neurologic/Psychiatric: grossly intact (moves all extremities) Skin: No rash on exposed areas, No ulcerations on exposed areas Lymphatic: no adenopathy Data Review Labs Laboratory Tests 09/11/21 19:37: White Blood Count 13.2H, Red Blood Count 5.34H, Hemoglobin 13.8, Hematocrit 44, Mean Corpuscular Volume 83, Mean Corpuscular Hemoglobin 26, Mean Corpuscular Hemoglobin Concent 31L, Red Cell Distribution Width 16.8H, Platelet Count 383, Mean Platelet Volume 9.1, Immature Granulocyte % (Auto) 1, Neutrophils (%) (Auto) 87H, Lymphocytes (%) (Auto) 9L, Monocytes (%) (Auto) 3, Eosinophils (%) (Auto) 0, Basophils (%) (Auto) 0, Neutrophils # (Auto) 11.5H, Lymphocytes # (Auto) 1.1, Monocytes # (Auto) 0.5, Eosinophils # (Auto) 0.0, Basophils # (Auto) 0.0, Immature Granulocyte # (Auto) 0.1, Neutrophils % (Manual) 88, Lymphocytes % (Manual) 6, Monocytes % (Manual) 5, Basophils % (Manual) 1, Blood Morphology Comment NORMAL, Prothrombin Time 32.1H, INR Comment 3.1H, Activated Partial Thromboplast Time 42H, Sodium Level 138, Potassium Level 4.1, Chloride Level 100, Carbon Dioxide Level 22, Anion Gap 16H, Blood Urea Nitrogen 24H, Creatinine 1.03, Estimat Glomerular Filtration Rate 52, BUN/Creatinine Ratio 23, Glucose Level 188H, Calcium Level 9.9, Corrected Calcium 9.9, Magnesium Level 2.2, Total Bilirubin 0.6, Aspartate Amino Transf (AST/SGOT) 40H, Alanine Aminotransferase (ALT/SGPT) 24, Alkaline Phosphatase 130, Total Creatine Kinase 38, Creatine Kinase MB 2.8, Troponin I < 0.028, B-Type Natriuretic Peptide 434.8H, Total Protein 9.4H, Albumin 4.0, Amylase Level 82, Lipase 32, TSH Tama Testing 2.42 09/11/21 19:55: Urine Color YELLOW, Urine Clarity CLEAR, Urine pH 5.5, Urine Specific [place] >=1.030, Urine Protein 2+H, Urine Glucose (UA) NEGATIVE, Urine Ketones TRACEH, Urine Nitrite NEGATIVE, Urine Bilirubin NEGATIVE, Urine Urobilinogen 0.2, Urine Leukocyte Esterase NEGATIVE, Urine RBC (Auto) 2+H, Urine RBC 0-2, Urine WBC 0-2, Urine Crystals PRESENTH, Urine Amorphous Sediment RARE DEEP URATESH, Urine Bacteria TRACE, Urine Casts NONE, Urine Mucus SMALLH, Urine Culture Indicated NO 09/12/21 04:32: White Blood Count 10.4, Red Blood Count 4.32, Hemoglobin 11.2L, Hematocrit 37, Mean Corpuscular Volume 85, Mean Corpuscular Hemoglobin 26, Mean Corpuscular Hemoglobin Concent 31L, Red Cell Distribution Width 16.5H, Platelet Count 262, Mean Platelet Volume 9.5, Immature Granulocyte % (Auto) 0, Neutrophils (%) (Auto) 82H, Lymphocytes (%) (Auto) 9L, Monocytes (%) (Auto) 8, Eosinophils (%) (Auto) 0, Basophils (%) (Auto) 0, Neutrophils # (Auto) 8.6H, Lymphocytes # (Auto) 0.9L, Monocytes # (Auto) 0.9, Eosinophils # (Auto) 0.0, Basophils # ( Auto) 0.0, Immature Granulocyte # (Auto) 0.0, Sodium Level 139, Potassium Level 4.4, Chloride Level 104, Carbon Dioxide Level 24, Anion Gap 11, Blood Urea Nitrogen 21H, Creatinine 0.76, Estimat Glomerular Filtration Rate 75, BUN/Creati nine Ratio 28, Glucose Level 122H, Calcium Level 8.4L, Corrected Calcium 9.2, Magnesium Level 2.1, Total Bilirubin 0.4, Aspartate Amino Transf (AST/SGOT) 35H, Alanine Aminotransferase (ALT/SGPT) 29, Alkaline Phosphatase 95, Total Protein 7.1, Albumin 3.0L, Phosphorus Level 3.3 A/P-Cardiology Assessment/Admission Diagnosis SBO - management per surgical/medical services SSS and PAF. - currently a-fib with RVR - rate controlled on Cardizem gtt - Holter of 03/12/19: NSR with rates 45-107 and av 66 bpm, multiple brief runs of SVT/AFib - ECGs of 10/20/20 and 11/08/20: A Fib with RVR - OAC with warfarin - managed by our office - MPI of Mar 2019 showed no evidence of any significant myocardial ischemia or infarction. LVEF 73% Mitral Regurg - Echo of 06/01/20: LVEF 50-55%, mod dil of RA and LA, mod to sev MR, AoV sclerosis, mod to sev tricuspid regurg, RVSP 65-70 mmHg Pulm hypertension - (see echo results above) MANJEET - mild on a sleep study in early at [place] (according to pt and family) Chronic leg swelling - considerably more on the L, likely due to venous insuff. - Chronically on diuretics - L leg venous Doppler on 10/10/20 ([facility]) showed no DVT some superficial thrombphlebitis could not be excluded Lumbago - lumbar spinal stenosis treated with L4-L5, L5-S1 laminectomy, medial facetectomy and foraminotomy by Dr Tapia on 06/09/19 in [place] PVD - TOVA on 10/10/20: mild peripheral vascular disease (TOVA 0.85 on the L and 0.93 on the R) Carotid dz - H/o carotid arterial disease. States last test was with [facility] many years ago Discussion and Recomendations SBO - management per surgical/medical services Chronic a-fib with controlled rate on IV Cardizem Continue IV Cardizem d/t NPO status and resume oral medications when allowed INR 3.1 on admission - warfarin on hold for now - monitor INR closely - resume OAC for stroke prophylaxis when all owed by surgical/medical services Further recs will be based on her hospital course We would like to thank Medical services for this consult STEVE ADAM MD FACP FACC CCDS Sep 12, 2021 12:35
[2021-09-12] MEDS: dilTIAZem DRIP PRE-MIX 125 ML IV SCH (16:31)
[2021-09-12] MEDS ORDERED: MELATONIN 3 MG TABLET PO SCH (21:00)
[2021-09-12] MEDS ORDERED: warFARin 2.5 MG (COUMADIN) TAB PO ONE (21:30)
--- NOTE | 2021-09-12 21:34 | History & Physical-Hospitalist ---
History of Present Illness HPI/Chief Complaint Monalisa Schmitt is an 89 year old female with PMH HTN, atrial fibrillation on coumadin, who presented with abdominal pain. She has a history of small bowel obstructions and felt similar to this in the past. She reports having nausea and vomiting. She has had a couple bowel movements since arrival. She is feeling thirsty. She denies fevers. She denies shortness of breath. She denies chest pain. Source: patient, family Exam Limitations: no limitations Date Seen 09/12/21 Time Seen by a Provider: 09:05 Attending Physician Jermaine Barros MD PCP Leticia Mathew MD Referring Physician Date of Admission Sep 11, 2021 at 21:05 Home Medications & Allergies Home Medications Reviewed patient Home Medication Reconciliation performed by pharmacy medication reconciliations restorative care technician and/or nursing. Patients Allergies have been reviewed. Allergies Allergies Coded Allergies diphenhydramine (Verified Allergy, Unknown, 10/20/20) Past Xcizbvl-Qdgedr-Trzsbr Hx Patient Social History Tobacco Use?: No Substance use?: No Alcohol Use?: No Immunizations Up To Date First/Initial COVID19 Vaccinat: AUGUST 2020 Second COVID19 Vaccination Pasquale: SEPTEMBER 2020 Tetanus Booster (TDap): Unknown Date of Pneumonia Vaccine: Apr 20, 2012 Seasonal Allergies Seasonal Allergies: Yes Current Status Communicates: Verbally Primary Language: Syrian Preferred Spoken Language: Syrian Is interpretation needed?: No Past Medical History Surgeries: Abdominal, Bowel Surgery, Gallbladder, Hysterectomy, Orthopedic Atrial Fibrillation, High Cholesterol, Hypertension, Valvular Heart Disease Obstructive Bowel, Chronic Constipation, Diverticulosis, Chronic Diarrhea, Irritable Bowel Arthritis Cataract Sleep Difficulties, Anxiety Blood Disorders: No Family Medical History No Pertinent Family Hx PAST SURGICAL HISTORY: -PARTIAL COLECTOMY FOR DIVERTICULAR DISEASE -CHOLECYSTECTOMY -HYSTERECTOMY Review of Systems Constitutional: no symptoms reported EENTM: no symptoms reported Respiratory: no symptoms reported Cardiovascular: no symptoms reported Gastrointestinal: abdominal pain, nausea Genitourinary: no symptoms reported Musculoskeletal: no symptoms reported Skin: no symptoms reported Psychiatric/Neurological: No Symptoms Reported Physical Exam Physical Exam Vital Signs Vital Signs - First Documented 09/11/21 09/11/21 19:30 19:53 Temp 36.3 Pulse 138 Resp 20 B/P (MAP) 155/124 (134) Pulse Ox 95 O2 Delivery Room Air O2 Flow Rate 2.00 Capillary Refill : Less Than 3 Seconds Height, Weight, BMI Height: 5'2.00" Weight: 154lbs. 0.0oz. 69.695492mj; 29.71 BMI Method:Estimated General Appearance: No Apparent Distress, WD/WN HEENT: PERRL/EOMI, Pharynx Normal Neck: Normal Inspection, Supple Respiratory: Lungs Clear, Normal Breath Sounds, No Respiratory Distress Cardiovascular: Regular Rate, Rhythm, No Edema, No Murmur Gastrointestinal: Normal Bowel Sounds, Soft Extremity: Normal Inspection, No Pedal Edema Neurologic/Psychiatric: Alert, No Motor/Sensory Deficits, Normal Mood/Affect Skin: Normal Color, Warm/Dry Results Results/Procedures Labs Laboratory Tests 09/11/21 19:37 09/12/21 04:32 Patient resulted labs reviewed. Imaging: Reviewed Imaging Report Assessment/Plan Admission Diagnosis Small bowel obstruction Admission Status: Inpatient Order (span 2 midnights) Reason for Inpatient Admission: SBO Assessment and Plan SBO Imaging consistent with obstruction Surgery consulted NPO Small bowel follow through IV fluids AFib Continue coumadin HTN Advanced age History of small bowel obstruction History of partial colectomy Diagnosis/Problems Diagnosis/Problems (1) Small bowel obstruction Status: Acute JERMAINE BARROS MD Sep 12, 2021 21:34
[2021-09-12] MEDS: fentaNYL INJ 100 MCG/2 ML AMP IV PRN (22:33)
[2021-09-13] MEDS: fentaNYL INJ 100 MCG/2 ML AMP IV PRN (01:03)
[2021-09-13] MEDS: D5 1/2 NS W/KCL 20 MEQ/L 1,000 ML IV SCH ×2 (02:23→08:03)
[2021-09-13 04:49] LABS: BASOPHILS % (AUTO) 0 % (0-10); EOSINOPHILS # (AUTO) 0.1 10^3/uL (0.0-0.3); EOSINOPHILS % (AUTO) 2 % (0-10); HEMATOCRIT 34 % (35-52); HEMOGLOBIN 10.3 g/dL (11.5-16.0); LYMPHOCYTES # (AUTO) 1.5 10^3/uL (1.0-4.0); LYMPHOCYTES % (AUTO) 19 % (12-44); MEAN CORPUSCULAR HEMOGLOBIN 26 pg (25-34); MEAN CORPUSCULAR HGB CONC 30 g/dL (32-36); MEAN CORPUSCULAR VOLUME 86 fL (80-99); MEAN PLATELET VOLUME 9.1 fL (9.0-12.2); MONOCYTES # (AUTO) 0.6 10^3/uL (0.0-1.0); MONOCYTES % (AUTO) 8 % (0-12); NEUTROPHILS # (AUTO) 5.8 10^3/uL (1.8-7.8); NEUTROPHILS % (AUTO) 72 % (42-75); PLATELET COUNT 217 10^3/uL (130-400); WHITE BLOOD COUNT 8.1 10^3/uL (4.3-11.0)
[2021-09-13 05:00] LABS: ALBUMIN 2.7 GM/DL (3.2-4.5); POTASSIUM 4.3 MMOL/L (3.6-5.0)
[2021-09-13 05:02] LABS: CALCIUM 8.1 MG/DL (8.5-10.1)
[2021-09-13 05:03] LABS: TOTAL PROTEIN 6.3 GM/DL (6.4-8.2)
[2021-09-13 05:04] LABS: BILIRUBIN,TOTAL 0.4 MG/DL (0.1-1.0)
[2021-09-13 05:06] LABS: CREATININE SERUM 0.71 MG/DL (0.60-1.30); PHOSPHORUS 2.3 MG/DL (2.3-4.7)
[2021-09-13 05:09] LABS: MAGNESIUM 1.8 MG/DL (1.6-2.4)
--- NOTE | 2021-09-13 06:17 | Progress Note - Surgery ---
JOSE MARTIN PONCE MED STUDENT 09/13/21 0617: Subjective Date Seen by a Provider: Sep 13, 2021 Time Seen by a Provider: 05:40 Subjective/Events-last exam Patient reports feeling much improved today. Reports is passing flatus and having BM's. Denies nausea, vomiting, abdominal pain, chest pain, SOB, and headaches. Tolerating sips of clears without issue. Reports difficulty getting comfortable due to restless legs. No further questions or concerns at this time. Review of Systems General: No Chills, No Night Sweats, No Fatigue HEENT: No Head Aches, No Visual Changes Pulmonary: No Dyspnea, No Cough Cardiovascular: No: Chest Pain, Palpitations Gastrointestinal: No: Nausea, Vomiting, Abdominal Pain Genitourinary: No Dysuria, No Frequency; Other (poole) Musculoskeletal: No: neck pain, back pain Neurological: No: Weakness, Numbness, Confusion Objective Exam Vital Signs Date Time Temp Pulse Resp B/P (MAP) Pulse Ox O2 Delivery O2 Flow Rate FiO2 09/13/21 05:00 86 14 128/76 99 Nasal Cannula 2.00 09/13/21 04:00 87 16 143/72 99 Nasal Cannula 2.00 09/13/21 04:00 94 Nasal Cannula 2.00 09/13/21 03:00 78 23 137/86 98 Nasal Cannula 2.00 09/13/21 02:00 84 14 116/78 97 Nasal Cannula 2.00 09/13/21 01:00 82 17 126/80 98 Nasal Cannula 2.00 09/13/21 01:00 101 09/13/21 00:00 36.6 09/13/21 00:00 97 19 119/72 99 Nasal Cannula 2.00 09/12/21 23:59 98 Nasal Cannula 2.00 09/12/21 23:00 98 19 114/67 97 Nasal Cannula 2.00 09/12/21 22:00 94 16 111/67 99 Nasal Cannula 2.00 09/12/21 21:00 92 14 127/85 100 Nasal Cannula 2.00 09/12/21 20:00 98 14 115/93 99 Nasal Cannula 2.00 09/12/21 20:00 98 Nasal Cannula 2.00 09/12/21 19:00 37.0 09/12/21 19:00 94 16 123/92 98 Nasal Cannula 2.00 09/12/21 19:00 100 09/12/21 18:00 90 17 122/80 96 Nasal Cannula 2.00 09/12/21 17:00 93 11 132/71 98 Nasal Cannula 2.00 09/12/21 16:20 98 Nasal Cannula 2.00 09/12/21 16:00 103 11 129/79 99 Nasal Cannula 2.00 09/12/21 15:00 86 13 117/86 98 Nasal Cannula 2.00 09/12/21 14:00 93 19 112/61 99 Nasal Cannula 2.00 09/12/21 13:00 96 17 124/74 92 Nasal Cannula 2.00 09/12/21 13:00 94 09/12/21 12:20 98 Nasal Cannula 2.00 09/12/21 12:00 36.7 09/12/21 12:00 93 14 129/85 98 Nasal Cannula 2.00 09/12/21 11:00 93 10 116/65 97 Nasal Cannula 2.00 09/12/21 10:00 96 17 115/83 98 Nasal Cannula 2.00 09/12/21 09:00 86 14 109/63 98 Nasal Cannula 2.00 09/12/21 08:31 98 Nasal Cannula 2.00 09/12/21 08:00 88 14 122/70 100 Nasal Cannula 2.00 09/12/21 07:54 99 Nasal Cannula 2.00 09/12/21 07:38 37.1 09/12/21 07:00 90 23 104/61 99 Nasal Cannula 2.00 09/12/21 07:00 85 I & O 09/13/21 06:59 Intake Total 385 ml Output Total 1125 ml Balance -740 ml Capillary Refill : Less Than 3 Seconds General Appearance: No Apparent Distress, WD/WN HEENT: PERRL/EOMI, Moist Mucous Membranes Neck: Normal Inspection, Non Tender, Supple Respiratory: Lungs Clear, Normal Breath Sounds, No Accessory Muscle Use, No Respiratory Distress Cardiovascular: No Murmur, Normal Peripheral Pulses, Irregularly Irregular (afib per bedside monitor) Peripheral Pulses: 2+ Dorsalis Pedis (R), 2+ Left Dors-Pedis (L), 2+ Radial Pulses (R), 2+ Radial Pulses (L) Gastrointestinal: normal bowel sounds, non tender, soft Extremity: Normal Capillary Refill, Normal Inspection, No Pedal Edema, Swelling (left lower extremity chronically swollen and minimally red in appearance) Neurologic/Psychiatric: Alert, No Motor/Sensory Deficits, Normal Mood/Affect Skin: Warm/Dry, Other (left lower extremity over anteromedial aspect leg red in appearance) Lymphatic: No Adenopathy Results Lab Laboratory Tests 09/13/21 04:33: White Blood Count 8.1, Red Blood Count 4.00, Hemoglobin 10.3L, Hematocrit 34L, Mean Corpuscular Volume 86, Mean Corpuscular Hemoglobin 26, Mean Corpuscular Hemoglobin Concent 30L, Red Cell Distribution Width 16.6H, Platelet Count 217, Mean Platelet Volume 9.1, Immature Granulocyte % (Auto) 0, Neutrophils (%) (Auto) 72, Lymphocytes (%) (Auto) 19, Monocytes (%) (Auto) 8, Eosinophils (%) (Auto) 2, Basophils (%) (Auto) 0, Neutrophils # (Auto) 5.8, Lymphocytes # (Auto) 1.5, Monocytes # (Auto) 0.6, Eosinophils # (Auto) 0.1, Basophils # (Auto) 0.0, Immature Granulocyte # (Auto) 0.0, Sodium Level 137, Potassium Level 4.3, Chloride Level 107, Carbon Dioxide Level 23, Anion Gap 7, Blood Urea Nitrogen 10, Creatinine 0.71, Estimat Glomerular Filtration Rate 82, BUN/Creatinine Ratio 14, Glucose Level 111H, Calcium Level 8.1L, Corrected Calcium 9.1, Phosphorus Level 2.3, Magnesium Level 1.8, Total Bilirubin 0.4, Aspartate Amino Transf (AST/SGOT) 19, Alanine Aminotransferase (ALT/SGPT) 20, Alkaline Phosphatase 84, Total Protein 6.3L, Albumin 2.7L Assessment/Plan Assessment/Plan Assessment/Plan small bowel obstruction-Resolving Nausea, vomiting, and abdominal pain-Resolved Afib RVR Anemia HTN History of partial colon resection Diverticulosis Anticoagulated small bowel follow through study yesterday -no evidence of complete small bowel obstruction -Improved overall gas pattern Clear liquid diet today, advance later today if tolerating well Decrease IVF's if consistently tolerating po clears continue conservative medical management Hgb trending down, likely dilutional cards seeing, still on cardizem gtt coumadin restarted negative venous doppler bilat lower extremity yesterday continue conservative management ARMANDO RUTH DO 09/13/212037: Subjective Subjective/Events-last exam Feeling much better. + bowel function, flatus and bm. Tolerating clears. Denies any abdominal pain. Denies n/v fever sweats chills shortness of breath or chest pain at this time. Objective Exam General Appearance: No Apparent Distress, WD/WN HEENT: PERRL/EOMI, Normal ENT Inspection Neck: Normal Inspection, Non Tender, Supple Respiratory: Chest Non Tender, No Accessory Muscle Use, No Respiratory Distress Cardiovascular: No JVD, Irregularly Irregular Gastrointestinal: normal bowel sounds, non tender, soft Extremity: Normal Capillary Refill, Normal Inspection Neurologic/Psychiatric: Alert, Oriented x3, No Motor/Sensory Deficits, Normal Mood/Affect Skin: Warm/Dry, Other (left lower extremity over anteromedial aspect leg red in appearance minimal) Lymphatic: No Adenopathy Assessment/Plan Assessment/Plan Assessment/Plan small bowel obstruction-Resolving Nausea, vomiting, and abdominal pain-Resolved Afib RVR Anemia HTN History of partial colon resection Diverticulosis Anticoagulated small bowel follow through study yesterday -no evidence of complete small bowel obstruction -Improved overall gas pattern -feeling better Clear liquid diet today, advance later today if tolerating well Decrease IVF's if consistently tolerating po clears continue conservative medical management Hgb trending down, likely dilutional cards seeing, still on cardizem gtt coumadin restarted negative venous doppler bilat lower extremity yesterday continue conservative management Supervisory-Addendum Brief Verification & Attestation Participated in pt care: history, MDM, physical Personally performed: exam, history, MDM, supervision of care Care discussed with: Medical Student Procedures: n/a Results interpretation: Verified all documentation Verification and Attestation of Medical Student E/M Service A medical student performed and documented this service in my presence. I reviewed and verified all information documented by the medical student and made modifications to such information, when appropriate. I personally performed the physical exam and medical decision making. Armando Ruth, Sep 13, 2021,20:37 JOSE MARTIN PONCE MED STUDENT Sep 13, 2021 06:17 ARMANDO RUTH DO Sep 13, 2021 20:38
[2021-09-13] MEDS ORDERED: PANTOPRAZOLE 40 MG (PROTONIX) VIAL IV SCH (09:00)
--- NOTE | 2021-09-13 09:35 | Progress Note - Cardiology ---
Cardiology SOAP Progress Note Subjective: Sitting up in w/c at the bedside States she feels better No c/o abd pain, SOB, CP or palpitations Objective: I&O/Vital Signs 09/12/21 09/12/21 09/12/21 09/13/21 22:00 23:00 23:59 00:00 Pulse 94 98 97 Resp 16 19 19 B/P (MAP) 111/67 114/67 119/72 Pulse Ox 99 97 98 99 O2 Delivery Nasal Cannula Nasal Cannula Nasal Cannula Nasal Cannula O2 Flow Rate 2.00 2.00 2.00 2.00 09/13/21 09/13/21 09/13/21 09/13/21 00:00 01:00 01:00 02:00 Temp 36.6 Pulse 101 82 84 Resp 17 14 B/P (MAP) 126/80 116/78 Pulse Ox 98 97 O2 Delivery Nasal Cannula Nasal Cannula O2 Flow Rate 2.00 2.00 09/13/21 09/13/21 09/13/21 09/13/21 03:00 04:00 04:00 05:00 Pulse 78 87 86 Resp 23 16 14 B/P (MAP) 137/86 143/72 128/76 Pulse Ox 98 94 99 99 O2 Delivery Nasal Cannula Nasal Cannula Nasal Cannula Nasal Cannula O2 Flow Rate 2.00 2.00 2.00 2.00 09/13/21 09/13/21 09/13/21 09/13/21 06:00 07:00 07:00 07:00 Temp 36.5 Pulse 90 105 92 Resp 19 19 B/P (MAP) 126/94 132/98 Pulse Ox 99 99 O2 Delivery Nasal Cannula Nasal Cannula O2 Flow Rate 2.00 2.00 09/13/21 09/13/21 09/13/21 08:00 08:19 09:00 Pulse 99 93 Resp 15 11 B/P (MAP) 129/96 138/85 Pulse Ox 96 91 O2 Delivery Nasal Cannula Room Air Room Air O2 Flow Rate 2.00 09/13/21 00:00 Intake Total 160 ml Output Total 650 ml Balance -490 ml Weight (Pounds): 154 Weight (Ounces): 0.0 Weight (Calculated Kilograms): [id number] Constitutional: AAO x 3, well-developed, well-nourished Respiratory: No accessory muscle use, No respiratory distress; chest expansion is symmetric, chest is bilaterally symmetric, lungs clear to auscultation Cardiovascular: irregularly irregular; No JVD; S1 and S2 Gastrointestional: soft; No guarding Extremities: other (mod bilat LE swelling) Neurologic/Psychiatric: grossly intact (moves all extremities) Skin: No rash on exposed areas, No ulcerations on exposed areas Results/Procedures: Labs Laboratory Tests 09/13/21 04:33: White Blood Count 8.1, Red Blood Count 4.00, Hemoglobin 10.3L, Hematocrit 34L, Mean Corpuscular Volume 86, Mean Corpuscular Hemoglobin 26, Mean Corpuscular Hemoglobin Concent 30L, Red Cell Distribution Width 16.6H, Platelet Count 217, Mean Platelet Volume 9.1, Immature Granulocyte % (Auto) 0, Neutrophils (%) (Auto) 72, Lymphocytes (%) (Auto) 19, Monocytes (%) (Auto) 8, Eosinophils (%) (Auto) 2, Basophils (%) (Auto) 0, Neutrophils # (Auto) 5.8, Lymphocytes # (Auto) 1.5, Monocytes # (Auto) 0.6, Eosinophils # (Auto) 0.1, Basophils # (Auto) 0.0, Immature Granulocyte # (Auto) 0.0, Sodium Level 137, Potassium Level 4.3, Chloride Level 107, Carbon Dioxide Level 23, Anion Gap 7, Blood Urea Nitrogen 10, Creatinine 0.71, Estimat Glomerular Filtration Rate 82, BUN/Creatinine Ratio 14, Glucose Level 111H, Calcium Level 8.1L, Corrected Calcium 9.1, Phosphorus Level 2.3, Magnesium Level 1.8, Total Bilirubin 0.4, Aspartate Amino Transf (AST/SGOT) 19, Alanine Aminotransferase (ALT/SGPT) 20, Alkaline Phosphatase 84, Total Protein 6.3L, Albumin 2.7L Microbiology 09/12/21 MRSA Screen - Final, Complete MRSA not isolated Laboratory Tests 09/11/21 19:37 09/12/21 04:32 09/13/21 04:33 A/P: Assessment: SBO - management per surgical/medical services SSS and PAF. - currently a-fib with RVR - rate controlled on Cardizem gtt - Holter of 03/12/19: NSR with rates 45-107 and av 66 bpm, multiple brief runs of SVT/AFib - ECGs of 10/20/20 and 11/08/20: A Fib with RVR - OAC with warfarin - managed by our office - MPI of Mar 2019 showed no evidence of any significant myocardial ischemia or infarction. LVEF 73% Mitral Regurg - Echo of 06/01/20: LVEF 50-55%, mod dil of RA and LA, mod to sev MR, AoV sclerosis, mod to sev tricuspid regurg, RVSP 65-70 mmHg Pulm hypertension - (see echo results above) MANJEET - mild on a sleep study in early at [place] (according to pt and family) Chronic leg swelling - considerably more on the L, likely due to venous insuff. - Chronically on diuretics - L leg venous Doppler on 10/10/20 ([facility]) showed no DVT some superficial thrombphlebitis could not be excluded Lumbago - lumbar spinal stenosis treated with L4-L5, L5-S1 laminectomy, medial facetect sharri and foraminotomy by Dr Tapia on 06/09/19 in [place] - TOVA on 10/10/20: mild peripheral vascular disease (TOVA 0.85 on the L and 0.93 on the R) Carotid dz - H/o carotid arterial disease. States last test was with [facility] many years ago Plan: SBO - management per surgical/medical services Chronic a-fib with controlled rate - change IV Cardizem over to oral home dose Warfarin has been resumed - monitor INR closely Monitor lab Replace electrolytes as indicated ABHIJEET DOYLE Sep 13, 2021 09:35
--- NOTE | 2021-09-13 09:47 | Physical Therapy Evaluation ---
PT Evaluation-General Medical Diagnosis Admission Date Sep 11, 2021 at 21:05 Medical Diagnosis: Small Bowel Obstruction Onset Date: Sep 11, 2021 Therapy Diagnosis Therapy Diagnosis: weakness, debility Height/Weight Height (Feet): 5 Height (Inches): 2.00 Weight (Pounds): 154 Weight (Ounces): 0.0 Precautions Precautions/Isolations: Fall Prevention, Standard Precautions Referral Physician: Praful Reason for Referral: Evaluation/Treatment Medical History Pertinent Medical History: Atrial Fib, HTN Social History Home: Single Level Current Living Status: Spouse Entry Into Home: Ramp Prior Prior Level of Function SCALE: Activities may be completed with or without assistive devices. 7-Eytaizpgmw-gjdazhf completes the activity by him/herself with no assistance from a helper. 5-Set-up or Clean-up Assistance-helper sets up or cleans up; patient completes activity. [place] assists only prior to or following the activity. 4-Supervision or Touching Assistance-helper provides verbal cues and/or touching/steadying and/or contact guard assistance as patient completes activity. Assistance may be provided throughout the activity or intermittently. 3-Partial/Moderate Assistance-helper does LESS THAN HALF the effort. [place] lifts, holds or supports trunk or limbs, but provides less than half the effort. 2-Substantial/Maximal Assistance-helper does MORE THAN HALF the effort. [place] lifts or holds trunk or limbs and provides more than half the effort. 0-Nauncimjh-gbvkfo does ALL the effort. Patient does none of the effort to complete the activity. Or, the assistance of 2 or more helpers is required for the patient to complete the activity. If activity was not attempted, code reason: 7-Patient Refused. 9-Not Applicable-not attempted and the patient did not perform the activity before the current illness, exacerbation or injury. 10-Not Attempted due to Environmental Limitations-(lack of equipment, weather restraints, etc.). 88-Not Attempted due to Medical Conditions or Safety Concerns. Bed Mobility: 6 Transfers (B,C,W/C): 6 Wheelchair Mobility: 6 Prior Devices Use: Manual wheelchair PT Evaluation-Current Subjective Patient presented laying in bed and agreed to move to her wheel chair with the rapy Objective Patient Orientation: Person, Place, Situation Attachments: Oxygen, Arhsad Catheter, IV ROM/Strength ROM Lower Extremities Hip and knee flexion contracture limiting full ROM Strength Lower Extremities 3+/5 strength bilaterally grossly Integumentary/Posture Bowel Incontinence: Yes Bladder Incontinence: Arshad Cath Sensory Vision: Functional Hearing: Hearing Aid/Aides Transfers Lying to Sitting/Side of Bed(Q: 4 Sit to Stand (QC): 1 Chair/Wxl-pq-Oplis Xfer(QC): 4 Patient required SBA for transfer from bed to her w/c and for bed mobility but was dependent for sit to stand transfer Gait Does the Patient Walk?: No and Walking Goal NOT indicated Mode of Locomotion: Wheelchair Anticipated Mode of Locomotion: Wheelchair Wheelchair Training Does the Pt Use a Wheelchair?: Yes Balance Sitting Static: Normal Sitting Dynamic: Normal Assessment/Needs Patient was able to move from supine to EOB and transfer to her w/c with SBA. Patient required dependent transfer for her to perform sit to stand to put a commode under her then to remove the commode and put her back in her w/c. Patient is unable to help with the transfer but she hasn't stood up in a long time. Patient performs all transfers at home by scooting off of the bed and into her w/c. Rehab Potential: Fair PT [place] Goals Snf Goals PT [place] Goals Time Frame: Sep 22, 2021 Roll Left & Right (QC): 6 Sit to Lying (QC): 6 Lying-Sitting on Side/Bed(QC): 6 Chair/Bbv-tu-Kpxvs Xfer(QC): 6 Toilet Transfer (QC): 6 Does the Patient Walk: No and Walking Goal NOT indicated Does the Pt use WC or Scooter?: Yes PT Plan Problem List Problem List: Activity Tolerance, Functional Strength, Safety, Balance, Gait, Transfer, Bed Mobility, ROM Treatment/Plan Treatment Plan: Continue Plan of Care Treatment Plan: Bed Mobility, Education, Functional Activity Andrea, Functional Strength, Gait, Safety, Therapeutic Exercise, Transfers Treatment Duration: Sep 22, 2021 Frequency: 6 times per week Estimated Hrs Per Day: .25 hour per day Time/GCodes Time In: 745 Time Out: 806 Total Billed Treatment Time: 21 Total Billed Treatment 1 Visit EVMod 21 min MAGGIE LOREDO PT Sep 13, 2021 09:47
--- NOTE | 2021-09-13 10:37 | Tele-ICU Progress Note ---
Subjective Date Seen by a Provider: Sep 13, 2021 Time Seen by a Provider: 10:37 Sepsis Event Evaluation Height, Weight, BMI Height: 5'2.00" Weight: 154lbs. 0.0oz. [id number]; 29.71 BMI Method:Estimated Exam Exam Patient acknowledged, consented, and participated in this virtual visit which was conducted using real time audio/video Vital Signs Date Time Temp Pulse Resp B/P (MAP) Pulse Ox O2 Delivery O2 Flow Rate FiO2 09/13/21 10:00 105 21 147/91 91 Room Air 09/13/21 09:00 93 11 138/85 91 Room Air 09/13/21 08:19 Room Air 09/13/21 08:00 99 15 129/96 96 Nasal Cannula 2.00 09/13/21 07:00 36.5 09/13/21 07:00 92 19 132/98 99 Nasal Cannula 2.00 09/13/21 07:00 105 09/13/21 06:00 90 19 126/94 99 Nasal Cannula 2.00 09/13/21 05:00 86 14 128/76 99 Nasal Cannula 2.00 09/13/21 04:00 87 16 143/72 99 Nasal Cannula 2.00 09/13/21 04:00 94 Nasal Cannula 2.00 09/13/21 03:00 78 23 137/86 98 Nasal Cannula 2.00 09/13/21 02:00 84 14 116/78 97 Nasal Cannula 2.00 09/13/21 01:00 82 17 126/80 98 Nasal Cannula 2.00 09/13/21 01:00 101 09/13/21 00:00 36.6 09/13/21 00:00 97 19 119/72 99 Nasal Cannula 2.00 09/12/21 23:59 98 Nasal Cannula 2.00 09/12/21 23:00 98 19 114/67 97 Nasal Cannula 2.00 09/12/21 22:00 94 16 111/67 99 Nasal Cannula 2.00 09/12/21 21:00 92 14 127/85 100 Nasal Cannula 2.00 09/12/21 20:00 98 14 115/93 99 Nasal Cannula 2.00 09/12/21 20:00 98 Nasal Cannula 2.00 09/12/21 19:00 37.0 09/12/21 19:00 94 16 123/92 98 Nasal Cannula 2.00 09/12/21 19:00 100 09/12/21 18:00 90 17 122/80 96 Nasal Cannula 2.00 09/12/21 17:00 93 11 132/71 98 Nasal Cannula 2.00 09/12/21 16:20 98 Nasal Cannula 2.00 09/12/21 16:00 103 11 129/79 99 Nasal Cannula 2.00 09/12/21 15:00 86 13 117/86 98 Nasal Cannula 2.00 09/12/21 14:00 93 19 112/61 99 Nasal Cannula 2.00 09/12/21 13:00 96 17 124/74 92 Nasal Cannula 2.00 09/12/21 13:00 94 09/12/21 12:20 98 Nasal Cannula 2.00 09/12/21 12:00 36.7 09/12/21 12:00 93 14 129/85 98 Nasal Cannula 2.00 09/12/21 11:00 93 10 116/65 97 Nasal Cannula 2.00 I & O 09/13/21 07:00 Intake Total 385 ml Output Total 1125 ml Balance -740 ml Height & Weight Height: 5'2.00" Weight: 154lbs. 0.0oz. [id number]; 29.71 BMI Method:Estimated General Appearance: No Apparent Distress, WD/WN HEENT: PERRL/EOMI, Moist Mucous Membranes Neck: Normal Inspection, Non Tender, Supple Respiratory: Lungs Clear, Normal Breath Sounds, No Accessory Muscle Use, No Respiratory Distress Cardiovascular: No Murmur, Normal Peripheral Pulses, Irregularly Irregular (afib per bedside monitor) Capillary Refill: Less Than 3 Seconds Peripheral Pulses: 2+ Dorsalis Pedis (R), 2+ Left Dors-Pedis (L), 2+ Radial Pulses (R), 2+ Radial Pulses (L) Gastrointestinal: normal bowel sounds, non tender, soft Extremity: Normal Capillary Refill, Normal Inspection, No Pedal Edema, Swelling (left lower extremity chronically swollen and minimally red in appearance) Neurologic/Psychiatric: Alert, No Motor/Sensory Deficits, Normal Mood/Affect Skin: Warm/Dry, Other (left lower extremity over anteromedial aspect leg red in appearance) Lymphatic: No Adenopathy Results Lab Laboratory Tests 09/11/21 19:37 09/12/21 04:32 09/13/21 04:33 Assessment/Plan Assessment/Plan (Tele-ICU Physician , Progress Note ) Available chart/ vitals / labs / Images reviewed Video assessment done using teleICU camera, rest of exam as per RN Discussed with RN , EXAM PER RN Events overnight : Afebrile FiO2 - I/O = Drips: Pressors: , hemodynamically stable Consultants: ERNESTINE KESSLER Hospital course: (09/11/21) 89yr old female admitted with partial SBO and afib rvr A/P SBO - management per Sx - refused NG - improvving ( xr 09/12- No evidence of complete small bowel obstruction. SSS and PAF - as per cards -AC : INR 3.1 on admission - warfarin on hold for now - monitor INR closely - Echo of 06/01/20: LVEF 50-55%, mod to sev MR, mod - severe TR Pulm HTN -RVSP 65-70 mmHg MANJEET - ? on cpap Chronic leg swelling due to venous insuff. -bilat LE US 09/12 - no dvt Lines : periph (Central Line Necessity Reviewed) Arshad: + OG: Nutrition: po Analgesia: Anxiety/ delirium VTE Prophylaxis: follow inr Stress Ulcer Prophylaxis: ppi Glycemic Control: Plans in collaboration with bedside consultants and IM MDs. Discussed with RN to reach out if any questions or concerns A total of 31 minutes of critical care time was devoted to this patient today, required to treat and/or prevent further deterioration of critical care condition ( as above ) . JOHNNIE MONET MD Sep 13, 2021 10:37
--- NOTE | 2021-09-13 11:54 | Occupational Therapy Eval ---
OT Evaluation-General/PLF Medical Diagnosis Admission Date Sep 11, 2021 at 21:05 Medical Diagnosis: Small Bowel Obstruction Onset Date: Sep 11, 2021 Therapy Diagnosis Therapy Diagnosis: n/a Height/Weight Height (Feet): 5 Height (Inches): 2.00 Weight (Pounds): 154 Weight (Ounces): 0.0 Precautions Precautions/Isolations: Fall Prevention, Standard Precautions Referral Physician: Praful Referral Reason: Evaluation/Treatment Medical History Pertinent Medical History: Atrial Fib, HTN Additional Medical History HTN, afib, valvular heart disease, diverticulosis, arthritis Current History presents with abdominal pain Social History Home: Single Level Current Living Status: Spouse Entry Into Home: Ramp ADL-Prior Level of Function SCALE: Activities may be completed with or without assistive devices. 0-Nvzkyxazbq-[id number] completes the activity by him/herself with no assistance from a helper. 5-Set-up or Clean-up Assistance-helper sets up or cleans up; patient completes activity. Thompson assists only prior to or following the activity. 4-Supervision or Touching Assistance-helper provides verbal cues and/or touching/steadying and/or contact guard assistance as patient completes activity. Assistance may be provided throughout the activity or intermittently. 3-Partial/Moderate Assistance-helper does LESS THAN HALF the effort. Thompson lifts, holds or supports trunk or limbs, but provides less than half the effort. 2-Substantial/Maximal Assistance-helper does MORE THAN HALF the effort. Thompson lifts or holds trunk or limbs and provides more than half the effort. 0-Lbppzmcve-lifdyh does ALL the effort. Patient does none of the effort to complete the activity. Or, the assistance of 2 or more helpers is required for the patient to complete the activity. If activity was not attempted, code reason: 7-Patient Refused. 9-Not Applicable-not attempted and the patient did not perform the activity before the current illness, exacerbation or injury. 10-Not Attempted due to Environmental Limitations-(lack of equipment, weather restraints, etc.). 88-Not Attempted due to Medical Conditions or Safety Concerns. ADL PLOF Comments Pt has assistance with all ADLs at PLOF, using a manual or powered w/c. She has assistance with bathing and dressing, and assistance with toileting as needed. Self Care: Needed Some Help Functional Cognition: Independent OT Current Status Subjective Pt in bed, agreeable to OT tx. Mental Status/Objective Patient Orientation: Person, Place, Situation Current Upper Extremity ROM WFL during session ADL-Treatment Eating (QC): 5 (set up assistance with lunch.) Toileting Hygiene (QC): 1 (Per nursing report, total assist.) Other Treatments Pt in bed, assist x2 to scoot up towards HOB. Pt reports she has assistance with all ADLs at PLOF. Pt's lunch arrived, assistance provided to open condiment packets and cut burger in half. Pt able to eat after set up assistance. Post tx, pt in bed, call light in reach and all needs met. Education OT Patient Education: Correct positioning, Energy conservation, Modified ADL t echniques, Progress toward Goal/Update tx plan, Purpose of tx/functional activities, Rehab process Teaching Recipient: Patient Teaching Methods: Discussion Response to Teaching: Verbalize Understanding OT Test Desk Supervisor Goals Test Desk Supervisor Goals 1=Demonstrate adherence to instructed precautions during ADL tasks. 2=Patient will verbalize/demonstrate understanding of assistive devices/modifications for ADL. 3=Patient will improve strength/tolerance for activity to enable patient to perform ADL's. OT Education/Plan Problem List/Assessment Assessment: No Skilled OT Needs ID'd No skilled OT services indicated at this time, as pt has assistance with all ADLs at baseline and is at her PLOF. Discharge Recommendations Plan/Recommendations: Discharge/Goals Met Treatment Plan/Plan of Care Patient would benefit from OT for education, treatment and training to promote independence in ADL's, mobility, safety and/or upper extremity function for ADL's. Plan of Care: ADL Retraining Treatment Duration: Sep 13, 2021 Frequency: 1 time per week (eval only) Estimated Hrs Per Day: .25 hour per day Rehab Potential: Fair Time/GCodes Start Time: 11:07 Stop Time: 11:18 Total Time Billed (hr/min): 11 Billed Treatment Time 1, PRUDENCIO ZARATE OT Sep 13, 2021 11:54
--- NOTE | 2021-09-13 13:20 | Discharge Summary ---
Discharge Summary Instructions for Patient Via [facility], Assessment/Instructions Take medications as prescribed. Follow up with your PCP in about a week. Return with worsening abdominal pain, nausea and vomiting, or if you feel like you are getting worse. Physician to follow Patient: [place] Discharge Diet for Home: No Restrictions Hospital Course Date of Admission: Sep 11, 2021 at 21:05 Admission Diagnosis : Small bowel obstruction Family Physician/Provider: Leticia Mathew MD Date of Discharge: 09/13/21 Discharge Diagnosis: Small bowel obstruction Hospital Course: Monalisa Schmitt is an 89 year old female with PMH HTN, AFib, history of small bowel obstructions, history of partial colectomy, who was admitted with small bowel obstruction. CT was consistent with obstruction. She was treated conservatively and her symptoms improved. She underwent a small bowel follow through which showed no evidence of ongoing obstruction. She began having bowel movements and her pain improved. Her diet was advanced and she tolerated this well. She was discharged home in stable condition. She should resume her home health care. She should follow up with her primary care physician, Dr. Mathew, in about a week. Labs and Pending Lab Test: Laboratory Tests 09/13/21 04:33: White Blood Count 8.1, Red Blood Count 4.00, Hemoglobin 10.3L, Hematocrit 34L, Mean Corpuscular Volume 86, Mean Corpuscular Hemoglobin 26, Mean Corpuscular Hemoglobin Concent 30L, Red Cell Distribution Width 16.6H, Platelet Count 217, Mean Platelet Volume 9.1, Immature Granulocyte % (Auto) 0, Neutrophils (%) (Auto) 72, Lymphocytes (%) (Auto) 19, Monocytes (%) (Auto) 8, Eosinophils (%) (Auto) 2, Basophils (%) (Auto) 0, Neutrophils # (Auto) 5.8, Lymphocytes # (Auto) 1.5, Monocytes # (Auto) 0.6, Eosinophils # (Auto) 0.1, Basophils # (Auto) 0.0, Immature Granulocyte # (Auto) 0.0, Sodium Level 137, Potassium Level 4.3, Chloride Level 107, Carbon Dioxide Level 23, Anion Gap 7, Blood Urea Nitrogen 10, Creatinine 0.71, Estimat Glomerular Filtration Rate 82, BUN/Creatinine Ratio 14, Glucose Level 111H, Calcium Level 8.1L, Corrected Calcium 9.1, Phosphorus Level 2.3, Magnesium Level 1.8, Total Bilirubin 0.4, Aspartate Amino Transf (AST/SGOT) 19, Alanine Aminotransferase (ALT/SGPT) 20, Alkaline Phosphatase 84, Total Protein 6.3L, Albumin 2.7L Microbiology 09/12/21 MRSA Screen - Final, Complete MRSA not isolated Home Meds Active Reported Diltiazem ER (Diltiazem HCl) 180 Mg Capsule.er 180 Mg PO DAILY Cetirizine HCl 10 Mg Tablet 10 Mg PO DAILY PRN Stool Softener (Docusate Sodium) 100 Mg Tablet 100 Mg PO BID PRN Klor-Con 10 (Potassium Chloride) 10 Meq Tablet.er 10 Meq PO DAILY PRN ONLY TAKE IF FUROSEMIDE IS BEING TAKEN Furosemide 40 Mg Tablet 40 Mg PO DAILY PRN Pramipexole Dihydrochloride (Pramipexole Di-HCl) 0.25 Mg Tablet 0.5 Mg PO 1800 TAKES 2 (0.25MG) TABS Timolol Maleate 0.5% (Timolol Maleate) 5 Ml Drops 1 Drop OU BID Gabapentin 100 Mg Capsule 200 Mg PO HS TAKES 2 (100MG) CAPS Xalatan (Latanoprost) 2.5 Ml Drops 1 Drop OU HS Omeprazole 20 Mg Capsule.dr 20 Mg PO DAILY Warfarin Sodium 5 Mg Tablet 5 Mg PO WE,SAT Warfarin Sodium 5 Mg Tablet 2.5 Mg PO DURAN,MO,,,FR TAKES OF A 5MG Tramadol HCl 50 Mg Tablet 50 Mg PO HS Famotidine 20 Mg Tablet 20 Mg PO BID PRN Hyoscyamine Sulfate 0.125 Mg Tab.rapdis 0.125 Mg PO Q8- 12H PRN Consulations Surgery Patient Allergies: Coded Allergies: diphenhydramine (Verified Allergy, Unknown, 10/20/20) Height (Feet): 5 Height (Inches): 2.00 Weight (Pounds): 154 Weight (Ounces): 0.0 Home Health Need/Face to Face Date of Face to Face: Sep 13, 2021 Clinical Findings: Generalized weakness and fatigue, Muscle weakness, Unsteady gait I have seen Pt [id number]: Yes Discharged To: Home Diagnosis/Conditions: Small bowel obstruction Paroxysmal atrial fibrillation Hypertension Problems/Diagnosis/Condition: (1) Small bowel obstruction (2) Paroxysmal atrial fibrillation (3) HTN (hypertension) Patient is Homebound due to: Krystal fall risk due to instabilty, Muscle weakness Homebound Status Due to the above stated illness, injury or surgical procedure (medical condition or diagnosis) and associated clinical findings, the patient is homebound because of his/her inability to leave home except with aid of a supportive device and/or person AND leaving the home requires a considerable and taxing effort or is medically contraindicated. Pt req the following assistanc: Aid of another person, Wheelchair Home Health Nursing Orders Home Health Services Order: Nursing Services, [employer] Teacher-Evaluate & Treat, Physical Therapy-Evaluate & Treat Home Health Infusion Therapy Line Start Date: Sep 11, 2021 Therapy Orders Therapy Orders: OT (must have SN or PT order), Physical Therapy Therapy Specific Orders: Eval assistive deivces, Teach enviro modifications/safety, Gait training, Increase strength/endurance Certify Stmt I certify that this patient is under my care and that I, a nurse practitioner or a physician; a behavioral assistant working with me, had a face to face encounter that - meets the physician face to face encounter requirements with this patient as dated. Discharge Physical Exam General: Alert, Oriented X3, Cooperative, No Acute Distress HEENT: Atraumatic, EOMI, Mucous Memb Moist/[place] Lungs: Clear to Auscultation, Normal Air Movement Heart: Regular Rate, Normal S1, Normal S2, No Murmurs Abdomen: Normal Bowel Sounds, Soft, No Tenderness Extremities: No Edema, No Tenderness/Swelling Skin: No Rashes, No Significant Lesion Neuro: Normal Speech, Normal Tone Psych/Mental Status: Mental Status NL, Mood NL JERMAINE BARROS MD Sep 13, 2021 13:19
[2021-09-13 14:34] VITALS: BP 112/60
[2021-09-13] MEDS ORDERED: warFARin 2.5 MG (COUMADIN) TAB PO SCH (18:00)
--- NOTE | 2021-09-13 18:23 | Progress Note - Cardiology ---
Cardiology SOAP Progress Note Subjective: No n/v/d No abd discomfort No cp or palp or syncope or shortness of breath Some gen malaise Objective: I&O/Vital Signs 09/13/21 09/13/21 09/13/21 09/13/21 07:00 07:00 07:00 08:00 Temp 36.5 Pulse 105 92 99 Resp 19 15 B/P (MAP) 132/98 129/96 Pulse Ox 99 96 O2 Delivery Nasal Cannula Nasal Cannula O2 Flow Rate 2.00 2.00 09/13/21 09/13/21 09/13/21 09/13/21 08:16 08:19 09:00 10:00 Pulse 93 105 Resp 11 21 B/P (MAP) 138/85 147/91 Pulse Ox 98 91 91 O2 Delivery Room Air Room Air Room Air Room Air 09/13/21 09/13/21 09/13/21 09/13/21 11:00 11:28 12:00 12:15 Temp 36.8 Pulse 108 108 Resp 10 13 B/P (MAP) 132/87 112/60 Pulse Ox 93 97 98 O2 Delivery Room Air Room Air Room Air 09/13/21 09/13/21 13:00 14:34 Temp 36.8 Pulse 78 78 Resp 13 B/P (MAP) 112/60 Pulse Ox 98 O2 Delivery Room Air 09/13/21 00:00 Intake Total 160 ml Output Total 650 ml Balance -490 ml Weight (Pounds): 154 Weight (Ounces): 0.0 Weight (Calculated Kilograms): [id number] Constitutional: AAO x 3, well-developed, well-nourished Respiratory: No accessory muscle use, No respiratory distress; chest expansion is symmetric, chest is bilaterally symmetric, lungs clear to auscultation Cardiovascular: irregularly irregular; No JVD; S1 and S2 Gastrointestional: soft; No guarding Extremities: other (mod bilat LE swelling) Neurologic/Psychiatric: grossly intact (moves all extremities) Skin: No rash on exposed areas, No ulcerations on exposed areas Results/Procedures: Labs Laboratory Tests 09/13/21 04:33: White Blood Count 8.1, Red Blood Count 4.00, Hemoglobin 10.3L, Hematocrit 34L, Mean Corpuscular Volume 86, Mean Corpuscular Hemoglobin 26, Mean Corpuscular Hemoglobin Concent 30L, Red Cell Distribution Width 16.6H, Platelet Count 217, Mean Platelet Volume 9.1, Immature Granulocyte % (Auto) 0, Neutrophils (%) (Auto) 72, Lymphocytes (%) (Auto) 19, Monocytes (%) (Auto) 8, Eosinophils (%) (Auto) 2, Basophils (%) (Auto) 0, Neutrophils # (Auto) 5.8, Lymphocytes # (Auto) 1.5, Monocytes # (Auto) 0.6, Eosinophils # (Auto) 0.1, Basophils # (Auto) 0.0, Immature Granulocyte # (Auto) 0.0, Sodium Level 137, Potassium Level 4.3, Chloride Level 107, Carbon Dioxide Level 23, Anion Gap 7, Blood Urea Nitrogen 10, Creatinine 0.71, Estimat Glomerular Filtration Rate 82, BUN/Creatinine Ratio 14, Glucose Level 111H, Calcium Level 8.1L, Corrected Calcium 9.1, Phosphorus [place] 2.3, Magnesium Level 1.8, Total Bilirubin 0.4, Aspartate Amino Transf (AST/SGOT) 19, Alanine Aminotransferase (ALT/SGPT) 20, Alkaline Phosphatase 84, Total Protein 6.3L, Albumin 2.7L Microbiology 09/12/21 MRSA Screen - Final, Complete MRSA not isolated A/P: Assessment: SBO - management per Surgical and Medical services SSS and PAF. - rate controlled on diltiazem - Holter of 03/12/19: NSR with rates 45-107 and av 66 bpm, multiple brief runs of SVT/AFib - ECGs of 10/20/20 and 11/08/20: A Fib with RVR - OAC with warfarin - managed by our office - MPI of Mar 2019 showed no evidence of any significant myocardial ischemia or infarction. LVEF 73% Mitral Regurg - Echo of 06/01/20: LVEF 50-55%, mod dil of RA and LA, mod to sev MR, AoV sclerosis, mod to sev tricuspid regurg, RVSP 65-70 mmHg Pulm hypertension - (see echo results above) MANJEET - mild on a sleep study in early 1999s at [place] (according to pt and family) Chronic leg swelling - considerably more on the L, likely due to venous insuff. - Chronically on diuretics - Bilat leg venous Doppler 09/12/21: no DVT Lumbago - lumbar spinal stenosis treated with L4-L5, L5-S1 laminectomy, medial facetectomy and foraminotomy by Dr Tapia on 06/09/19 in [place] PVD - TOVA on 10/10/20: mild peripheral vascular disease (TOVA 0.85 on the L and 0.93 on the R) Carotid dz - H/o carotid arterial disease. States last test was with [facility] many years ago Plan: Change IV Cardizem over to oral home dose Warfarin has been resumed - monitor INR closely Monitor lab Replace electrolytes as indicated STEVE ADAM MD FACP FACC CCDS Sep 13, 2021 18:23
== END 2021-09-13 14:30 | disposition home health service (06) | DRG 390 ==
LOC: EDUNIT# 19:13 → ER 19:14 → ICU 21:05
PROVIDERS: ADMIT Internal Medicine; ATTEND Internal Medicine
PROC: 8E0ZXY6 Isolation (ICD-10-PCS; principal; 2021-09-11)
DX: K56.600 Partial intestinal obstruction, unspecified as to cause (principal); K58.1 Irritable bowel syndrome with constipation; I48.0 Paroxysmal atrial fibrillation; I49.5 Sick sinus syndrome; E78.00 Pure hypercholesterolemia, unspecified; E78.5 Hyperlipidemia, unspecified; I08.3 Combined rheumatic disorders of mitral, aortic and tricuspid valves; I27.20 Pulmonary hypertension, unspecified; G47.33 Obstructive sleep apnea (adult) (pediatric); I10 Essential (primary) hypertension; K57.90 Diverticulosis of intestine, part unspecified, without perforation or abscess without bleeding; M19.91 Primary osteoarthritis, unspecified site; I87.2 Venous insufficiency (chronic) (peripheral); M54.50 Low back pain, unspecified; I73.9 Peripheral vascular disease, unspecified; F41.9 Anxiety disorder, unspecified; Z88.8 Allergy status to other drugs, medicaments and biological substances; Z79.01 Long term (current) use of anticoagulants
CPT/HCPCS: 36415; 51702; 74176; 74250; 80053; 81000; 82150; 82550; 82553; 83690; 83735; 83880; 84100; 84443; 84484; 85007; 85025; 85027; 85610; 85730; 87081; 93005; 93041; 93970

== ENCOUNTER → 2022-05-03 | Outpatient (CLI) | payer MEDICARE ==
[~2022-05-03] MED LIST changes: +CETI10TA17 PO; +DILT180C82 PO
== END ==
LOC: CARD 14:37
PROVIDERS: ATTEND Nurse Practitioner Family
DX: I08.3 Combined rheumatic disorders of mitral, aortic and tricuspid valves (principal); I27.21 Secondary pulmonary arterial hypertension
CPT/HCPCS: 93306

== ENCOUNTER 2022-08-20 10:50 | Outpatient (CLI) | payer MEDICARE | END 2022-08-20 11:20 | LOC: SLEEP 10:50 | PROVIDERS: ATTEND Otolaryngology Otolaryngology/Facial Plastic Surgery | DX: G47.33 Obstructive sleep apnea (adult) (pediatric) (principal); G47.10 Hypersomnia, unspecified; R06.83 Snoring | CPT/HCPCS: G0399 ==

== ENCOUNTER 2022-11-03 03:34 | Emergency (ER) | payer MEDICARE ==
[~2022-11-03] VITALS: Ht 157.5 cm; Wt 69.8 kg
--- NOTE | 2022-11-03 04:08 | ED General ---
General Chief Complaint: Cough/Cold/Flu Symptoms Stated Complaint: CONGESTION Nursing Triage Note: COUGH SINCE 10/30/22, RIGHT EYE REDNESS, NEGATIVE HOME COVID TEST. Source of Information: Patient, Old Records Exam Limitations: No Limitations History of Present Illness Date Seen by Provider: Nov 03, 2022 Time Seen by Provider: 03:57 Initial Comments This 89-year-old woman is brought to the emergency room by her daughter with concerns about cough for 1 week. Daughter felt that respirations sounded labored at home. She became concerned enough about this that she thought it warranted a visit to the emergency room. Respirations sound better now. Patient denies any fever or shortness of breath. She has not had any nausea or vomiting. She sometimes has diarrhea alternating with constipation but no change acutely in bowels. She has atrial fibrillation and takes Xarelto. She has chronic lower extremity edema with the left lower extremity chronically more swollen than the right. Most recent echocardiogram from April of last year demonstrates preserved ejection fraction with grade 3 diastolic dysfunction. Patient does have a prescription for Lasix but she only takes it about once per week. Allergies and Home Medications Allergies Coded Allergies: diphenhydramine (Verified Allergy, Unknown, 10/20/20) Patient Home Medication List Home Medication List Reviewed: Yes Cefdinir (Cefdinir) 300 Mg Capsule, 300 MG PO BID Prescribed by: KHRIS HOYT on 11/03/22 0612 Cetirizine HCl (Cetirizine HCl) 10 Mg Tablet, 10 MG PO DAILY PRN for ALLERGY SYMPTOMS, (Reported) Entered as Reported by: DOV QUIGLEY on 09/12/21 1009 Diltiazem HCl (Diltiazem ER) 180 Mg Capsule.er, 180 MG PO DAILY, (Reported) Entered as Reported by: DOV QUIGLEY on 09/12/21 1009 Docusate Sodium (Stool Softener) 100 Mg Tablet, 100 MG PO BID PRN for CONSTIPATION-1ST LINE, (Reported) Entered as Reported by: DOV QUIGLEY on 03/29/21 0843 Famotidine (Famotidine) 20 Mg Tablet, 20 MG PO BID PRN for HEARTBURN, (Reported) Entered as Reported by: DOV QUIGLEY on 03/29/21 0843 Furosemide (Furosemide) 40 Mg Tablet, 40 MG PO DAILY PRN for FLUID RETENTION, (Reported) Entered as Reported by: DOV QUIGLEY on 03/29/21842 Gabapentin (Gabapentin) 100 Mg Capsule, 200 MG PO HS, (Reported) Entered as Reported by: DOV QUIGLEY on 03/29/21842 Hyoscyamine Sulfate (Hyoscyamine Sulfate) 0.125 Mg Tab.rapdis, 0.125 MG PO Q8- 12H PRN for ABDOMINAL SPASMS, (Reported) Entered as Reported by: DOV QUIGLEY on 03/29/21842 Latanoprost (Xalatan) 2.5 Ml Drops, 1 DROP OU HS, (Reported) Entered as Reported by: DOV QUIGLEY on 03/29/21842 Omeprazole (Omeprazole) 20 Mg Capsule.dr, 20 MG PO DAILY, (Reported) Entered as Reported by: DOV QUIGLEY on 03/29/21842 Potassium Chloride (Klor-Con 10) 10 Meq Tablet.er, 10 MEQ PO DAILY PRN for FLUID RETENTION, (Reported) Entered as Reported by: DOV QUIGLEY on 03/29/21842 Pramipexole Di-HCl (Pramipexole Dihydrochloride) 0.25 Mg Tablet, 0.5 MG PO 1800, (Reported) Entered as Reported by: DOV QUIGLEY on 03/29/21842 Timolol Maleate (Timolol Maleate 0.5%) 5 Ml Drops, 1 DROP OU BID, (Reported) Entered as Reported by: DOV QUIGLEY on 03/29/21842 Tramadol HCl (Tramadol HCl) 50 Mg Tablet, 50 MG PO HS, (Reported) Entered as Reported by: DOV QUIGLEY on 03/29/21842 Warfarin Sodium (Warfarin Sodium) 5 Mg Tablet, 2.5 MG PO DURAN,MO,TU,TH,FR, (Reported) Entered as Reported by: DOV QUIGLEY on 03/29/21842 Warfarin Sodium (Warfarin Sodium) 5 Mg Tablet, 5 MG PO WE,SAT, (Reported) Entered as Reported by: DOV QUIGLEY on 03/29/21842 Review of Systems Review of Systems Constitutional: no symptoms reported EENTM: see HPI Respiratory: see HPI Cardiovascular: see HPI Gastrointestinal: no symptoms reported Genitourinary: no symptoms reported : No Musculoskeletal: no symptoms reported Skin: no symptoms reported Psychiatric/Neurological: No Symptoms Reported Hematologic/Lymphatic: No Symptoms Reported Immunological/Allergic: no symptoms reported Past Axdlpnu-Joqvns-Mxitmj Hx Patient Social History Tobacco Use?: No Substance use?: No Alcohol Use?: No Pt feels they are or have been: No Immunizations Up To Date Tetanus Booster (TDap): Unknown First/Initial COVID19 Vaccinat: AUGUST 2020 Second COVID19 Vaccination Pasquale: SEPTEMBER 2020 Third COVID19 Vaccination Date: AUGUST 2020 Seasonal Allergies Seasonal Allergies: Yes Past Medical History Surgery/Hospitalization HX: AFIB, ANX, GERD, HLD, HTN, VALVULAR HEART DISEASE, DIVERTICULITIS, CONSTIPATION, DIARRHEA COLON RESECTION, CHOLECYSTECTOMY Surgeries: Yes (COLON RESECTION) Abdominal, Bowel Surgery, Gallbladder, Hysterectomy, Orthopedic Respiratory: No Cardiac: Yes Atrial Fibrillation, High Cholesterol, Hypertension, Valvular Heart Disease Neurological: No Genitourinary: No Gastrointestinal: Yes (COLON RESECTION FOR DIVERTICULITIS. ) Obstructive Bowel, Chronic Constipation, Diverticulosis, Chronic Diarrhea, Irritable Bowel Musculoskeletal: Yes Arthritis Endocrine: No HEENT: Yes Cataract Cancer: No Psychosocial: Yes Sleep Difficulties, Anxiety Integumentary: No Blood Disorders: No Family Medical History No Pertinent Family Hx PAST SURGICAL HISTORY: -PARTIAL COLECTOMY FOR DIVERTICULAR DISEASE -CHOLECYSTECTOMY -HYSTERECTOMY Physical Exam Vital Signs Vital Signs - First Documented 11/03/22 03:44 Temp 36.4 Pulse 87 Resp 16 B/P (MAP) 125/87 (100) Pulse Ox 94 O2 Delivery Room Air Capillary Refill : Less Than 3 Seconds Height, Weight, BMI Height: 5'2.00" Weight: 154lbs. 0.0oz. [id number]; 28.00 BMI Method:Estimated General Appearance: No Apparent Distress, WD/WN HEENT: PERRL/EOMI, Normal ENT Inspection Neck: Normal Inspection Respiratory: No Accessory Muscle Use, No Respiratory Distress, Crackles (bilateral bases), Wheezing (faint and scattered) Cardiovascular: Regular Rate, Rhythm, No Edema, No Murmur Gastrointestinal: Non Tender, Soft Extremity: Normal Inspection, Pedal Edema Neurologic/Psychiatric: Alert, Oriented x3, No Motor/Sensory Deficits, Normal Mood/Affect Skin: Normal Color, Warm/Dry Progress/Results/Core Measures Suspected Sepsis SIRS Temperature: Pulse: 87 Respiratory Rate: 16 Laboratory Tests 11/03/22 04:54: White Blood Count 9.2 Blood Pressure 125 /87 Mean: 100 Laboratory Tests 11/03/22 04:54: Creatinine 0.86, Platelet Count 255 Results/Orders Lab Results Laboratory Tests Test 11/03/22 04:00 11/03/22 04:54 Range/Units Influenza Type A (RT-PCR) Not Detected Not Detecte Influenza Type B (RT-PCR) Not Detected Not Detecte SARS-CoV-2 RNA (RT-PCR) Not Detected Not Detecte White Blood Count 9.2 4.3-11.0 10^3/uL Red Blood Count 4.23 3.80-5.11 10^6/uL Hemoglobin 10.4 L 11.5-16.0 g/dL Hematocrit 34 L 35-52 % Mean Corpuscular Volume 81 80-99 fL Mean Corpuscular Hemoglobin 25 25-34 pg Mean Corpuscular Hemoglobin Concent 30 L 32-36 g/dL Red Cell Distribution Width 17.0 H 10.0-14.5 % Platelet Count 255 130-400 10^3/uL Mean Platelet Volume 9.0 9.0-12.2 fL Immature Granulocyte % (Auto) 0 % Neutrophils (%) (Auto) 71 42-75 % Lymphocytes (%) (Auto) 18 12-44 % Monocytes (%) (Auto) 9 0-12 % Eosinophils (%) (Auto) 2 0-10 % Basophils (%) (Auto) 0 0-10 % Neutrophils # (Auto) 6.5 1.8-7.8 10^3/uL Lymphocytes # (Auto) 1.6 1.0-4.0 10^3/uL Monocytes # (Auto) 0.8 0.0-1.0 10^3/uL Eosinophils # (Auto) 0.1 0.0-0.3 10^3/uL Basophils # (Auto) 0.0 0.0-0.1 10^3/uL Immature Granulocyte # (Auto) 0.0 0.0-0.1 10^3/uL Sodium Level 141 135-145 MMOL/L Potassium Level 4.1 3.6-5.0 MMOL/L Chloride Level 108 H 98-107 MMOL/L Carbon Dioxide Level 23 21-32 MMOL/L Anion Gap 10 5-14 MMOL/L Blood Urea Nitrogen 16 7-18 MG/DL Creatinine 0.86 0.60-1.30 MG/DL Estimat Glomerular Filtration Rate 65 BUN/Creatinine Ratio 19 Glucose Level 106 H 70-105 MG/DL Calcium Level 8.6 8.5-10.1 MG/DL C-Reactive Protein High Sensitivity 3.25 H 0.00-0.50 MG/DL B-Type Natriuretic Peptide 490.9 H <100.0 PG/ML My Orders Orders - KHRIS HOPE MD Covid 19 Inhouse Test (11/03/22 03:57) Influenza A And B By Pcr (11/03/22 03:57) Chest Pa/Lat (2 View) (11/03/22 04:23) Basic Metabolic Panel (11/03/22 04:48) Bnp Sanju (11/03/22 04:48) Cbc With Automated Diff (11/03/22 04:48) Hs C Reactive Protein (11/03/22 04:48) Ed Iv/Invasive Line Start (11/03/22 04:48) Cefdinir Capsule (Omnicef Capsule) (11/03/22 06:15) Vital Signs/I&O 11/03/22 11/03/22 03:44 07:08 Temp 36.4 Pulse 87 96 Resp 16 18 B/P (MAP) 125/87 (100) 137/82 Pulse Ox 94 96 O2 Delivery Room Air Capillary Refill : Less Than 3 Seconds Blood Pressure Mean: 100 Progress Note : Progress Note Patient and daughter were interviewed and patient was examined. She was found to have crackles in the lower lung stokes. Evaluation with chest x-ray was inconclusive as there could be infiltrate, pulmonary edema, and/or chronic parenchymal changes. Labs were obtained to help further differentiate her symptoms. BNP was modestly elevated and CRP was minimally elevated. Given the increased edema, more frequent use of Lasix was recommended. She was started on cefdinir for possible pneumonia given the week of persistent cough. See discharge instructions for further discussion. Diagnostic Imaging Diagonstic Imaging: Xray Plain Films/CT/US/NM/MRI: chest Comments Chest x-ray was viewed by me and radiologist's report not yet available. There appears to be significant lower lung infiltrate and/or edema which is somewhat advanced from prior. Persistent cardiomegaly noted. Departure Impression Primary Impression: Cough Qualified Codes: R05.1 - Acute cough Additional Impressions: Diastolic heart failure Qualified Codes: I50.30 - Unspecified diastolic (congestive) heart failure Pulmonary infiltrate Disposition: HOME, SELF-CARE Condition: Stable Departure-Patient Inst. Decision time for Depature: 05:55 Referrals: KULDEEP HOGAN MD (PCP/Family) Primary Care Physician Patient Instructions: Heart Failure ED, Community-Acquired Pneumonia in Adults Add. Discharge Instructions: Your respiratory symptoms may be due to a combination of mild heart failure exacerbation and/or pneumonia. I recommend taking a dose of Lasix and potassium today and again tomorrow. Then stay on a schedule of Friday, Friday, and Friday dosing until otherwise instructed by your primary care doctor or computer applications developer. Complete the antibiotic as prescribed. Take your next dose of antibiotics this evening. Call your doctors office on Friday morning to arrange follow-up. It would be best if you could be seen in the clinic this week for repeat exam and a check of vital signs. Return to care if you have worsening symptoms despite following these instructions. All discharge instructions reviewed with patient and/or family. Voiced understanding. Scripts Cefdinir (Cefdinir) 300 Mg Capsule 300 MG PO BID, #14 CAP 0 Refills Prov: KHRIS HOPE MD 11/03/22 Copy Copies To 1: KULDEEP HOGAN MD Copies To 2: STEVE ADAM MD [facility] KHRIS HOPE MD Nov 03, 2022 04:08
[2022-11-03 05:03] LABS: BASOPHILS % (AUTO) 0 % (0-10); EOSINOPHILS # (AUTO) 0.1 10^3/uL (0.0-0.3); EOSINOPHILS % (AUTO) 2 % (0-10); HEMATOCRIT 34 % (35-52); HEMOGLOBIN 10.4 g/dL (11.5-16.0); LYMPHOCYTES # (AUTO) 1.6 10^3/uL (1.0-4.0); LYMPHOCYTES % (AUTO) 18 % (12-44); MEAN CORPUSCULAR HEMOGLOBIN 25 pg (25-34); MEAN CORPUSCULAR HGB CONC 30 g/dL (32-36); MEAN CORPUSCULAR VOLUME 81 fL (80-99); MONOCYTES # (AUTO) 0.8 10^3/uL (0.0-1.0); MONOCYTES % (AUTO) 9 % (0-12); NEUTROPHILS # (AUTO) 6.5 10^3/uL (1.8-7.8); NEUTROPHILS % (AUTO) 71 % (42-75); PLATELET COUNT 255 10^3/uL (130-400); WHITE BLOOD COUNT 9.2 10^3/uL (4.3-11.0)
[2022-11-03 05:26] LABS: POTASSIUM 4.1 MMOL/L (3.6-5.0)
[2022-11-03 05:27] LABS: CALCIUM 8.6 MG/DL (8.5-10.1)
[2022-11-03 05:32] LABS: CREATININE SERUM 0.86 MG/DL (0.60-1.30)
--- NOTE | 2022-11-03 05:51 | Diagnostic Imaging Report ---
INDICATION: Cough. TECHNIQUE: Two view chest 4:53 AM CORRELATION STUDY: 03/28/2021 FINDINGS: Heart size enlarged. Vasculature overall within normal limits. Calcification of the aortic arch. Marked prominent interstitial markings at lung stokes with change about the lung parenchyma. Superimposed infiltrate does not appear to be present. Findings compatible with previous right chest wall traumatic change. IMPRESSION: 1. Cardiac enlargement without over failure. Rather advanced likely chronic change about the lung parenchyma. No definitive infiltrate. Dictated by: Dictated on workstation # [id number]
[2022-11-03] MEDS ORDERED: CEFD300C3 PO (06:12)
[2022-11-03] MEDS ORDERED: CEFDINIR 300 MG (OMNICEF) CAP PO ONE (06:15)
[2022-11-03 07:08] VITALS: BP 137/82
== END 2022-11-03 07:08 | disposition home or self-care (01) ==
LOC: EDUNIT# 03:34 → ER 03:37
DX: I11.0 Hypertensive heart disease with heart failure (principal); I50.30 Unspecified diastolic (congestive) heart failure; R91.8 Other nonspecific abnormal finding of lung field; I48.91 Unspecified atrial fibrillation; Z79.01 Long term (current) use of anticoagulants; Z20.822 Contact with and (suspected) exposure to COVID-19
CPT/HCPCS: 36415; 71046; 80048; 83880; 85025; 86141; 87636